=== PATIENT | female | born 1955 | race Caucasian/White ===

== ENCOUNTER → 2017-06-21 | Day surgery (SDC) | payer BC ==
[~2017-06-21] VITALS: Ht 170.2 cm; Wt 88.6 kg
[~2017-06-21] MED LIST: ATEN-173 PO; CALC500T83 PO; EPGI10M; LIDOCAINE HCL 2% 2 ML VIAL (20MG/ML) ONE; LOSA50TA6 PO; MYCO500T4 PO; PROPOFOL IV EMULSION 10 MG/ML 20 ML VIAL IV ONE; SODI650T8 PO; SODIUM CHLORIDE 0.9% 500ML 500 ML IV ONE; VTMD1000 PO
[2017-06-21 08:04] VITALS: Ht 170.2 cm; Wt 88.6 kg
--- NOTE | 2017-06-21 08:42 | Endo History and Physical ---
History & Physical Date of Service: Jun 21, 2017. Chief Complaint: SCREENING Referring Physician: DR ALL ZUNIGA History of Present Illness patient for screening colonoscopy Past Surgical History Hx Cardiac Surgery: No Hx Internal Defibrillator: No Hx Pacemaker: No Hx Abdominal Surgery: No Hx of Implantable Prosthesis: No Hx Post-Op Nausea and Vomiting: No Hx Orthopedic: Yes (RT ACL RECONSTRUCTION) Hx Urinary Tract Surgery: Yes (KIDNEY BIOPSY) Family History None Social History Smoking Status: Never Smoker Hx Substance Use: No Allergies Coded Allergies: NO KNOWN DRUG ALLERGIES (Verified Allergy, Unknown, ., 06/21/17) Current Medications Reported Home Medications Medications Dose Route/Sig Max Daily Dose Days Date Category Procrit (Epoetin Rogerio) 10,000 Units Inj 06/21/17 Reported Sodium Bicarbonate 650 Mg Tab 2 Tab PO BID 06/12/17 Reported Calcium 500 Mg Tab 2 Tab PO QAM 06/12/17 Reported Vitamin D3 (Cholecalciferol) 1,000 Inter.unit Tab 2 Tab PO QAM 06/12/17 Reported Cellcept (Mycophenolate Mofetil) 500 Mg Tab 2 Tab PO BID 06/12/17 Reported Tenormin (Atenolol) 25 Mg Tab 25 Mg PO HS 06/12/17 Reported Cozaar (Losartan Potassium) 50 Mg Tab 50 Mg PO BID 06/12/17 Reported Vital Signs Weight (Kilograms): 88.64 Height (Feet): 5 Height (Inches): 7 Date Time Temp Pulse Resp B/P (MAP) Pulse Ox O2 Delivery O2 Flow Rate FiO2 06/21/17 08:10 36.6 60 16 163/54 (90) 98 Room Air Physical Exam General Appearance: no apparent distress Respiratory/Chest: Auscultation: breath sounds normal Cardiovascular: Heart Auscultation: RRR Abdomen: Inspection & Palpation: soft Liver: non-tender Assessment and Plan stable for colonoscopy
--- NOTE | 2017-06-21 09:11 | Discharge Instructions ---
Endoscopy Patient Instructions Date / Procedure(s) Performed Jun 21, 2017. Colonoscopy Allergy Information Coded Allergies: NO KNOWN DRUG ALLERGIES (Verified Allergy, Unknown, ., 06/21/17) Discharge Date / Findings Jun 21, 2017. Hemorrhoids otherwise normal colonoscopy Provider Instructions Activity Restrictions - No exercising or heavy lifting for 24 hours. - Do not drink alcohol the day of the procedure. - Do not drive a car or operate machinery until the day after the procedure. - Do not make any important decisions or sign important papers in 24 hours after the procedure. Following Day: - Return to full activity which may include returning to work/school. Diet Start your diet with liquids and light foods (jello, soup, juice, toast). Then eat your usual diet if not nauseated. Treatment For Common After Affects For mild abdominal pain, bloating, or excessive gas: - Rest - Eat lightly - Lie on right side Follow-Up Information Follow-up with DR ALL ZUNIGA as scheduled Anesthesia Information What You Should Know You have had a procedure that required some medicine to reduce anxiety and discomfort. This treatment is called moderate sedation. After receiving the treatment, you may be sleepy, but you will be able to breathe on your own. The effects of the treatment may last for several hours. Follow these instructions along with Activity/Diet recommendations noted above: * Do NOT do anything where dizziness or clumsiness would be dangerous. * Rest quietly at home today, then you can be up and about tomorrow. * Have a responsible person stay with you the rest of today. * You may have had an I.V. today. If so, you may take the dressing off later today. Recommendations Call your doctor if: * Trouble breathing * Continuous vomiting for more than 24 hours * Temperature above 101 degrees * Severe abdominal pain or bloating * Pain not relieved by pain medicine ordered * There is increased drainage or redness from any incision * A large amount of rectal bleeding greater than 2-3 tablespoons. (If you had a polyp/s removed or have hemorrhoids, a small amount of blood - from the rectum is to be expected.) * You have any unanswered questions or concerns. IN THE EVENT OF A SERIOUS EMERGENCY, GO TO THE NEAREST EMERGENCY ROOM Your discharge instructions were prepared by provider Marino Mendoza. Patient Instructions Signature Page Nicolasa Hays Patient (or Guardian) Signature/Date: I have read and understand the instructions given to me by my caregivers. Caregiver/RN/Doctor Signature/Date: The above-named patient and/or guardian has received patient instructions on this date. + Original Patient Signature Page (only) stays with chart. Please make copy for patient.
--- NOTE | 2017-06-21 09:28 | Anesthesiology Progress Note ---
Anesthesia Post Op Note Date & Time Jun 21, 2017 at 09:28 Vital Signs Pain Intensity: 0 Vital Signs Past 12 Hours Date Time Temp Pulse Resp B/P (MAP) Pulse Ox O2 Delivery O2 Flow Rate FiO2 06/21/17 09:12 64 20 112/59 (76) 99 Room Air 06/21/17 08:10 36.6 60 16 163/54 (90) 98 Room Air Notes Mental Status: alert / awake / arousable, participated in evaluation Pt Amnestic to Procedure: Yes Nausea / Vomiting: adequately controlled Pain: adequately controlled Airway Patency, RR, SpO2: stable & adequate BP & HR: stable & adequate Hydration State: stable & adequate Anesthetic Complications: no major complications apparent
--- NOTE | 2017-06-21 09:29 | GI REPORT ---
Procedure Date: 06/21/2017 8:26 AM Procedure: Colonoscopy Indications: Screening for colorectal malignant neoplasm Medicines: See the Anesthesia note for documentation of the administered medications Complications: No immediate complications. Estimated Blood Loss: Estimated blood loss: none. Procedure: Pre-Anesthesia Assessment: - Prior to the procedure, a History and Physical was performed, and patient medications, allergies and sensitivities were reviewed. The patient's tolerance of previous anesthesia was reviewed. - The risks and benefits of the procedure and the sedation options and risks were discussed with the patient. All questions were answered and informed consent was obtained. - Patient identification and proposed procedure were verified prior to the procedure by the physician and the nurse. The procedure was verified in the pre-procedure area. - Pre-procedure physical examination revealed no contraindications to sedation. - After reviewing the risks and benefits, the patient was deemed in satisfactory condition to undergo the procedure. After I obtained informed consent, the scope was passed under direct vision. Throughout the procedure, the patient's blood pressure, pulse, and oxygen saturations were monitored continuously. The On-site loaner was introduced through the anus and advanced to the terminal ileum, with identification of the appendiceal orifice and IC valve. The colonoscopy was performed without difficulty. The patient tolerated the procedure well. The quality of the bowel preparation was good. Findings: The perianal and digital rectal examinations were normal. The terminal ileum appeared normal. Internal hemorrhoids were found during retroflexion. The hemorrhoids were small. The exam was otherwise without abnormality on direct and retroflexion views. Impression: - The examined portion of the ileum was normal. - Internal hemorrhoids. - The examination was otherwise normal on direct and retroflexion views. - No specimens collected. Recommendation: - Repeat colonoscopy in 10 years for screening purposes. - Discharge patient to home. Marino Mendoza M.D. Marino Mendoza MD 06/21/2017 9:29:34 AM This report has been signed electronically. Note Initiated On: 06/21/2017 8:26 AM I attest to the content of the Intraoperative Record and orders documented therein, exceptions below
[2017-06-21 09:42] VITALS: BP 109/58; PULSE 61; O2SAT 99
== END | disposition home or self-care (01) ==
LOC: C.GI 07:49
PROVIDERS: ATTEND Internal Medicine Gastroenterology
DX: Z12.11 Encounter for screening for malignant neoplasm of colon (principal); K64.8 Other hemorrhoids; I12.9 Hypertensive chronic kidney disease with stage 1 through stage 4 chronic kidney disease, or unspecified chronic kidney disease; N18.5 Chronic kidney disease, stage 5; K21.9 Gastro-esophageal reflux disease without esophagitis

== ENCOUNTER 2017-08-20 18:49 | Inpatient (IN) | payer BC ==
[~2017-08-20] VITALS: Ht 170.2 cm; Wt 86.2 kg
[~2017-08-20 18:49] MED LIST changes: -EPGI10M; +EPGI10M SQ; -LIDOCAINE HCL 2% 2 ML VIAL (20MG/ML) ONE; -PROPOFOL IV EMULSION 10 MG/ML 20 ML VIAL IV ONE; -SODIUM CHLORIDE 0.9% 500ML 500 ML IV ONE
[2017-08-20 18:56] VITALS: Ht 170.2 cm; Wt 86.2 kg
[2017-08-20] MEDS ORDERED: SODIUM CHLORIDE 0.9% 500ML 500 ML IV STA (19:12)
--- NOTE | 2017-08-20 19:30 | EMERGENCY ROOM VISIT NOTE ---
History Report prepared by Terri: Robin Nunez Under the Supervision of: Dr. Jose Sofia M.D. First contact with patient: 19:00 Chief Complaint: VOMITING Stated Complaint: VOMITING, NOT FEELING WELL,STAGE 5 KIDNEY DISEASE History of Present Illness The patient is a 62 year old female who presents to the Emergency Room with complaints of intermittent vomiting beginning a month ago. The patient states she has been vomiting and feeling fatigued for the past month. She reports she sometimes vomits in the morning and sometimes vomits in the evening. The patient notes she is also experiencing diarrhea and abdominal pain. She states her diarrhea is daily, and she has more abdominal pain at night than in the morning. The patient reports she had a colonoscopy after her symptoms began. She notes she has a history of C-3, stage 5 kidney disease. The patient states she has a follow up appointment on September [address] Fletcher. She reports she called Dr. Fletcher and was told to come to the ED. The patient notes a history of sinusitis. She states it feels different than before and does not feel like there is drainage. The patient reports she has not tried nasal spray. She denies pain with pressing on her abdomen. Source of History: patient Onset: a month ago Quality: other (vomiting) Timing: intermittent Associated Symptoms: + abdominal pain, + fatigue Review of Systems See HPI for pertinent positives & negatives. A total of 10 systems reviewed and were otherwise negative. Past Medical & Surgical Medical Problems: (1) C3 glomerulonephritis (2) CKD (chronic kidney disease) (3) CKD (chronic kidney disease), stage IV (4) HTN (hypertension) (5) MGUS (monoclonal gammopathy of unknown significance) (6) Sinusitis Surgical Problems: (1) S/P ACL repair (2) S/P hemorrhoidectomy Family History Patient reports no known family medical history. Social History Smoking Status: Never Smoker Marital Status: Housing Status: lives with significant other Occupation Status: employed Current/Historical Medications Scheduled Amlodipine (Norvasc), 10 MG PO DAILY Atenolol (Tenormin), 25 MG PO DAILY Calcium (Calcium), 2 TAB PO QAM Cholecalciferol (Vitamin D3), 2 TAB PO QAM Epoetin Rogerio (Procrit), 1 DOSE SQ QOWEEK Losartan Potassium (Cozaar), 50 MG PO BID Mycophenolate Mofetil (Cellcept), 2 TAB PO BID Omeprazole (Omeprazole), 1 TAB PO DAILY Scheduled PRN Sodium Bicarbonate (Sodium Bicarbonate), 2 TAB PO BID PRN for Allergies Coded Allergies: NO KNOWN DRUG ALLERGIES (Verified Allergy, Unknown, ., 06/21/17) Physical Exam Vital Signs Date Time Temp Pulse Resp B/P (MAP) Pulse Ox O2 Delivery O2 Flow Rate FiO2 08/20/17 21:06 70 19 119/57 Room Air 08/20/17 19:56 Room Air 08/20/17 19:56 Room Air 08/20/17 18:56 36.5 74 18 107/71 99 Room Air Physical Exam GENERAL: Awake, alert, well-appearing, in no acute distress HENT: Normocephalic, atraumatic. Oropharynx unremarkable. EYES: Normal conjunctiva. Sclera non-icteric. NECK: Supple. No nuchal rigidity. FROM. No JVD. RESPIRATORY: Clear to auscultation. CARDIAC: Regular rate, normal rhythm. Extremities warm and well perfused. Pulses equal. ABDOMEN: Soft, non-distended. No tenderness to palpation. No rebound or guarding. No masses. RECTAL: Deferred. MUSCULOSKELETAL: Chest examination reveals no tenderness. The back is symmetrical on inspection without obvious abnormality. There is no CVA tenderness to palpation. No joint edema. LOWER EXTREMITIES: Calves are equal size bilaterally and non-tender. No edema. No discoloration. NEURO: Normal sensorium. No sensory or motor deficits noted. SKIN: No rash or jaundice noted. Medical Decision & Procedures Laboratory Results 08/20/17 17:38 Red Blood Count 3.70, Mean Corpuscular Volume 83.0, Mean Corpuscular Hemoglobin 27.6, Mean Corpuscular Hemoglobin Concent 33.2, Mean Platelet Volume 10.3, Neutrophils (%) (Auto) 87.3, Lymphocytes (%) (Auto) 8.2, Monocytes (%) (Auto) 3.7, Eosinophils (%) (Auto) 0.5, Basophils (%) (Auto) 0.1, Neutrophils # (Auto) 9.34, Lymphocytes # (Auto) 0.88, Monocytes # (Auto) 0.40, Eosinophils # (Auto) 0.05, Basophils # (Auto) 0.01 08/20/17 17:38 Test 08/20/17 17:38 White Blood Count 10.70 K/uL (4.8-10.8) Red Blood Count 3.70 M/uL (4.2-5.4) Hemoglobin 10.2 g/dL (12.0-16.0) Hematocrit 30.7 % (37-47) Mean Corpuscular Volume 83.0 fL (80-100) Mean Corpuscular Hemoglobin 27.6 pg (25-34) Mean Corpuscular Hemoglobin Concent 33.2 g/dl (32-36) Platelet Count 285 K/uL (130-400) Mean Platelet Volume 10.3 fL (7.4-10.4) Neutrophils (%) (Auto) 87.3 % Lymphocytes (%) (Auto) 8.2 % Monocytes (%) (Auto) 3.7 % Eosinophils (%) (Auto) 0.5 % Basophils (%) (Auto) 0.1 % Neutrophils # (Auto) 9.34 K/uL (1.4-6.5) Lymphocytes # (Auto) 0.88 K/uL (1.2-3.4) Monocytes # (Auto) 0.40 K/uL (0.11-0.59) Eosinophils # (Auto) 0.05 K/uL (0-0.5) Basophils # (Auto) 0.01 K/uL (0-0.2) RDW Standard Deviation 43.3 fL (36.4-46.3) RDW Coefficient of Variation 14.4 % (11.5-14.5) Immature Granulocyte % (Auto) 0.2 % Immature Granulocyte # (Auto) 0.02 K/uL (0.00-0.02) Ovalocytes 1+ Anion Gap 9.0 mmol/L (3-11) Est Creatinine Clear Calc Drug Dose 17.2 ml/min Estimated GFR () 14.0 Estimated GFR (Non- 12.0 BUN/Creatinine Ratio 13.7 (10-20) Calcium Level 8.5 mg/dl (8.5-10.1) Total Bilirubin 0.4 mg/dl (0.2-1) Direct Bilirubin < 0.1 mg/dl (0-0.2) Aspartate Amino Transf (AST/SGOT) 5 U/L (15-37) Alanine Aminotransferase (ALT/SGPT) 10 U/L (12-78) Alkaline Phosphatase 52 U/L (45-117) Total Creatine Kinase 47 U/L (26-192) Creatine Kinase MB 0.6 ng/ml (0.5-3.6) Creatine Kinase MB Ratio 1.3 (0-3.0) Troponin I < 0.015 ng/ml (0-0.045) Total Protein 7.5 gm/dl (6.4-8.2) Albumin 3.0 gm/dl (3.4-5.0) Lipase 185 U/L (73-393) Labs reviewed by ED physician. Medications Administered Medications (Trade) Dose Ordered Sig/Darrell Route Start Time Stop Time Status Last Admin Dose Admin Sodium Chloride 500 ml @ 999 mls/hr Q31M STAT IV 08/20/17 19:12 08/20/17 19:42 DC 08/20/17 20:02 999 MLS/HR Sodium Chloride 1,000 ml @ 999 mls/hr Q1H1M STAT IV 08/20/17 20:19 08/20/17 21:19 DC 08/20/17 20:22 999 MLS/HR ECG Per My Interpretation Indication: vomiting Rate (beats per minute): 66 Rhythm: normal sinus Findings: other (No ST elevation or depression) ED Course 1904: Past medical records reviewed. The patient was evaluated in room C02B. A complete history and physical examination was performed. 1911: Ordered Sodium Chloride 500 ml @ 999 mls/hr IV 2019: Ordered Sodium Chloride 1000 ml @ 999 mls/hr IV 2020: I discussed the patient's case with Dr. Fletcher, Nephrology. He suggested the patient be evaluated by the hospitalist and be NPO after midnight. He also suggested the hospitalist put a consult in for Dr. Graham, General Surgery. 2028: I discussed the patient's case with Dr. Murphy, [facility] Hospitalist. The patient will be evaluated for further management and care. Medical Decision Differential diagnosis: Etiologies such as gastroenteritis, food borne illness, infections, appendicitis , diverticulitis, inflammatory bowel disease, obstruction, GI bleed, biliary pathology, as well as others were entertained. This is a 62-year-old female who presents the emergency department complaining of weakness along with dizziness. The patient has a history of renal failure. Her creatinine clearance was found to be 12. I did discuss her case with her on -call barrel cap setter who asked that the patient be admitted to the hospital. Did discuss my findings with the patient and family who are in agreement with the treatment plan. While in the emergency department the patient did receive 2 normal saline boluses. Medication Reconcilliation Current Medication List: was personally reviewed by me Blood Pressure Screening Patient's blood pressure: Normal blood pressure Blood pressure disposition: Did not require urgent referral Consults Time Called: 2017 Consulting Physician: Dr. Fletcher, Nephrology Returned Call: 2019 I discussed the patient's case with Dr. Fletcher, Nephrology. He suggested the patient be evaluated by the hospitalist and be NPO after midnight. He also suggested the hospitalist put a consult in for Dr. Graham, General Surgery. Additional Consults: Time Called: 2020 [facility]: 2028 Additional Comments: I discussed the patient's case with [facility]. The patient will be evaluated for further management and care. Impression Primary Impression: Acute renal failure Scribe Attestation The scribe's documentation has been prepared under my direction and personally reviewed by me in its entirety. I confirm that the note above accurately reflects all work, treatment, procedures, and medical decision making performed by me. Departure Information Dispostion Being Evaluated By Hospitalist Referrals Peace Overton D.ORadha (PCP) Patient Instructions My [facility] Problem Qualifiers Primary Impression: Acute renal failure Acute renal failure type: unspecified Qualified Codes: N17.9 - Acute kidney failure, unspecified
[2017-08-20 19:56] LABS: HEMATOCRIT 30.7 % (37-47); HEMOGLOBIN 10.2 g/dL (12.0-16.0); MEAN CORPUSCULAR HEMOGLOBIN 27.6 pg (25-34); MEAN CORPUSCULAR HGB CONC 33.2 g/dl (32-36); MEAN PLATELET VOLUME 10.3 fL (7.4-10.4); PLATELET COUNT 285 K/uL (130-400); RED CELL DISTRIBUTION WIDTH CV 14.4 % (11.5-14.5); RED CELL DISTRIBUTION WIDTH SD 43.3 fL (36.4-46.3)
[2017-08-20 20:17] LABS: ALT/SGPT 10 U/L (12-78); AST/SGOT 5 U/L (15-37); BLOOD UREA NITROGEN 52 mg/dl (7-18); CALCIUM 8.5 mg/dl (8.5-10.1); CARBON DIOXIDE 17 mmol/L (21-32); CREATININE 3.77 mg/dl (0.60-1.20); GLUCOSE 104 mg/dl (70-99); LIPASE 185 U/L (73-393); POTASSIUM 4.9 mmol/L (3.5-5.1); SODIUM 137 mmol/L (136-145)
[2017-08-20] MEDS ORDERED: SODIUM CHLORIDE 0.9% 1000ML 1,000 ML IV STA (20:19)
[2017-08-20 20:22] LABS: ALKALINE PHOSPHATASE 52 U/L (45-117); CKMB 0.6 ng/ml (0.5-3.6); TOTAL PROTEIN 7.5 gm/dl (6.4-8.2)
[2017-08-20] MEDS ORDERED: AMLO-110 PO (20:50)
[2017-08-20] MEDS ORDERED: SODIUM CHLORIDE 0.9% 1000ML 1,000 ML IV SCH (21:08)
[2017-08-20] MEDS ORDERED: ONDANSETRON INJ 2 MG/ML 2 ML VIAL IV PRN (21:15)
[2017-08-20] MEDS ORDERED: OMEP20TA PO (21:26)
[2017-08-20 21:52] LABS: BASO % 0.1 %; BASO ABS # 0.01 K/uL (0-0.2); EOS % 0.5 %; EOS ABS # 0.05 K/uL (0-0.5); IG# 0.02 K/uL (0.00-0.02); LYMPH % 8.2 %; LYMPH ABS # 0.88 K/uL (1.2-3.4); MONO % 3.7 %; NEUT % 87.3 %; NEUT ABS # 9.34 K/uL (1.4-6.5)
--- NOTE | 2017-08-20 22:08 | History and Physical ---
History & Physical Date & Time of Service: Aug 20, 2017 at 21:39 Chief Complaint: Vomiting, Not Feeling Well,Stage 5 Kidney Disease Primary Care Physician: Peace Overton D.O. 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 In the last month she reports dry heaving some occasional abdominal pain, and some low appetite which is persistent. She is tolerating p.o. In the last 2-3 days she reports no energy with significant fatigue frequent sleeping. Review of systems also reveals a dry cough that is chronic with postnasal drip. Patient denies using nasal steroids. For the last several weeks she reports 2 episodes of diarrhea daily that has not changed. She denies any fevers chills, chest pain or shortness of breath. She does report some cold intolerance. Her recommended she start Prilosec [id number] which she started at 20 mg daily. She is currently being evaluated by the transplant service for renal transplant. She was encouraged to present to the ER by her childcare center director Dr. Chance jiang in preparation for starting dialysis. Past Medical/Surgical History Medical Problems: (1) C3 glomerulonephritis Status: Chronic (2) CKD (chronic kidney disease), stage IV Status: Chronic (3) HTN (hypertension) Status: Chronic (4) MGUS (monoclonal gammopathy of unknown significance) Status: Chronic (5) Sinusitis Status: Resolved Surgical Problems: (1) S/P ACL repair Status: Chronic (2) S/P hemorrhoidectomy Status: Chronic Family History Autoimmune hepatitis MOTHER Cancer of unknown primary origin FATHER FH: CAD (coronary artery disease) BROTHER FH: brain cancer BROTHER FH: prostate cancer BROTHER Social History Smoking Status: Never Smoker Smokeless Tobacco Use: No Alcohol Use: none Drug Use: none Marital Status: Housing status: lives with significant other Occupational Status: employed (realtor) Immunizations History of Influenza Vaccine: Yes Influenza Vaccine Date: Jan 11, 2017 History of Tetanus Vaccine?: Yes Tetanus Immunization Date: Oct 19, 2006 History of Pneumococcal: Yes Pneumococcal Date: Dec 03, 2015 History of Hepatitis B Vaccine: Unknown Allergies Coded Allergies: NO KNOWN DRUG ALLERGIES (Verified Allergy, Unknown, ., 06/21/17) Home Medications Scheduled Amlodipine (Norvasc), 10 MG PO DAILY Atenolol (Tenormin), 25 MG PO DAILY Calcium (Calcium), 2 TAB PO QAM Cholecalciferol (Vitamin D3), 2 TAB PO QAM Epoetin Rogerio (Procrit), 1 DOSE SQ QOWEEK Losartan Potassium (Cozaar), 50 MG PO BID Mycophenolate Mofetil (Cellcept), 2 TAB PO BID Omeprazole (Omeprazole), 1 TAB PO DAILY Scheduled PRN Sodium Bicarbonate (Sodium Bicarbonate), 2 TAB PO BID PRN for Review of Systems At least 10 systems were reviewed and negative except as indicated in HPI. Physical Exam Vital Signs Date Time Temp Pulse Resp B/P (MAP) Pulse Ox O2 Delivery O2 Flow Rate FiO2 08/20/17 21:06 70 19 119/57 Room Air 08/20/17 19:56 Room Air 08/20/17 19:56 Room Air 08/20/17 18:56 36.5 74 18 107/71 99 Room Air General Appearance: WD/WN, no apparent distress Head: normocephalic, atraumatic Eyes: normal inspection, PERRL, sclerae normal, + pertinent finding (Mucous members moist) ENT: hearing grossly normal Neck: trachea midline Respiratory/Chest: lungs clear, normal breath sounds, no respiratory distress, no accessory muscle use Cardiovascular: regular rate, rhythm, no edema, no gallop, no JVD, no murmur, normal peripheral pulses Abdomen/GI: normal bowel sounds, non tender, soft Back: normal inspection Extremities/Musculoskelatal: normal inspection, no calf tenderness, normal capillary refill, no pedal edema, normal range of motion Neurologic/Psych: outside sales engineer II-XII nml as tested, no motor/sensory deficits, alert, normal mood/affect, oriented x 3 Skin: normal color, warm/dry, no rash Diagnostics Laboratory Results 08/20/17 17:38 Red Blood Count 3.70, Mean Corpuscular Volume 83.0, Mean Corpuscular Hemoglobin 27.6, Mean Corpuscular Hemoglobin Concent 33.2, Mean Platelet Volume 10.3 08/20/17 17:38 Test 08/20/17 17:38 White Blood Count 10.70 K/uL (4.8-10.8) Red Blood Count 3.70 M/uL (4.2-5.4) Hemoglobin 10.2 g/dL (12.0-16.0) Hematocrit 30.7 % (37-47) Mean Corpuscular Volume 83.0 fL (80-100) Mean Corpuscular Hemoglobin 27.6 pg (25-34) Mean Corpuscular Hemoglobin Concent 33.2 g/dl (32-36) Platelet Count 285 K/uL (130-400) Mean Platelet Volume 10.3 fL (7.4-10.4) RDW Standard Deviation 43.3 fL (36.4-46.3) RDW Coefficient of Variation 14.4 % (11.5-14.5) Anion Gap 9.0 mmol/L (3-11) Est Creatinine Clear Calc Drug Dose 17.2 ml/min Estimated GFR () 14.0 Estimated GFR (Non- 12.0 BUN/Creatinine Ratio 13.7 (10-20) Calcium Level 8.5 mg/dl (8.5-10.1) Total Bilirubin 0.4 mg/dl (0.2-1) Direct Bilirubin < 0.1 mg/dl (0-0.2) Aspartate Amino Transf (AST/SGOT) 5 U/L (15-37) Alanine Aminotransferase (ALT/SGPT) 10 U/L (12-78) Alkaline Phosphatase 52 U/L (45-117) Total Creatine Kinase 47 U/L (26-192) Creatine Kinase MB 0.6 ng/ml (0.5-3.6) Creatine Kinase MB Ratio 1.3 (0-3.0) Troponin I < 0.015 ng/ml (0-0.045) Total Protein 7.5 gm/dl (6.4-8.2) Albumin 3.0 gm/dl (3.4-5.0) Lipase 185 U/L (73-393) Results Past 24 Hours Test 08/20/17 17:38 Range/Units White Blood Count 10.70 4.8-10.8 K/uL Red Blood Count 3.70 4.2-5.4 M/uL Hemoglobin 10.2 12.0-16.0 g/dL Hematocrit 30.7 37-47 % Mean Corpuscular Volume 83.0 80-100 fL Mean Corpuscular Hemoglobin 27.6 25-34 pg Mean Corpuscular Hemoglobin Concent 33.2 32-36 g/dl Platelet Count 285 130-400 K/uL Mean Platelet Volume 10.3 7.4-10.4 fL RDW Standard Deviation 43.3 36.4-46.3 fL RDW Coefficient of Variation 14.4 11.5-14.5 % Sodium Level 137 136-145 mmol/L Potassium Level 4.9 3.5-5.1 mmol/L Chloride Level 111 98-107 mmol/L Carbon Dioxide Level 17 21-32 mmol/L Anion Gap 9.0 3-11 mmol/L Blood Urea Nitrogen 52 7-18 mg/dl Creatinine 3.77 0.60-1.20 mg/dl Est Creatinine Clear Calc Drug Dose 17.2 ml/min Estimated GFR () 14.0 Estimated GFR (Non- 12.0 BUN/Creatinine Ratio 13.7 10-20 Random Glucose 104 70-99 mg/dl Calcium Level 8.5 8.5-10.1 mg/dl Total Bilirubin 0.4 0.2-1 mg/dl Direct Bilirubin < 0.1 0-0.2 mg/dl Aspartate Amino Transf (AST/SGOT) 5 15-37 U/L Alanine Aminotransferase (ALT/SGPT) 10 12-78 U/L Alkaline Phosphatase 52 45-117 U/L Total Creatine Kinase 47 26-192 U/L Creatine Kinase MB 0.6 0.5-3.6 ng/ml Creatine Kinase MB Ratio 1.3 0-3.0 Troponin I < 0.015 0-0.045 ng/ml Total Protein 7.5 6.4-8.2 gm/dl Albumin 3.0 3.4-5.0 gm/dl Lipase 185 73-393 U/L Impression Assessment and Plan 62-year-old female with known CKD stage IV secondary to C3 glomerulonephritis in the setting of MGUS presents with worsening malaise, fatigue and decreased appetite consistent with worsening renal function. 1. CKD stage IV secondary to [id number] GFR is 12. Case discussed with Dr. Fletcher who recommends starting dialysis. This was reviewed with the patient he will be n.p.o. after midnight. Consult vascular surgery was placed for hemodialysis catheter placement in the morning. At this time will continue CellCept and losartan. Appreciate nephrology recs. 2. Anemia secondary to CKD-continue Procrit per outpatient nephrology plan 3. Metabolic acidosis-likely secondary to renal failure 4. Diarrhea-stool studies were ordered. She does not appear dehydrated at this time. Continue supportive care. 5. Hypertension-controlled. Continue atenolol, amlodipine, losartan. DVT prophylaxis-heparin Full code Disposition-telemetry [facility] Status VTE Prophylaxis Will order VTE Prophylaxis: Yes
[2017-08-20 22:11] VITALS: BP 127/70; PULSE 79; TEMP 36.8; O2SAT 96; BMI 29.0
[2017-08-21] VITALS (17 sets, daily range): BP systolic 107–160; BP diastolic 56–84; PULSE 64–79; TEMP 36.5–37.3; O2SAT 95–99
[2017-08-21] MEDS: HEPARIN SOD 5000 UNIT/0.5 ML CARP SQ SCH ×3 (05:47→20:03)
--- NOTE | 2017-08-21 06:45 | Clinical Documentation Query ---
CLINICAL DOCUMENTATION QUERY 62 yo female with history of CKD IV, creatinine = 3.77, GFR = 12 is admitted with plans to start dialysis. Patient to receive a hemodialysis catheter placement. In your clinical opinion is this patient being managed for: ( x ) End stage renal disease ( ) Not Agree ( ) Other explanation of clinical findings (Please Explain) ( ) Unable to determine (Please Define) ( ) Need to Discuss The medical record reflects the following clinical findings, treatment, and risk factors. Clinical Indicators: As above Treatment: Nephrology and vascular surgery consults, dialysis Risk Factors: Age, C3GN, CKD, vomiting, diarrhea Please clarify and document your clinical opinion in the progress notes and discharge summary. Terms such as "probable", "suspected", "likely", "questionable", "possible", or "still to be ruled out" are acceptable. IF IN AGREEMENT, YOU MUST DOCUMENT ABOVE DIAGNOSTIC STATEMENT IN DAILY PROGRESS NOTES AND DISCHARGE SUMMARY. This document is not part of the patient's record. Thank You, Citlali Daniels RN [phone]
[2017-08-21 07:23] LABS: HEMOGLOBIN 8.9 g/dL (12.0-16.0); MEAN CELL VOLUME 83.6 fL (80-100); MEAN CORPUSCULAR HEMOGLOBIN 27.6 pg (25-34); PLATELET COUNT 239 K/uL (130-400); RED CELL DISTRIBUTION WIDTH CV 14.4 % (11.5-14.5); RED CELL DISTRIBUTION WIDTH SD 43.6 fL (36.4-46.3); WHITE BLOOD COUNT 7.78 K/uL (4.8-10.8)
[2017-08-21 08:00] LABS: CREATININE 3.46 mg/dl (0.60-1.20); PHOSPHORUS 4.4 mg/dl (2.5-4.9); POTASSIUM 4.7 mmol/L (3.5-5.1)
[2017-08-21] MEDS ORDERED: CEFAZOLIN SOD 2000MG/15 ML IV PUSH IV ONE (08:33)
--- NOTE | 2017-08-21 08:36 | Surgery Consultation ---
Consultation Date of Service Aug 21, 2017. Chief Complaint Acute on chronic renal failure History of Present Illness The patient is a 62 year old female who has worsening kidney function. She now is need of dialysis. Permcath was recommended. Vitals Vital Signs Past 12 Hours Date Time Temp Pulse Resp B/P (MAP) Pulse Ox O2 Delivery O2 Flow Rate FiO2 08/21/17 07:56 36.7 79 16 127/56 (79) 95 Room Air 08/21/17 04:00 Room Air 08/21/17 03:59 37.3 77 18 132/75 (94) 98 Room Air 08/21/17 00:00 Room Air 08/21/17 00:00 37.0 69 18 107/62 (77) 97 Room Air 08/20/17 22:11 36.8 79 20 127/70 96 Room Air 08/20/17 21:43 36.5 70 19 119/57 99 08/20/17 21:06 70 19 119/57 Room Air Allergies Coded Allergies: NO KNOWN DRUG ALLERGIES (Verified Allergy, Unknown, ., 06/21/17) Home Medications Scheduled Amlodipine (Norvasc), 10 MG PO DAILY Atenolol (Tenormin), 25 MG PO DAILY Calcium (Calcium), 2 TAB PO QAM Cholecalciferol (Vitamin D3), 2 TAB PO QAM Epoetin Rogerio (Procrit), 1 DOSE SQ QOWEEK Losartan Potassium (Cozaar), 50 MG PO BID Mycophenolate Mofetil (Cellcept), 2 TAB PO BID Omeprazole (Omeprazole), 1 TAB PO DAILY Scheduled PRN Sodium Bicarbonate (Sodium Bicarbonate), 2 TAB PO BID PRN for Problem List Medical Problems: (1) C3 glomerulonephritis (2) CKD (chronic kidney disease) (3) CKD (chronic kidney disease), stage IV (4) HTN (hypertension) (5) MGUS (monoclonal gammopathy of unknown significance) (6) Sinusitis Surgical Problems: (1) S/P ACL repair (2) S/P hemorrhoidectomy Surgical / Medical History Hx Cardiac Surgery: No Hx Abdominal Surgery: No Hx Cancer Surgery: No Hx Thoracic Surgery: No Hx Orthopedic: Yes (RT ACL RECONSTRUCTION) Hx Urinary Tract Surgery: Yes (KIDNEY BIOPSY) HX Other Surgery: No Family History Autoimmune hepatitis MOTHER Cancer of unknown primary origin FATHER FH: CAD (coronary artery disease) BROTHER FH: brain cancer BROTHER FH: prostate cancer BROTHER Social History Smoking Status: Never Smoker Hx Substance Use -Type & Amnt: No Review of Systems Constitutional: No chills, No diaphoresis, No fever, No malaise, No weakness, No weight gain, No weight loss, No sweats, No fatigue, No problem reported Respiratory: No cough, No cyanosis, No DANIEL, No hemoptysis, No orthopnea, No PND , No short of breath, No sputum production, No stridor, No wheezing, No dyspnea , No problem reported Cardiovascular: No chest pain, No chest tightness, No chest pressure, No palpitations, No syncope, No diaphoresis, No edema, No intermittent claudication , No orthopnea, No cyanosis, No mumur, No lightheadedness, No paroxysmal nocturnal dyspnea, No problem reported Gastrointestinal: No abdominal pain, No constipation, No diarrhea, No nausea, No vomiting, No anorexia, No appetite changes, No belching, No flatulence, No food intolerance, No hematemesis, No hemorrhoids, No hematochezia, No stool changes, No heartburn, No indigestion, No dysphagia, No rectal bleeding, No problem reported Musculoskeletal: No back pain, No gout, No joint pain, No joint swelling, No muscle pain, No muscle stiffness, No muscle weakness, No neck pain, No problem reported Neurologic: No dizziness, No weakness, No headache, No lethargy, No numbness, No paresthesia, No pre-existing deficit, No seizures, No tics, No tingling, No tremors, No vertigo, No memory loss, No LOC, No problem reported Psychiatric: + anxiety, No alcohol abuse, No auditory hallucinations, No depression, No drug abuse, No homicidal ideation, No mood changes, No suicidal ideation, No visual hallucinations, No problem reported Physical Exam Constitutional: General Apperance: heathly-appearing, well-nourished, well-developed Level of Distress: NAD Ambulation: ambulating normally Lungs: Auscultation: breath sounds normal Cardiovascular: Heart Auscultation: RRR Peripheral Pulses: Pulses: full and equal Abdomen: Inspection & Palpation: soft Extremities: Upper Right: no cyanosis, no edema, no varicosities, no palpable cord, no clubbing, no ulcers, no mottling Upper Left: no cyanosis, no edema, no palpable cord, no clubbing, no ulcers , no mottling Lower Right: no cyanosis, no edema, no varicosities, no palpable cord, no clubbing, no ulcers, no mottling Lower Left: no cyanosis, no edema, no varicosities, no palpable cord, no clubbing, no ulcers, no mottling Neurologic: Cranial Nerves: grossly intact Assessment and Plan Imp: End stage renal disease Plan: Patient for insertion of permcath. I have discussed the risks options and benefits of the procedure with the patient. The patient understands the risks options and benefits and agrees to the procedure.
--- NOTE | 2017-08-21 08:37 | Pre Sedation Assessment ---
Pre Sedation Assessment General Date of Sedation: Aug 21, 2017. Vital Signs Past 12 Hours Date Time Temp Pulse Resp B/P (MAP) Pulse Ox O2 Delivery O2 Flow Rate FiO2 08/21/17 07:56 36.7 79 16 127/56 (79) 95 Room Air 08/21/17 04:00 Room Air 08/21/17 03:59 37.3 77 18 132/75 (94) 98 Room Air 08/21/17 00:00 Room Air 08/21/17 00:00 37.0 69 18 107/62 (77) 97 Room Air 08/20/17 22:11 36.8 79 20 127/70 96 Room Air 08/20/17 21:43 36.5 70 19 119/57 99 08/20/17 21:06 70 19 119/57 Room Air Review Cardiovascular: regular rate, rhythm Lungs: lungs clear Pre-Sedation Airway Assessment Smoking Status: Never Smoker Hx of Sleep Apnea: No Short Thick Neck: No Thyro-mental Distance: > 3 Finger Breadths Oral Cavity: WNL Mallampati Classification: Class II ASA Classification: Class III NPO Status Date of Last Intake of Fluids: Aug 20, 2017 Time of Last Intake of Fluids: 2358 Date of Last Intake of Solids: Aug 20, 2017 Time of Last Intake of Solids: 2358 Procedure Planning Contraindications for Sedation: None Current Medications Reviewed: Yes Notes The planned sedation has been discussed with the patient. Informed Consent was obtained. I have identified the patient, determined the appropriateness of sedation and have assessed the patient immediately prior to the procedure. All medicine(s) and interventions are by my order.
[2017-08-21] MEDS ORDERED: MIDAZOLAM HCL 1 MG/ML 2ML VIAL ONE (08:41)
[2017-08-21] MEDS ORDERED: HEPARIN SOD (PORCINE) 5000 UNIT/ML 1 ML VIAL ONE (08:41)
[2017-08-21] MEDS ORDERED: FENTANYL CITRATE INJ 50 MCG/1 ML 2 ML VIAL ONE (08:41)
[2017-08-21] MEDS ORDERED: CEFAZOLIN IV 2,000 MG in DEXTROSE 5% 50ML 50 ML IV SCH (08:45)
[2017-08-21] MEDS: CALCIUM CARBONATE 1250MG TAB PO SCH (09:00)
[2017-08-21] MEDS ORDERED: EPOETIN ALFA 10,000 UNITS/ML VIAL IV. SCH (09:00)
[2017-08-21] MEDS: AMLODIPINE BESYLATE 5 MG TAB PO SCH (09:00)
[2017-08-21] MEDS ORDERED: MYCOPHENOLATE MOFETIL 250 MG CAP (CELLCEPT) PO SCH (09:00)
[2017-08-21] MEDS ORDERED: MIDAZOLAM HCL 1 MG/ML 2ML VIAL IV ONE (09:00)
[2017-08-21] MEDS: CHOLECALCIFEROL 1000 INTER.UNIT TAB PO SCH (09:00)
[2017-08-21] MEDS: PANTOprazole SOD 40 MG TAB PO SCH (09:00)
[2017-08-21] MEDS: LOSARTAN POTASSIUM 50 MG TAB PO SCH ×2 (09:00→20:03)
[2017-08-21] MEDS ORDERED: FENTANYL CITRATE INJ 50 MCG/1 ML 2 ML VIAL IV ONE (09:01)
[2017-08-21] MEDS ORDERED: OXYCODONE/ACETAMINOPHEN 5-325 TAB PO PRN (09:15)
[2017-08-21] MEDS ORDERED: LIDOCAINE HCL 1% 20 ML VIAL INJ ONE (09:20)
[2017-08-21] MEDS ORDERED: HEPARIN SOD (PORCINE) 5000 UNIT/ML 1 ML VIAL IV ONE (09:20)
--- NOTE | 2017-08-21 09:28 | Post Sedation Assessment ---
Post Sedation Assessment General Date of Sedation Aug 21, 2017. Vital Signs: Vital Signs Past 12 Hours Date Time Temp Pulse Resp B/P (MAP) Pulse Ox O2 Delivery O2 Flow Rate FiO2 08/21/17 09:15 66 20 100 Oxymask 4 08/21/17 09:10 65 20 100 Oxymask 4 08/21/17 09:05 66 20 100 Oxymask 4 08/21/17 09:00 69 20 133/63 100 Oxymask 4 08/21/17 07:56 36.7 79 16 127/56 (79) 95 Room Air 08/21/17 04:00 Room Air 08/21/17 03:59 37.3 77 18 132/75 (94) 98 Room Air 08/21/17 00:00 Room Air 08/21/17 00:00 37.0 69 18 107/62 (77) 97 Room Air 08/20/17 22:11 36.8 79 20 127/70 96 Room Air 08/20/17 21:43 36.5 70 19 119/57 99 Post Procedure Recovery Score Activity: (2) Moves 4 extremities * Respiration: (2) Deep breath/cough Circulation: (2) +/-20% PreAnes Value Consciousness: (2) Fully Awake Oxygen Saturation: (1) O2 needed for >90% Post Anesthesia Score: 9 Discharge Sedation Level of Care: Fast Track Phase II Post Sedation Plan On clinical assessment, the patient appears to have tolerated the sedation without complications. Patient is recovering as anticipated. Patient will continue to be monitored by nursing and may be discharged when sedation discharge criteria are met per below protocol. Upon Completions of procedure and additional 15 minutes continue every 5 minute vital signs and the P.A.R. score; then discharge to a Phase I or Fast Track to Phase II per the following guidelines: * Discharge Patient to appropriate Phase II area if PAR is 8 or greater or return to pre- procedure baseline. The post - procedure orders will be as directed. * If PAR score is less than 8 or not return to pre-procedure baseline then patient will follow Phase I monitoring till PAR is reached for Phase II. The Phase I may be done in procedure room or may call to secure a Phase I area. * If naloxone or flumazenil are used for reversal, hold in Phase I for an additional 60 -120 minutes before discharge to Phase II. Please call the Sedation Physician to re-evaluate and complete post-note for discharge to Phase II area. Do NOT discharge from procedure sedation or Phase 1 until post- sedation evaluation note is complete by procedure /sedation MD Sedation Discharge Instructions to be given to the patient at discharge to home.
--- NOTE | 2017-08-21 09:28 | [facility] Post Operative Brief Note ---
Immediate Operative Summary Operative Date Aug 21, 2017. Pre-Operative Diagnosis End stage renal disease Post-Operative Diagnosis End stage renal disease Procedure(s) Performed Insertion of Perm Catheter, Right Jugular Approach Ultrasound Localization of Right Jugular Vein Fluoroscopy for Poistioning Moderate Sedation [id number] Surgeon Santos Construction Carpenters Helper Surgeon(s) Umm Estimated Blood Loss 1 Findings Consistent with Post-Op Diagnosis Specimens None Drains None Anesthesia Type IV Sedat Cons RN Only Complication(s) none Disposition Accompanied Pt To Recover: no Disposition:
--- NOTE | 2017-08-21 11:05 | DIAGNOSTIC IMAGING REPORT ---
DATE OF PROCEDURE: 08/21/2017 PREOPERATIVE DIAGNOSIS: End-stage renal disease. POSTOPERATIVE DIAGNOSIS: End-stage renal disease. PROCEDURE: Ultrasound-guided right internal jugular access, placement of tunneled right internal jugular PermCath for hemodialysis, fluoroscopy for positioning, monitored sedation for 25 minutes. SURGEON: Dr. Kurtis Graham. PRODUCT MANAGEMENT INTERNSHIP: Dr. Alaina Salomon. ANESTHESIA: Monitored sedation plus local. ESTIMATED BLOOD LOSS: 1 mL. COMPLICATIONS: None. INDICATIONS: Mrs. Nicolasa Hays is a 62-year-old woman who developed worsening kidney function. She is recommended to begin hemodialysis. For this reason, she is recommended to undergo placement of a right tunneled IJ PermCath. Risks, benefits, and alternatives were discussed with the patient. She consented to the procedure. DESCRIPTION OF PROCEDURE: The patient was taken to the endovascular suite and placed in supine position. Right neck and chest were prepped and draped in the usual sterile fashion. Safety timeout was performed in the patient, procedure, and sidedness were correctly identified. Local anesthesia was used to anesthetize the skin overlying the right IJ. Ultrasound was again used to identify the IJ, and it was accessed with an 18-gauge access needle under ultrasound guidance. Guidewire easily passed through the needle and down into the IVC. Local anesthesia was used to anesthetize the skin in the right infraclavicular chest. An 11 blade was used to create a 1 cm skin incision at the IJ access site in several fingerbreadths below the right clavicle. Catheter was tunneled from the infraclavicular incision to the IJ access incision. Dilator was passed over the guidewire and removed. A peelaway sheath was passed over the wire and the wire and dilator removed. The catheter was introduced into the peelaway sheath, and the peelaway sheath was removed. Fluoroscopy was used to confirm positioning of the catheter within the SVC at the atriocaval junction. Catheter easily aspirated dark venous blood and was flushed. 1.6 mL of heparin was instilled into each port. The catheter was sutured to the chest wall with nylon suture. A 4-0 Vicryl was used to close the IJ access site. Dermabond skin glue was applied to the IJ access site. A sterile dressing was applied. The patient tolerated the procedure well, and there were no immediate complications. She was transferred to the recovery area in stable condition. Dr. Kurtis Graham was present for the entire procedure.
--- NOTE | 2017-08-21 12:45 | NEPHROLOGY CONSULTATION ---
DATE OF CONSULTATION: 08/21/2017 ATTENDING OF RECORD: Miriam Bedoya DO. REASON FOR CONSULTATION: CKD stage V. HISTORY OF PRESENT ILLNESS: This is a 62-year-old female with CKD stage V with nephrotic range proteinuria secondary to C3 glomerulonephropathy who was being treated with CellCept. Patient has continued to progressively worsen in terms of symptoms with extreme fatigue, nausea, vomiting, 15 pound weight loss, very cold. notified my office, and I recommended that the patient come to the Emergency Room for further evaluation. The patient was admitted last night. She is currently n.p.o. for a tunneled dialysis catheter this morning. The patient was interested in doing peritoneal dialysis, which we will consider eventually transitioning over to PD as an outpatient. PAST MEDICAL/SURGICAL HISTORY: C3 GN, CKD stage V, hypertension, MGUS, ACL repair. FAMILY HISTORY: Significant for heart disease and brain and prostate cancer. SOCIAL HISTORY: No smoking, no alcohol, no drugs. She is and lives with . CURRENT MEDICATIONS: Norvasc 10 mg a day, atenolol 25 mg a day, vitamin D 2000 units a day, Cozaar 50 mg p.o. b.i.d., CellCept 1 g p.o. b.i.d., calcium carbonate 1250 mg daily, Protonix 40 mg a day, and normal saline at 80 mL an hour. REVIEW OF SYSTEMS: Positive fatigue. Positive weight loss. Positive nausea and vomiting. No chest pain, no shortness of breath, no diarrhea or constipation, no dysuria or hematuria. No itching. All other review of systems otherwise negative. PHYSICAL EXAMINATION: VITAL SIGNS: Temperature is 36.7, pulse 79, respiratory rate 16, blood pressure 127/56, saturating 95% on room air. GENERAL: Awake, alert, oriented x3. EYES: No scleral icterus. ENT: Moist mucous membranes. NECK: Supple. PULMONARY: Clear to auscultation. CARDIAC: Regular rate and rhythm. ABDOMEN: Bowel sounds positive, soft, nontender. EXTREMITIES: No clubbing, cyanosis, or edema. NEUROLOGICAL: Nonfocal. DERMATOLOGIC: No rash or ulcers noted. LABORATORY DATA: INR is 1. Sodium level is 141, potassium 4.7, chloride is 117, bicarbonate 17, BUN is 49, creatinine is 3.46, down from 52 and 3.77, glucose 86, calcium is 8, phosphorus 4.4, magnesium is 1.8. Albumin is 3. White count 7.7, H&H 8.9 and 27, platelet count is 239. Hepatitis C negative. UA with 4+ protein, 3+ blood, moderate leukocyte esterase, greater than 30 WBCs. C. difficile negative. Stool cultures are pending. IMPRESSION AND PLAN: Chronic kidney disease stage V. The patient's GFR is around 12 and experiencing significant uremic symptoms, and I feel mitchell to initiate hemodialysis at this time. For a tunneled dialysis catheter, will go for a short 2 hour dialysis treatment today while we try to set up outpatient dialysis. Will eventually transition over to peritoneal dialysis; however, given her constellation of symptoms, I feel more prudent course is to start hemodialysis at this time. I do not feel that she would last off dialysis while awaiting the PD catheter to mature given that she is significantly uremic at this time. I do not feel worthwhile to continue the CellCept. We will stop CellCept given the fact that now she is on hemodialysis and feel that the risks outweigh the benefits. I appreciate the consultation.
[2017-08-21] MEDS: ACETAMINOPHEN 325 MG TAB PO PRN ×2 (15:21→20:05)
--- NOTE | 2017-08-21 18:06 | Progress Note ---
Medicine Progress Note Date & Time of Visit: Aug 21, 2017 at 18:06. Subjective Patient reports feeling well, only has a little soreness of her right chest from the tunnel-cath placement earlier today. No overnight events noted. Tolerating PO. Is anxious about starting dialysis. Family at the bedside were updated. No other complaints at this time. Objective Last 8 Hrs Date Time Temp Pulse Resp B/P (MAP) Pulse Ox O2 Delivery O2 Flow Rate FiO2 08/21/17 16:00 Room Air 08/21/17 15:33 36.7 77 18 119/62 (81) 99 Nasal Cannula 08/21/17 14:55 37.2 79 158/83 (108) 08/21/17 14:54 72 160/82 08/21/17 14:30 64 143/74 08/21/17 14:00 74 131/71 08/21/17 13:30 73 138/77 08/21/17 13:08 69 142/72 08/21/17 13:00 36.5 73 149/84 (105) 08/21/17 12:54 69 142/72 08/21/17 12:03 36.8 73 16 137/77 (97) 98 08/21/17 10:45 72 16 136/75 (95) 97 Room Air 08/21/17 10:15 77 16 130/77 (94) 99 Room Air Physical Exam: GENERAL: Patient is in no acute distress. HEENT: No acute trauma, normocephalic, mucous membranes moist, no nasal congestion, no scleral icterus. NECK: No stridor, trachea is midline. LUNGS: Clear to auscultation bilaterally, no wheeze, no rhonchi, breath sounds equal. HEART: Without murmurs gallops or rubs, regular rate and rhythm. Right chest wall dialysis catheter ABDOMEN: Soft, nontender, bowel sounds positive EXTREMITIES: No cyanosis or edema, moving all 4 extremities without pain or difficulty NEUROLOGIC: Oriented x 3, no acute motor or sensory deficits, no focal weakness. SKIN: No rash, no jaundice, no diaphoresis. Laboratory Results: Last 24 Hours Test 08/20/17 19:38 08/20/17 23:25 08/21/17 01:40 08/21/17 06:50 Prothrombin Time 10.3 SECONDS Prothromb Time International Ratio 1.0 Urine Color YELLOW Urine Appearance CLOUDY Urine pH 5.0 Urine Specific [place] 1.019 Urine Protein 4+ Urine Glucose (UA) NEG Urine Ketones NEG Urine Occult Blood 3+ Urine Nitrite NEG Urine Bilirubin NEG Urine Urobilinogen NEG Urine Leukocyte Esterase MODERATE Urine WBC (Auto) >30 /hpf Urine RBC (Auto) >30 /hpf Urine Hyaline Casts (Auto) 5-10 /lpf Urine Epithelial Cells (Auto) >30 /lpf Urine Bacteria (Auto) NEG Urine Renal Epithelial Cells /lpf Urine Pathogenic Casts 5-10 WBC CASTS /lpf White Blood Count 7.78 K/uL Red Blood Count 3.23 M/uL Hemoglobin 8.9 g/dL Hematocrit 27.0 % Mean Corpuscular Volume 83.6 fL Mean Corpuscular Hemoglobin 27.6 pg Mean Corpuscular Hemoglobin Concent 33.0 g/dl RDW Standard Deviation 43.6 fL RDW Coefficient of Variation 14.4 % Platelet Count 239 K/uL Mean Platelet Volume 10.0 fL Sodium Level 141 mmol/L Potassium Level 4.7 mmol/L Chloride Level 117 mmol/L Carbon Dioxide Level 17 mmol/L Anion Gap 8.0 mmol/L Blood Urea Nitrogen 49 mg/dl Creatinine 3.46 mg/dl Est Creatinine Clear Calc Drug Dose 18.6 ml/min Estimated GFR () 15.5 Estimated GFR (Non- 13.4 BUN/Creatinine Ratio 14.2 Random Glucose 86 mg/dl Calcium Level 8.0 mg/dl Phosphorus Level 4.4 mg/dl Magnesium Level 1.8 mg/dl Date/Time Source Procedure Growth Status 08/20/17 23:25 Stool C.difficile Toxin B Gene (PCR) - Final No C. difficile toxin B gene detected Complete 08/20/17 23:25 Stool Shiga Toxin Test Pending Received 08/20/17 23:25 Stool Stool Culture Pending Received Assessment & Plan CKD STAGE IV: -secondary to C3GN, current GFR is 12 -progressed to ESRD requiring initiation of HD -Nephrology consulted, appreciate recommendations, started dialysis today after Vascular surgery placed a tunnelled catheter -Mycophenolate mofetil stopped per Nephro CHRONIC ANEMIA: secondary to CKD -continue Procrit per outpatient nephrology plan METABOLIC ACIDOSIS: -likely secondary to renal failure but could also be worse from diarrhea DIARRHEA: -stool studies were ordered, c diff negative -not appearing clinically dehydrated at this time HTN: -controlled -continue atenolol, amlodipine, losartan. Current Inpatient Medications: Current Inpatient Medications Medications (Trade) Dose Ordered Sig/Darrell Route Start Time Stop Time Status Last Admin Dose Admin Heparin Sodium (Porcine) (Heparin Sq 5000 Unit/0.5ml) 5,000 unit Q8H SQ 08/21/17 06:00 09/20/17 05:59 Acetaminophen (Tylenol Tab) 650 mg Q4H PRN PO 08/20/17 21:15 09/19/17 21:14 08/21/17 15:21 650 MG Ondansetron HCl (Zofran Inj) 4 mg Q6H PRN IV 08/20/17 21:15 09/19/17 21:14 Amlodipine Besylate (Norvasc Tab) 10 mg DAILY PO 08/21/17 09:00 09/20/17 08:59 Atenolol (Tenormin Tab) 25 mg DAILY PO 08/21/17 09:00 09/20/17 08:59 Cholecalciferol (Vitamin D Tab) 2,000 inter.unit QAM PO 08/21/17 09:00 09/20/17 08:59 Losartan Potassium (coZAAR TAB) 50 mg BID PO 08/21/17 09:00 09/20/17 08:59 Calcium Carbonate (oS-Corwin 500 TAB) 1,250 mg QAM PO 08/21/17 09:00 09/20/17 08:59 Pantoprazole Sodium (Protonix Tab) 40 mg QAM PO 08/21/17 09:00 09/20/17 08:59 Epoetin Rogerio (Procrit Inj) 10,000 units 0900 IV. 08/21/17 09:00 08/21/17 21:00 Oxycodone/ Acetaminophen (Percocet 5-325mg Tab) FOR MODERATE PAIN ... Q4H PRN PO 08/21/17 09:15 09/04/17 09:14
[2017-08-22] VITALS (7 sets, daily range): BP systolic 106–122; BP diastolic 64–75; PULSE 63–86; TEMP 36.3–37.6; O2SAT 93–98
[2017-08-22] MEDS: HEPARIN SOD 5000 UNIT/0.5 ML CARP SQ SCH ×3 (06:00→20:37)
[2017-08-22] MEDS ORDERED: EPOETIN ALFA 10,000 UNITS/ML VIAL IV. SCH (08:00)
--- NOTE | 2017-08-22 08:05 | Nephrology Progress Note ---
Nephrology Progress Note Date of Service: Aug 22, 2017. Subjective 62 yo female seen for esrd. had tunneled line placed yesterday and first dialysis treatment. went well. pt actually already starting to feel better. Objective Date Time Temp Pulse Resp B/P (MAP) Pulse Ox O2 Delivery O2 Flow Rate FiO2 08/22/17 07:18 37.6 75 16 118/64 (82) 94 Room Air 08/22/17 04:00 Room Air 08/22/17 03:44 37.1 74 16 122/68 (86) 96 08/22/17 00:04 37.3 86 16 122/71 (88) 97 Room Air 08/22/17 00:01 Room Air 08/21/17 20:00 Room Air 08/21/17 19:08 37.2 75 20 120/67 (84) 96 Room Air 08/21/17 16:00 Room Air 08/21/17 15:33 36.7 77 18 119/62 (81) 99 Nasal Cannula 08/21/17 14:55 37.2 79 158/83 (108) 08/21/17 14:54 72 160/82 08/21/17 14:30 64 143/74 08/21/17 14:00 74 131/71 08/21/17 13:30 73 138/77 08/21/17 13:08 69 142/72 08/21/17 13:00 36.5 73 149/84 (105) 08/21/17 12:54 69 142/72 08/21/17 12:03 36.8 73 16 137/77 (97) 98 08/21/17 10:45 72 16 136/75 (95) 97 Room Air 08/21/17 10:15 77 16 130/77 (94) 99 Room Air 08/21/17 09:45 97 Room Air 08/21/17 09:45 36.7 73 18 124/69 (87) 97 Room Air 08/21/17 09:45 97 Room Air 08/21/17 09:35 66 16 119/96 98 Room Air 08/21/17 09:30 76 16 125/61 99 Room Air 08/21/17 09:25 67 16 129/54 100 Oxymask 4 08/21/17 09:20 66 20 120/63 100 Oxymask 4 08/21/17 09:15 66 20 100 Oxymask 4 08/21/17 09:10 65 20 100 Oxymask 4 08/21/17 09:05 66 20 100 Oxymask 4 08/21/17 09:00 69 20 133/63 100 Oxymask 4 Physical Exam: General-aaox3 Eyes-no scleral icterus ENT-mmm Neck-supple Lungs-cta Heart-rrr Abdomen-bs+ s/nt/nd Extremities-no c/c/e Neuro-nonfocal Current Inpatient Medications Medications (Trade) Dose Ordered Sig/Darrell Route Start Time Stop Time Status Last Admin Dose Admin Heparin Sodium (Porcine) (Heparin Sq 5000 Unit/0.5ml) 5,000 unit Q8H SQ 08/21/17 06:00 09/20/17 05:59 Acetaminophen (Tylenol Tab) 650 mg Q4H PRN PO 08/20/17 21:15 09/19/17 21:14 08/21/17 20:05 650 MG Ondansetron HCl (Zofran Inj) 4 mg Q6H PRN IV 08/20/17 21:15 09/19/17 21:14 Amlodipine Besylate (Norvasc Tab) 10 mg DAILY PO 08/21/17 09:00 09/20/17 08:59 Atenolol (Tenormin Tab) 25 mg DAILY PO 08/21/17 09:00 09/20/17 08:59 Cholecalciferol (Vitamin D Tab) 2,000 inter.unit QAM PO 08/21/17 09:00 09/20/17 08:59 Losartan Potassium (coZAAR TAB) 50 mg BID PO 08/21/17 09:00 09/20/17 08:59 08/21/17 20:03 50 MG Calcium Carbonate (oS-Corwin 500 TAB) 1,250 mg QAM PO 08/21/17 09:00 09/20/17 08:59 Pantoprazole Sodium (Protonix Tab) 40 mg QAM PO 08/21/17 09:00 09/20/17 08:59 Oxycodone/ Acetaminophen (Percocet 5-325mg Tab) FOR MODERATE PAIN ... Q4H PRN PO 08/21/17 09:15 09/04/17 09:14 Last 24 Hours Test 08/22/17 07:42 Assessment & Plan ESRD-had dialysis yesterday and plan for dialysis again today. no fluid removal. just for clearance. catheter working well. Anemia of renal failure-hg levels dropped yesterday. on procrit.
[2017-08-22] MEDS: CALCIUM CARBONATE 1250MG TAB PO SCH (08:08)
[2017-08-22] MEDS: LOSARTAN POTASSIUM 50 MG TAB PO SCH ×2 (08:08→20:36)
[2017-08-22] MEDS: CHOLECALCIFEROL 1000 INTER.UNIT TAB PO SCH (08:08)
[2017-08-22] MEDS: PANTOprazole SOD 40 MG TAB PO SCH ×2 (08:09→08:26)
[2017-08-22] MEDS: AMLODIPINE BESYLATE 5 MG TAB PO SCH (08:09)
--- NOTE | 2017-08-22 12:04 | DIAGNOSTIC IMAGING REPORT ---
CHEST ONE VIEW PORTABLE CLINICAL HISTORY: Follow up of catheter tube position COMPARISON STUDY: No previous studies for comparison. FINDINGS: Right-sided PermCath placed in the superior vena cava. No evidence for pneumothorax. Lungs are grossly clear. Diaphragms smooth. IMPRESSION: PermCath placed in the superior vena cava. No evidence for pneumothorax. The above report was generated using voice recognition software. It may contain grammatical, syntax or spelling errors. Electronically signed by: Pacheco Hicks M.D. 08/22/2017 12:03 PM Dictated Date/Time: 08/22/2017 12:03 PM
--- NOTE | 2017-08-22 17:28 | Progress Note ---
Medicine Progress Note Date & Time of Visit: Aug 22, 2017 at 17:27. Subjective Patient feels well, she was asking about peritoneal dialysis and whether it causes a great deal of increase in abdominal girth and if it would work better with her lifestyle as they occasionally travel and camp. No overnight events noted. No other complaints at this time. Tolerated dialysis yesterday without difficulty. at the bedside and updated. Objective Last 8 Hrs Date Time Temp Pulse Resp B/P (MAP) Pulse Ox O2 Delivery O2 Flow Rate FiO2 08/22/17 16:00 Room Air 08/22/17 15:04 36.3 63 18 113/73 (86) 98 Room Air 08/22/17 12:00 Room Air 08/22/17 11:42 36.8 68 16 109/68 (82) 97 Room Air Physical Exam: GENERAL: Patient is in no acute distress. HEENT: No acute trauma, normocephalic, mucous membranes moist, no nasal congestion, no scleral icterus. NECK: No stridor, trachea is midline. LUNGS: Clear to auscultation bilaterally, no wheeze, no rhonchi, breath sounds equal. HEART: Without murmurs gallops or rubs, regular rate and rhythm. Right chest wall dialysis catheter with bruising along the path ABDOMEN: Soft, nontender, bowel sounds positive EXTREMITIES: No cyanosis or edema, moving all 4 extremities without pain or difficulty NEUROLOGIC: Oriented x 3, no acute motor or sensory deficits, no focal weakness. SKIN: No rash, no jaundice, no diaphoresis. 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, current GFR is 12 -progressed to ESRD requiring initiation of HD -Nephrology consulted, appreciate recommendations, started dialysis yesterday after Vascular surgery placed a tunnelled catheter -Mycophenolate mofetil stopped per Nephro -patient to have a run of dialysis today with no fluid removal - consulted for arranging HD CHRONIC ANEMIA: secondary to CKD -continue Procrit per outpatient Nephrology plan -received procrit with dialysis METABOLIC ACIDOSIS: -likely secondary to renal failure but could also be worse from diarrhea DIARRHEA: -stool studies were negative, c diff negative -not appearing clinically dehydrated at this time -electrolytes normal range HTN: -controlled -continue atenolol, amlodipine, losartan. Current Inpatient Medications: Current Inpatient Medications Medications (Trade) Dose Ordered Sig/Darrell Route Start Time Stop Time Status Last Admin Dose Admin Heparin Sodium (Porcine) (Heparin Sq 5000 Unit/0.5ml) 5,000 unit Q8H SQ 08/21/17 06:00 09/20/17 05:59 Acetaminophen (Tylenol Tab) 650 mg Q4H PRN PO 08/20/17 21:15 09/19/17 21:14 08/21/17 20:05 650 MG Ondansetron HCl (Zofran Inj) 4 mg Q6H PRN IV 08/20/17 21:15 09/19/17 21:14 Atenolol (Tenormin Tab) 25 mg DAILY PO 08/21/17 09:00 09/20/17 08:59 08/22/17 08:08 25 MG Cholecalciferol (Vitamin D Tab) 2,000 inter.unit QAM PO 08/21/17 09:00 09/20/17 08:59 08/22/17 08:08 2,000 INTER.UNIT Losartan Potassium (coZAAR TAB) 50 mg BID PO 08/21/17 09:00 09/20/17 08:59 08/22/17 08:08 50 MG Calcium Carbonate (oS-Corwin 500 TAB) 1,250 mg QAM PO 08/21/17 09:00 09/20/17 08:59 08/22/17 08:08 1,250 MG Pantoprazole Sodium (Protonix Tab) 40 mg QAM PO 08/21/17 09:00 09/20/17 08:59 Oxycodone/ Acetaminophen (Percocet 5-325mg Tab) FOR MODERATE PAIN ... Q4H PRN PO 08/21/17 09:15 09/04/17 09:14 Epoetin Rogerio (Procrit Inj) 10,000 units TODAY@0800 IV. 08/22/17 08:00 08/22/17 23:59 Amlodipine Besylate (Norvasc Tab) 10 mg HS PO 08/22/17 21:00 09/20/17 08:59 UNV
[2017-08-22] MEDS ORDERED: AMLODIPINE BESYLATE 5 MG TAB PO SCH (21:00)
[2017-08-23] VITALS (14 sets, daily range): BP systolic 106–130; BP diastolic 54–84; PULSE 59–77; TEMP 36.7–37.4; O2SAT 95–97
[2017-08-23] MEDS: HEPARIN SOD 5000 UNIT/0.5 ML CARP SQ SCH ×2 (06:00→14:00)
[2017-08-23 07:41] LABS: HEMATOCRIT 28.6 % (37-47); HEMOGLOBIN 9.5 g/dL (12.0-16.0); MEAN CELL VOLUME 82.9 fL (80-100); MEAN CORPUSCULAR HEMOGLOBIN 27.5 pg (25-34); MEAN CORPUSCULAR HGB CONC 33.2 g/dl (32-36); MEAN PLATELET VOLUME 9.7 fL (7.4-10.4); PLATELET COUNT 221 K/uL (130-400); RED CELL DISTRIBUTION WIDTH CV 14.1 % (11.5-14.5); RED CELL DISTRIBUTION WIDTH SD 42.7 fL (36.4-46.3); WHITE BLOOD COUNT 7.27 K/uL (4.8-10.8)
[2017-08-23 08:13] LABS: CALCIUM 8.2 mg/dl (8.5-10.1); CREATININE 3.3 mg/dl (0.60-1.20)
[2017-08-23] MEDS: CALCIUM CARBONATE 1250MG TAB PO SCH (08:20)
[2017-08-23] MEDS: CHOLECALCIFEROL 1000 INTER.UNIT TAB PO SCH (08:20)
--- NOTE | 2017-08-23 15:24 | Dialysis Progress Note ---
Nephrology Dialysis Note Date of Service: Aug 23, 2017. Subjective 62 yo female seen for esrd. doing well. seen on dialysis. second treatment. catheter working well. has lots of questions and nurse helping answer them. Objective Date Time Temp Pulse Resp B/P (MAP) Pulse Ox O2 Delivery O2 Flow Rate FiO2 08/23/17 12:00 Room Air 08/23/17 11:30 37.4 68 18 113/70 (84) 97 Room Air 08/23/17 08:00 Room Air 08/23/17 07:24 36.8 73 18 119/73 (88) 97 Room Air 08/23/17 04:00 Room Air 08/23/17 03:43 36.7 77 20 106/69 (81) 95 Room Air 08/22/17 23:59 Room Air 08/22/17 23:51 37.1 69 20 106/65 (79) 97 Room Air 08/22/17 20:00 Room Air 08/22/17 19:33 37.1 68 18 114/75 (88) 97 Room Air 08/22/17 16:00 Room Air Physical Exam: General-aaox3 Eyes-no scleral icterus ENT-mmm Neck-supple Lungs-clear Heart-regular Abdomen-bs+ s/nt/nd Extremities-no c/c/e Neuro-nonfocal Current Inpatient Medications Medications (Trade) Dose Ordered Sig/Darrell Route Start Time Stop Time Status Last Admin Dose Admin Heparin Sodium (Porcine) (Heparin Sq 5000 Unit/0.5ml) 5,000 unit Q8H SQ 08/21/17 06:00 09/20/17 05:59 Acetaminophen (Tylenol Tab) 650 mg Q4H PRN PO 08/20/17 21:15 09/19/17 21:14 08/21/17 20:05 650 MG Ondansetron HCl (Zofran Inj) 4 mg Q6H PRN IV 08/20/17 21:15 09/19/17 21:14 Atenolol (Tenormin Tab) 25 mg DAILY PO 08/21/17 09:00 09/20/17 08:59 08/22/17 08:08 25 MG Cholecalciferol (Vitamin D Tab) 2,000 inter.unit QAM PO 08/21/17 09:00 09/20/17 08:59 08/23/17 08:20 2,000 INTER.UNIT Losartan Potassium (coZAAR TAB) 50 mg BID PO 08/21/17 09:00 09/20/17 08:59 08/22/17 20:36 50 MG Calcium Carbonate (oS-Corwin 500 TAB) 1,250 mg QAM PO 08/21/17 09:00 09/20/17 08:59 08/23/17 08:20 1,250 MG Pantoprazole Sodium (Protonix Tab) 40 mg QAM PO 08/21/17 09:00 09/20/17 08:59 Oxycodone/ Acetaminophen (Percocet 5-325mg Tab) FOR MODERATE PAIN ... Q4H PRN PO 08/21/17 09:15 09/04/17 09:14 Amlodipine Besylate (Norvasc Tab) 10 mg HS PO 08/22/17 21:00 09/20/17 08:59 08/22/17 20:37 10 MG Last 24 Hours Test 08/23/17 07:20 White Blood Count 7.27 K/uL Red Blood Count 3.45 M/uL Hemoglobin 9.5 g/dL Hematocrit 28.6 % Mean Corpuscular Volume 82.9 fL Mean Corpuscular Hemoglobin 27.5 pg Mean Corpuscular Hemoglobin Concent 33.2 g/dl RDW Standard Deviation 42.7 fL RDW Coefficient of Variation 14.1 % Platelet Count 221 K/uL Mean Platelet Volume 9.7 fL Sodium Level 137 mmol/L Potassium Level 4.0 mmol/L Chloride Level 107 mmol/L Carbon Dioxide Level 25 mmol/L Anion Gap 5.0 mmol/L Blood Urea Nitrogen 40 mg/dl Creatinine 3.30 mg/dl Est Creatinine Clear Calc Drug Dose 19.5 ml/min Estimated GFR () 16.4 Estimated GFR (Non- 14.1 BUN/Creatinine Ratio 12.2 Random Glucose 96 mg/dl Calcium Level 8.2 mg/dl Assessment & Plan ESRD-for second dialysis treatment today and seen on dialysis. tolerating it well. no fluid removal. 3k bath. dialyzing mostly for clearance of toxins. ok from renal perspective to go home tonight after dialysis and outpt dialysis unit should be calling her tomorrow for a chair time.
--- NOTE | 2017-08-23 17:58 | Discharge Instructions ---
Discharge Instructions Date of Service Aug 23, 2017. Admission Reason for Admission: Ckd (Chronic Kidney Disease) Discharge Discharge Diagnosis / Problem: Renal failure, initiation of dialysis Discharge Goals Goal(s): Therapeutic intervention Activity Recommendations Activity Limitations: as noted below Lifting Limitations: gradually increase as tolerated Exercise/Sports Limitations: gradually increase as tolerated . Instructions / Follow-Up Instructions / Follow-Up Please see Dr. Overton on August 28 at 1:15PM for hospital follow up Please continue with dialysis as per upcoming schedule (please expect to hear from [facility] tomorrow; their number is also included in the discharge paperwork) Current Hospital Diet Patient's current hospital diet: AHA Diet (Heart Healthy), Renal Diet Discharge Diet Recommended Diet: AHA Diet (Heart Healthy), Renal Diet Procedures Procedures Performed: Insertion of Perm Catheter, Right Jugular Approach Ultrasound Localization of Right Jugular Vein Fluoroscopy for Poistioning Moderate Sedation [id number] Pending Studies Studies pending at discharge: no Medical Emergencies . Who to Call and When: Medical Emergencies: If at any time you feel your situation is an emergency, please call 911 immediately. . Non-Emergent Contact Non-Emergency issues call your: Primary Care Provider, Grain Operator Call Non-Emergent contact if: you have a fever, your pain is worsening, wound has increased drainage, wound has increased redness, wound has increased pain, you have any medication questions . . "Provider Documentation" section prepared by Millicent Fuller. .
--- NOTE | 2017-08-23 18:06 | Discharge Summary ---
Discharge Summary Date of Service Aug 23, 2017. Discharge Summary Admission Date: Aug 20, 2017 at 21:37 Discharge Date: Aug 23, 2017 Discharge Disposition: Home Principal Diagnosis: CKD progression to ESRD with initiation of dialysis Procedures: Tunnel catheter diaylsis insertion Consultations: Nephrology, Vascular surgery Medication Reconciliation Continued Medications: Amlodipine (Norvasc) 5 Mg Tab 10 MG PO DAILY, TAB Atenolol (Tenormin) 25 Mg Tab 25 MG PO DAILY, TAB Calcium (Calcium) 500 Mg Tab 2 TAB PO QAM Cholecalciferol (Vitamin D3) 1,000 Inter.unit Tab 2 TAB PO QAM Epoetin Rogerio (Procrit) 10,000 Units Inj 1 DOSE SQ QOWEEK Losartan Potassium (Cozaar) 50 Mg Tab 50 MG PO BID, TAB Omeprazole (Omeprazole) 20 Mg Tab 1 TAB PO DAILY for 90 Days, #90 TAB 1 Refill Sodium Bicarbonate (Sodium Bicarbonate) 650 Mg Tab 2 TAB PO BID PRN for Discontinued Medications: Mycophenolate Mofetil (Cellcept) 500 Mg Tab 2 TAB PO BID, TAB 3 Refills Admission Information HPI (per Admitting provider): The patient is a 62-year-old female with CKD stage IV, 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 In the last month she reports dry heaving some occasional abdominal pain, and some low appetite which is persistent. She is tolerating p.o. In the last 2-3 days she reports no energy with significant fatigue frequent sleeping. Review of systems also reveals a dry cough that is chronic with postnasal drip. Patient denies using nasal steroids. For the last several weeks she reports 2 episodes of diarrhea daily that has not changed. She denies any fevers chills, chest pain or shortness of breath. She does report some cold intolerance. Her recommended she start Prilosec [id number] which she started at 20 mg daily. She is currently being evaluated by the transplant service for renal transplant. She was encouraged to present to the ER by her agronomy manager Dr. Chance jiang in preparation for starting dialysis. Physical Exam (per Admitting): General Appearance: WD/WN, no apparent distress Head: normocephalic, atraumatic Eyes: normal inspection, PERRL, sclerae normal, + pertinent finding (Mucous members moist) ENT: hearing grossly normal Neck: trachea midline Respiratory/Chest: lungs clear, normal breath sounds, no respiratory distress, no accessory muscle use Cardiovascular: regular rate, rhythm, no edema, no gallop, no JVD, no murmur , normal peripheral pulses Abdomen/GI: normal bowel sounds, non tender, soft Back: normal inspection Extremities/Musculoskelatal: normal inspection, no calf tenderness, normal capillary refill, no pedal edema, normal range of motion Neurologic/Psych: wood tank builder II-XII nml as tested, no motor/sensory deficits, alert , normal mood/affect, oriented x 3 Skin: normal color, warm/dry, no rash Hospital Course CKD STAGE IV: -secondary to C3GN, current GFR is 12 -progressed to ESRD requiring initiation of HD -Nephrology consulted, appreciate recommendations, started dialysis Sunday after Vascular surgery placed a tunnelled catheter -Mycophenolate mofetil stopped per Nephro -patient to have a run of dialysis today with no fluid removal - consulted for arranging HD, patient to receive a call from [facility] tomorrow ( Sunday) regarding chair time CHRONIC ANEMIA: secondary to CKD -continue Procrit per outpatient Nephrology plan -received procrit with dialysis -no bleeding noted METABOLIC ACIDOSIS: -likely secondary to renal failure but could also be worse from diarrhea DIARRHEA: -stool studies were negative, c diff negative -not appearing clinically dehydrated at this time -electrolytes normal range HTN: -controlled -continue atenolol, amlodipine, losartan. PHYSICAL EXAM: GENERAL: Patient is in no acute distress. HEENT: No acute trauma, normocephalic, mucous membranes moist, no nasal congestion, no scleral icterus. NECK: No stridor, trachea is midline. LUNGS: Clear to auscultation bilaterally, no wheeze, no rhonchi, breath sounds equal. HEART: Without murmurs gallops or rubs, regular rate and rhythm. Right chest wall tunnel cath present with ecchymosis, no erythema or drainage ABDOMEN: Soft, nontender, bowel sounds positive EXTREMITIES: No cyanosis or edema, moving all 4 extremities without pain or difficulty, no signs for acute trauma. NEUROLOGIC: Oriented x 3, no acute motor or sensory deficits, no focal weakness. SKIN: No rash, no jaundice, no diaphoresis. Total time spent on discharge = 35 This includes examination of the patient, discharge planning, medication reconciliation, and communication with other providers. Discharge Instructions 08/23/17 07:20 08/23/17 07:20 Test 08/23/17 07:20 Red Blood Count 3.45 M/uL (4.2-5.4) Mean Corpuscular Volume 82.9 fL (80-100) Mean Corpuscular Hemoglobin 27.5 pg (25-34) Mean Corpuscular Hemoglobin Concent 33.2 g/dl (32-36) RDW Standard Deviation 42.7 fL (36.4-46.3) RDW Coefficient of Variation 14.1 % (11.5-14.5) Mean Platelet Volume 9.7 fL (7.4-10.4) Anion Gap 5.0 mmol/L (3-11) Est Creatinine Clear Calc Drug Dose 19.5 ml/min Estimated GFR () 16.4 Estimated GFR (Non- 14.1 BUN/Creatinine Ratio 12.2 (10-20) Calcium Level 8.2 mg/dl (8.5-10.1)
== END 2017-08-23 18:39 | disposition home or self-care (01) | DRG 674 ==
LOC: C.EDB 18:52 → ENRESERV 21:34 → C.2T 21:37
PROVIDERS: ADMIT Hospitalist; ATTEND Internal Medicine
PROC: 0JH63XZ Insertion of Tunneled Vascular Access Device into Chest Subcutaneous Tissue and Fascia, Percutaneous Approach (ICD-10-PCS; principal; 2017-08-21 09:45)
PROC: 06H033Z Insertion of Infusion Device into Inferior Vena Cava, Percutaneous Approach (ICD-10-PCS; principal; 2017-08-21 09:45)
PROC: 5A1D70Z Performance of Urinary Filtration, Intermittent, Less than 6 Hours Per Day (ICD-10-PCS; 2017-08-23)
DX: N18.6 End stage renal disease (principal); E87.2 Acidosis; I12.0 Hypertensive chronic kidney disease with stage 5 chronic kidney disease or end stage renal disease; D47.2 Monoclonal gammopathy; D63.1 Anemia in chronic kidney disease; Z82.49 Family history of ischemic heart disease and other diseases of the circulatory system; Z80.8 Family history of malignant neoplasm of other organs or systems

== ENCOUNTER → 2017-09-06 | Day surgery (SDC) | payer BC ==
[2017-09-05 17:35] VITALS: BMI 29.0
[~2017-09-06] VITALS: Ht 170.2 cm; Wt 87.5 kg
[~2017-09-06] MED LIST changes: +AMLO-110 PO; -ATEN-173 PO; +CEFAZOLIN 1000MG IV PUSH 7.5 ML IV SCH; +CEFAZOLIN 2000MG IV PUSH 15 ML IV SCH; +CEFAZOLIN SOD 2000MG/15 ML IV PUSH ONE; +D5W AND 1/4NSS 1000 ML IV SCH; +FENTANYL CITRATE INJ 50 MCG/1 ML 2 ML VIAL IV ONE; +FENTANYL CITRATE INJ 50 MCG/1 ML 2 ML VIAL ONE; +HEPARIN SOD (PORCINE) 5000 UNIT/ML 1 ML VIAL ONE; +HEPARIN SOD (PORCINE) 5000 UNIT/ML 1 ML VIAL SQ ONE; +LIDOCAINE HCL 1% 20 ML VIAL SQ ONE; -LOSA50TA6 PO; +MIDAZOLAM HCL 1 MG/ML 2ML VIAL IV ONE; +MIDAZOLAM HCL 1 MG/ML 2ML VIAL ONE; -MYCO500T4 PO; -SODI650T8 PO; +SULF1TAB92 PO
--- NOTE | 2017-09-06 09:37 | History and Physical ---
History & Physical Date of Service September 06, 2017. History & Physical Chief Complaint Malfunctioning permcath History of Present Illness The patient is a 62 year old female who required dialysis for worsening kidney function. She had a permcath placed which is not functioning well at this time. She is here for an exchange of her permcath. Allergies Coded Allergies: NO KNOWN DRUG ALLERGIES (Verified Allergy, Unknown, ., 06/21/17) Home Medications Scheduled Amlodipine (Norvasc), 10 MG PO DAILY Atenolol (Tenormin), 25 MG PO DAILY Calcium (Calcium), 2 TAB PO QAM Cholecalciferol (Vitamin D3), 2 TAB PO QAM Epoetin Rogerio (Procrit), 1 DOSE SQ QOWEEK Losartan Potassium (Cozaar), 50 MG PO BID Mycophenolate Mofetil (Cellcept), 2 TAB PO BID Omeprazole (Omeprazole), 1 TAB PO DAILY Scheduled PRN Sodium Bicarbonate (Sodium Bicarbonate), 2 TAB PO BID PRN for Problem List Medical Problems: (1) C3 glomerulonephritis (2) CKD (chronic kidney disease) (3) CKD (chronic kidney disease), stage IV (4) HTN (hypertension) (5) MGUS (monoclonal gammopathy of unknown significance) (6) Sinusitis Surgical Problems: (1) S/P ACL repair (2) S/P hemorrhoidectomy Surgical / Medical History Hx Cardiac Surgery: No Hx Abdominal Surgery: No Hx Cancer Surgery: No Hx Thoracic Surgery: No Hx Orthopedic: Yes (RT ACL RECONSTRUCTION) Hx Urinary Tract Surgery: Yes (KIDNEY BIOPSY) HX Other Surgery: No Family History Autoimmune hepatitis MOTHER Cancer of unknown primary origin FATHER FH: CAD (coronary artery disease) BROTHER FH: brain cancer BROTHER FH: prostate cancer BROTHER Social History Smoking Status: Never Smoker Hx Substance Use -Type & Amnt: No Review of Systems Constitutional: No chills, No diaphoresis, No fever, No malaise, No weakness, No weight gain, No weight loss, No sweats, No fatigue, No problem reported Respiratory: No cough, No cyanosis, No DANIEL, No hemoptysis, No orthopnea, No PND , No short of breath, No sputum production, No stridor, No wheezing, No dyspnea , No problem reported Cardiovascular: No chest pain, No chest tightness, No chest pressure, No palpitations, No syncope, No diaphoresis, No edema, No intermittent claudication , No orthopnea, No cyanosis, No mumur, No lightheadedness, No paroxysmal nocturnal dyspnea, No problem reported Gastrointestinal: No abdominal pain, No constipation, No diarrhea, No nausea, No vomiting, No anorexia, No appetite changes, No belching, No flatulence, No food intolerance, No hematemesis, No hemorrhoids, No hematochezia, No stool changes, No heartburn, No indigestion, No dysphagia, No rectal bleeding, No problem reported Musculoskeletal: No back pain, No gout, No joint pain, No joint swelling, No muscle pain, No muscle stiffness, No muscle weakness, No neck pain, No problem reported Neurologic: No dizziness, No weakness, No headache, No lethargy, No numbness, No paresthesia, No pre-existing deficit, No seizures, No tics, No tingling, No tremors, No vertigo, No memory loss, No LOC, No problem reported Psychiatric: + anxiety, No alcohol abuse, No auditory hallucinations, No depression, No drug abuse, No homicidal ideation, No mood changes, No suicidal ideation, No visual hallucinations, No problem reported Physical Exam Constitutional: General Apperance: heathly-appearing, well-nourished, well-developed Level of Distress: NAD Ambulation: ambulating normally Lungs: Auscultation: breath sounds normal Cardiovascular: Heart Auscultation: RRR Peripheral Pulses: Pulses: full and equal Abdomen: Inspection & Palpation: soft Extremities: Upper Right: no cyanosis, no edema, no varicosities, no palpable cord, no clubbing, no ulcers, no mottling Upper Left: no cyanosis, no edema, no palpable cord, no clubbing, no ulcers , no mottling Lower Right: no cyanosis, no edema, no varicosities, no palpable cord, no clubbing, no ulcers, no mottling Lower Left: no cyanosis, no edema, no varicosities, no palpable cord, no clubbing, no ulcers, no mottling Neurologic: Cranial Nerves: grossly intact Assessment and Plan Imp: Malfunctioning permcath Plan: Patient for an exchange of her permcath. I have discussed the risks options and benefits of the procedure with the patient. The patient understands the risks options and benefits and agrees to the procedure.
[2017-09-06 10:59] VITALS: BP 151/76; PULSE 90; TEMP 36.9; O2SAT 100; Ht 170.2 cm; Wt 87.5 kg
--- NOTE | 2017-09-06 12:11 | History & Physical Bridge Note ---
H&P Re-Evaluation Bridge Note: I have examined the patient, reviewed the History & Physical and in the interval since the performance of the History & Physical I have noted the following changes of clinical significance: No changes noted
--- NOTE | 2017-09-06 12:12 | Pre Sedation Assessment ---
Pre Sedation Assessment General Date of Sedation: September 06, 2017. Vital Signs Past 12 Hours Date Time Temp Pulse Resp B/P (MAP) Pulse Ox O2 Delivery O2 Flow Rate FiO2 09/06/17 10:59 36.9 90 18 151/76 (101) 100 Room Air Pre-Sedation Airway Assessment Smoking Status: Never Smoker Hx of Sleep Apnea: No Short Thick Neck: No Thyro-mental Distance: > 3 Finger Breadths Oral Cavity: Capped Teeth Mallampati Classification: Class II ASA Classification: Class III NPO Status Date of Last Intake of Fluids: September 05, 2017 Time of Last Intake of Fluids: 2199 Date of Last Intake of Solids: September 05, 2017 Time of Last Intake of Solids: 1999 Procedure Planning Contraindications for Sedation: None Current Medications Reviewed: Yes Notes The planned sedation has been discussed with the patient. Informed Consent was obtained. I have identified the patient, determined the appropriateness of sedation and have assessed the patient immediately prior to the procedure. All medicine(s) and interventions are by my order.
--- NOTE | 2017-09-06 12:50 | [facility] Operative Report ---
Operative Report Operative Date September 06, 2017. Pre-Operative Diagnosis Malfunctioning Perm Catheter Post-Operative Diagnosis Malfunctioning Perm Catheter Procedure(s) Performed Exchange of Perm Catheter, Moderate sedation from 1238 - [address] Graham Agronomy Supervisor Surgeon(s) None Estimated Blood Loss 0 Findings Tip of PermCath in distal superior vena cava, good blood return was found. Specimens Explant: Perm catheter Drains None Anesthesia Type IV Sedat Cons RN Only Complication(s) none Disposition no Indications The patient is a 62-year-old female with a right internal jugular vein PermCath in place. It is not running well at all. Exchange was recommended. I have discussed the risks options and benefits of the procedure with the patient. The patient understands the risks options and benefits and agrees to the procedure. Description of Procedure Patient was takent to the angio suite and placed in the supine position. The right side of the neck, catheter and chest wall were prepped and draped in a sterile manner. Local anesthesia was then administered to the appropriate areas. A guidewire was then passed centrally under fluoroscopic imaging through the old permcath. The old permcath was removed after freeing up the dacron cuff of the permcath using blunt and sharp dissection. A new []cm permcath was inserted without difficulty. The catheter was sutured in placed. Both ports aspirated and flushed easily and were then packed with heparin. A sterile dressing was applied to the catheter. The patient left the angio suite in good condition and tolerated the procedure well. I attest to the content of the Intraoperative Record and any orders documented therein. Any exceptions are noted below.
--- NOTE | 2017-09-06 12:53 | Post Sedation Assessment ---
Post Sedation Assessment General Date of Sedation September 06, 2017. Vital Signs: Vital Signs Past 12 Hours Date Time Temp Pulse Resp B/P (MAP) Pulse Ox O2 Delivery O2 Flow Rate FiO2 09/06/17 10:59 36.9 90 18 151/76 (101) 100 Room Air Post Procedure Recovery Score Activity: (2) Moves 4 extremities * Respiration: (2) Deep breath/cough Circulation: (2) +/-20% PreAnes Value Consciousness: (1) Arouseable (by name) Oxygen Saturation: (1) O2 needed for >90% Post Anesthesia Score: 8 Discharge Sedation Level of Care: Fast Track Phase II Post Sedation Plan On clinical assessment, the patient appears to have tolerated the sedation without complications. Patient is recovering as anticipated. Patient will continue to be monitored by nursing and may be discharged when sedation discharge criteria are met per below protocol. Upon Completions of procedure and additional 15 minutes continue every 5 minute vital signs and the P.A.R. score; then discharge to a Phase I or Fast Track to Phase II per the following guidelines: * Discharge Patient to appropriate Phase II area if PAR is 8 or greater or return to pre- procedure baseline. The post - procedure orders will be as directed. * If PAR score is less than 8 or not return to pre-procedure baseline then patient will follow Phase I monitoring till PAR is reached for Phase II. The Phase I may be done in procedure room or may call to secure a Phase I area. * If naloxone or flumazenil are used for reversal, hold in Phase I for an additional 60 -120 minutes before discharge to Phase II. Please call the Sedation Physician to re-evaluate and complete post-note for discharge to Phase II area. Do NOT discharge from procedure sedation or Phase 1 until post- sedation evaluation note is complete by procedure /sedation MD Sedation Discharge Instructions to be given to the patient at discharge to home.
--- NOTE | 2017-09-06 12:54 | Discharge Instructions ---
Discharge Instructions Date of Service September 06, 2017. Visit Reason for Visit: Malfunctioning Perm Cath Discharge Discharge Diagnosis / Problem: Malfunctioning permcath Discharge Goals Goal(s): Therapeutic intervention Activity Recommendations Activity Limitations: resume your previous activity Anesthesia . Post Anesthesia Instructions: If you have had General Anesthesia or IV Sedation: * Do not drive today. * Resume driving when surgeon permits. * Do not make important decisions or sign legal documents today. * Call surgeon for: 1. Temperature elevations greater than 101 degrees F. 2. Uncontrollable pain. 3. Excessive bleeding. 4. Persistent nausea and vomiting. 5. Medication intolerance (nausea, vomiting or rash). * For nausea and vomiting use only clear liquids such as: tea, soda, bouillon until nausea subsides, then gradually increase diet as tolerated. * If you have any concerns or questions, call your surgeon's office. If physician is unavailable and it is an emergency, call 911 or go to the nearest emergency room. . Instructions / Follow-Up Instructions / Follow-Up Call [phone] with any questions or concerns. May use permcath for dialysis. Take this with you to dialysis. SPECIAL CARE INSTRUCTIONS: Medications: * Continue to take your medications as directed. If you have been given a prescription for Plavix, please fill it immediately and take as directed. Incision Care: * Your puncture site may have some bruising and minor swelling for about one week. * You will have a small dressing covering your puncture site. You may remove the dressing after 24 hours and shower. You may let the warm soapy water run over it, but be sure to dry the puncture site well and keep it dry. * DO NOT IMMERSE THE INCISION IN A TUB/POOL/etc. UNTIL HEALED. * Puncture sites should be kept covered with a band-aid until it begins to heal. Restrictions: * Depending on whether you leg or arm was punctured to access the arteries, you will be required to lay flat, hold your arm still, or both, for about 4 hours after the procedure to prevent bleeding. * Limit your activity for the first 48 hours. You may walk and go up and down steps. Avoid excessive bending or movement at the puncture site. Possible Complications: * Excessive Swelling - after blood flow is improved you may notice increased swelling in the lower legs. This is a normal response. This usually depends on the amount of blockages in the leg, how long they have been there prior to your procedure and how much blood flow was restored. Elevating your legs will help to improve this. Please notify our office ([phone] ) if the swelling does not go away after lying in bed overnight. * Infection/Drainage/Bleeding - Drainage or bleeding from the puncture site should be minimal. If you have excessive bleeding or drainage, call our office ([phone]) right away. * Pain - You may experience some mild pain or soreness at your puncture site. If your pain does not improve, please contact our office ([phone]). Call your doctor and seek emergent treatment if you develop: * Temperature above 101 degrees * Any fever or chills * Any redness or purulent drainage from the puncture site * Any new dusky/blue colored toes or feet with coolness or sharp or aching pain. SKIN IRRITATION: * You may experience some redness and/or swelling in the area where radiation was administered. If any skin irritation occurs, please contact your family physician. FOLLOW UP VISIT: Keep any scheduled doctor appointments. Diet Recommendations Recommended Home Diet: resume previous diet Procedures Procedures Performed: Exchange of Perm Catheter, Moderate sedation from 1238 - 1246 Pending Studies Studies pending at discharge: no Medical Emergencies . Who to Call and When: Medical Emergencies: If at any time you feel your situation is an emergency, please call 911 immediately. . Non-Emergent Contact Non-Emergency issues call your: Surgeon . . "Provider Documentation" section prepared by Kurtis Graham. .
[2017-09-06 13:13] VITALS: BP 116/72; PULSE 78; TEMP 36.8; O2SAT 94
[2017-09-06 13:43] VITALS: BP 117/73; PULSE 70; TEMP 36.8; O2SAT 95
== END | disposition home or self-care (01) ==
LOC: C.ACU 10:19
PROVIDERS: ATTEND Surgery Vascular Surgery
DX: T85.618A Breakdown (mechanical) of other specified internal prosthetic devices, implants and grafts, initial encounter (principal); Y82.8 Other medical devices associated with adverse incidents; N18.4 Chronic kidney disease, stage 4 (severe); I12.9 Hypertensive chronic kidney disease with stage 1 through stage 4 chronic kidney disease, or unspecified chronic kidney disease; D47.2 Monoclonal gammopathy; Z82.49 Family history of ischemic heart disease and other diseases of the circulatory system

== ENCOUNTER 2022-02-14 14:52 | Inpatient (IN) ==
--- NOTE | 2022-02-14 15:43 | Emergency Department Note ---
Impression & Plan CKD (chronic kidney disease), stage IV, HTN (hypertension), Anemia, Renal transplant recipient, Lumbar compression fracture, Closed T12 fracture ED Provider Note NAME: ANTONIA SARAH AGE: 66 SEX: F : 1955 ARRIVES VIA: Walk-In INFORMANT: Patient, ED PROVIDER(S): Slim Bajwa MD Chief Complaint: Back pain, abnormal labs, outpatient referral HPI: Patient presents with some left-sided lower back pain as well as abnormal outpatient blood work that have been completed earlier today and was referred here for further evaluation and treatment. Patient was notified that her hemoglobin was low. Patient does have a history of a renal transplant with associated MGUS which is now multiple myeloma. The patient had presented for chemo today and had blood work completed which showed the abnormal lab findings. Patient does relate that she has had some lower back discomfort as well as left-sided which is been ongoing for the last several weeks. The patient denies any recent falls or trauma. Patient had started taking tramadol yesterday which did improve her symptoms. The patient denies any bright red blood per rectum or dark tarry stools. Patient denies any blood in the urine and believes that her urine output has been normal. ROS: See HPI for pertinent positives and negatives. A total of 10 systems were reviewed and otherwise negative. Past medical history: See below Surgical history: See below Social history: See below Physical Exam: GENERAL: NAD, wearing a mask, non-toxic. Wearing glasses. EYE EXAM: Normal conjunctiva. PERRL, no anisocoria and EOM's grossly intact w/o pain. NECK: Supple, no nuchal rigidity, no adenopathy, non-tender. No signs of meningismus. FROM of the neck with good chin to chest and neck extension. No stridor. LUNGS: Clear to auscultation. Normal chest wall mechanics. HEART: NSR, no MRG. ABDOMEN: Abdomen soft, non-tender, normo-active bowel sounds, no masses, no rebound or guarding. BACK: Lower midline lumbar and left-sided paraspinal discomfort. No obvious overlying skin changes. SKIN: No rashes and no bruising. UPPER EXTREMITIES: Upper extremities are grossly normal. LOWER EXTREMITIES: Grossly normal, no edema. Negative straight leg raise eusebia aterally no saddle anesthesia. NEURO EXAM: A&O x3, cranial nerves II-XII grossly intact, normal speech, moves all 4 extremities. Differential diagnoses: Infection, dehydration, metabolic abnormality, hypo/hyperglycemia, electrolyte disturbance, anemia, hypoxia, cardiac sources, intracerebral event, toxicologic, neurologic, as well as other pathologies. Course: Patient was seen and evaluated the bedside. Full history physical exam was performed. Imaging Studies: See Below Cardiac monitoring: An order was placed for continuous cardiac monitoring. The monitor shows a rate of 82 with sinus rhythm. MDM: Patient presented due to concern for abnormal blood work. Patient did have blood work completed and repeated. Patient did have a type and screen completed. I did speak with on-call oncology Dr. Eller stated the patient would be a candidate for irradiated products given her renal transplant. 2 units were ordered. The patient was consented. Patient did have a CT of the abdomen pelvis which did show acute pathologic fractures of T12-L1 L3 and L4. Trace right pleural effusion. There are lytic lesions likely consistent with the patient's multiple myeloma. Patient does have cyst within the left ovary as well as hypodense lesion in the body the pancreas. There is recommended follow-up for both these findings. I did convey this to the inpatient team. I did speak the on-call hospitalist Sera Farr PA-C the patient was to be admitted to Dr. Webb but after further discussion they were able to get in touch with the patient's transplant beer brewer that the patient may be better served at [facility]. I did speak with transplant surgery Dr. De Souza and randall bsequently with the triage physician Dr. Palmer who did accept the patient given the patient's electrolyte abnormalities kidney dysfunction and anemia; however, no current beds available at this time. I did convey this to the inpatient team and the patient was admitted to the medicine service by Dr. Murcia. Patient's creat was greater than 4 the patient states her baseline has been around that. The patient does have neutropenia. Critical Care: I have personally spent 42 minutes of critical care time in direct management of this patient. This includes bedside care, interpretation of diagnostic studies, and testing, discussion with consultants, patient, and family members, and other require inpatient management activities. This 42 minutes is in excess of all separately billable procedures. Past Med/Surg History Medical History C3 glomerulonephritis CKD (chronic kidney disease), stage IV HTN (hypertension) MGUS (monoclonal gammopathy of unknown significance) Multiple myeloma Surgical History S/P ACL repair S/P hemorrhoidectomy Social History Smoking Status: Never smoker Hx Alcohol Use: No Hx Substance Use: No Preferred Language: Luxembourgish Communication Ability: Effective Cloth Shader Required: No Beliefs That Will Affect Care: None Current Living Situation: Spouse Feels Safe at Home: Yes Safety Concerns: Feels Safe At This Time Assistive Devices: None Allergies Allergies Allergy/AdvReac Type Severity Reaction Status Date / Time No Known Allergies Allergy Verified 02/14/22 18:17 Home Meds Home Medications Medication Instructions Recorded Confirmed acyclovir 400 mg tablet 400 mg PO TID 02/14/22 02/14/22 allopurinol 300 mg tablet 150 mg PO QAM 02/14/22 02/14/22 amlodipine 5 mg tablet 5 mg PO QPM 02/14/22 02/14/22 aspirin 81 mg tablet,delayed 81 mg PO DAILY 02/14/22 02/14/22 release atorvastatin 40 mg tablet 40 mg PO QAM 02/14/22 02/14/22 carvedilol 12.5 mg tablet 12.5 mg PO BIDM 02/14/22 02/14/22 cyclophosphamide 50 mg capsule 650 mg PO WK 02/14/22 02/14/22 dexamethasone 4 mg tablet 40 mg PO WK 02/14/22 02/14/22 dulaglutide 3 mg/0.5 mL 3 mg subcut WK 02/14/22 02/14/22 subcutaneous pen injector (Trulicity) glipizide 10 mg tablet, extended 10 mg PO QAM 02/14/22 02/14/22 release 24 hr omeprazole 20 mg tablet,delayed 20 mg PO QAM 02/14/22 02/14/22 release ondansetron HCl 8 mg tablet 8 mg PO QAM 02/14/22 02/14/22 prednisone 5 mg tablet 5 mg PO DAILY 02/14/22 02/14/22 prochlorperazine maleate 10 mg 10 mg PO Q6H PRN NAUSEA/VOMITING 02/14/22 02/14/22 tablet tacrolimus 1 mg tablet,extended 2 mg PO QAM 02/14/22 02/14/22 release 24 hr (Envarsus XR) tramadol 50 mg tablet 50 mg PO Q6H PRN Pain 02/14/22 02/14/22 Results & Data (ED) Vital Signs Vital Signs - 24 hr 02/14/22 16:59 02/14/22 18:38 02/14/22 19:00 Pulse Rate 83 Pulse Rate from SpO2 Sensor 86 Respiratory Rate 15 Blood Pressure 172/98 H Blood Pressure Mean 122 Pulse Oximetry 97 98 Oxygen Delivery Method Room Air 02/14/22 19:00 02/14/22 19:30 02/14/22 19:30 Pulse Rate 85 86 Pulse Rate from SpO2 Sensor 83 87 Respiratory Rate 14 14 Blood Pressure 142/81 H Blood Pressure Mean 101 Pulse Oximetry 97 99 Oxygen Delivery Method 02/14/22 20:00 02/14/22 20:00 02/14/22 20:30 Pulse Rate 88 Pulse Rate from SpO2 Sensor 86 Respiratory Rate 14 Blood Pressure 144/81 H 138/79 Blood Pressure Mean 102 98 Pulse Oximetry 96 Oxygen Delivery Method 02/14/22 20:30 02/14/22 21:00 02/14/22 21:00 Pulse Rate 89 85 Pulse Rate from SpO2 Sensor 87 84 Respiratory Rate 14 22 Blood Pressure 153/74 H Blood Pressure Mean 100 Pulse Oximetry 95 99 Oxygen Delivery Method Home Medications Current Medication List: was personally reviewed by me Laboratory Data Attestation: I reviewed the patient's lab results. Result diagrams: 02/15/22 06:05 02/15/22 06:05 Lab Results 02/14/22 02/14/22 02/14/22 Range/Units 16:56 16:56 16:56 WBC 0.43 L* (4.8-10.8) K/ul RBC 2.11 L (3.93-5.22) M/uL Hgb 6.7 L* (12.0-16.0) g/dl Hct 18.4 L* (34.1-44.9) % MCV 87.2 (80.0-100.0) fL MCH 31.8 (25.0-34.0) pg MCHC 36.4 H (32.0-36.0) g/dL RDW Std Deviation 40.5 (36.4-46.3) fL RDW Coeff of [place] 12.9 (11.5-14.5) % Plt Count 134 (130-400) K/uL MPV 11.1 (9.4-12.3) fL Neutrophils % (Manual) 51 % Lymphocytes % (Manual) 31 % Monocytes % (Manual) 18 % Neutrophils # (Manual) 0.22 L (1.4-6.5) K/uL Total Absolute Neuts 0.22 L* (1.4-6.5) K/uL Lymphocytes # (Manual) 0.13 L (1.2-3.4) K/uL Total Abs Lymphocytes 0.13 L (1.2-3.4) K/uL Monocytes # (Manual) 0.08 L (0.24-0.82) K/uL Dohle Bodies 1+ PT 11.6 (9.0-12.0) Seconds INR 1.1 (0.9-1.1) Sodium 126 L (136-145) mmol/L Potassium 4.5 (3.5-5.1) mmol/L Chloride 97 L (98-107) mmol/L Carbon Dioxide 20 L (21-32) mmol/L Anion Gap 9 (3-11) BUN 53 H (6-23) mg/dl Creatinine 4.64 H* (0.6-1.2) mg/dl Est Cr Clr Drug Dosing 13.7 ml/min Est GFR ( Amer) 10.6 ml/min Est GFR (Non-Af Amer) 9.1 ml/min BUN/Creatinine Ratio 11.4 (10-20) Glucose 233 H (70-99(Fasting)) mg/dl Osmolality (280-300) mOsm/kg Calcium 9.5 (8.5-10.1) mg/dl Magnesium 1.2 L (1.7-2.4) mg/dl Total Bilirubin 0.6 (0.2-1.0) mg/dl AST 14 (13-39) U/L ALT 16 (7-52) U/L Alkaline Phosphatase 62 (34-104) U/L Total Protein 8.4 H (6.0-8.3) gm/dl Albumin 3.2 L (3.4-5.0) gm/dl Globulin 5.2 H (2.5-4.0) gm/dl Albumin/Globulin Ratio 0.6 L (0.9-2) TSH (0.300-4.500) uIu/ml Urine Color Urine Appearance (Clear) Urine pH (4.5-7.5) Ur Specific [place] (1.000-1.030) Urine Protein (Negative) Urine Glucose (UA) (Negative) Urine Ketones (Negative) Urine Blood (Negative) Urine Nitrite (Negative) Urine Bilirubin (Negative) Urine Urobilinogen (Negative) Ur Leukocyte Esterase (Negative) Urine WBC (Auto) (0-5) /hpf Urine RBC (Auto) (0-4) /hpf U Hyaline Cast (Auto) (0-5) /lpf U Epithel Cells (Auto) (0-5) /lpf Urine Bacteria (Auto) (Negative) Urine Osmolality (500-800) mOsm/kg Urine Sodium mmol/L Urine Potassium mmol/L Urine Chloride mmol/L SARS-CoV-2, RNA, NAAT (NEGATIVE) Blood Type Antibody Screen Crossmatch 02/14/22 02/14/22 02/14/22 Range/Units 16:56 17:01 18:15 WBC (4.8-10.8) K/ul RBC (3.93-5.22) M/uL Hgb (12.0-16.0) g/dl Hct (34.1-44.9) % MCV (80.0-100.0) fL MCH (25.0-34.0) pg MCHC (32.0-36.0) g/dL RDW Std Deviation (36.4-46.3) fL RDW Coeff of [place] (11.5-14.5) % Plt Count (130-400) K/uL MPV (9.4-12.3) fL Neutrophils % (Manual) % Lymphocytes % (Manual) % Monocytes % (Manual) % Neutrophils # (Manual) (1.4-6.5) K/uL Total Absolute Neuts (1.4-6.5) K/uL Lymphocytes # (Manual) (1.2-3.4) K/uL Total Abs Lymphocytes (1.2-3.4) K/uL Monocytes # (Manual) (0.24-0.82) K/uL Dohle Bodies PT (9.0-12.0) Seconds INR (0.9-1.1) Sodium (136-145) mmol/L Potassium (3.5-5.1) mmol/L Chloride (98-107) mmol/L Carbon Dioxide (21-32) mmol/L Anion Gap (3-11) BUN (6-23) mg/dl Creatinine (0.6-1.2) mg/dl Est Cr Clr Drug Dosing ml/min Est GFR ( Amer) ml/min Est GFR (Non-Af Amer) ml/min BUN/Creatinine Ratio (10-20) Glucose (70-99(Fasting)) mg/dl Osmolality (280-300) mOsm/kg Calcium (8.5-10.1) mg/dl Magnesium (1.7-2.4) mg/dl Total Bilirubin (0.2-1.0) mg/dl AST (13-39) U/L ALT (7-52) U/L Alkaline Phosphatase (34-104) U/L Total Protein (6.0-8.3) gm/dl Albumin (3.4-5.0) gm/dl Globulin (2.5-4.0) gm/dl Albumin/Globulin Ratio (0.9-2) TSH 3.541 (0.300-4.500) uIu/ml Urine Color Urine Appearance (Clear) Urine pH (4.5-7.5) Ur Specific [place] (1.000-1.030) Urine Protein (Negative) Urine Glucose (UA) (Negative) Urine Ketones (Negative) Urine Blood (Negative) Urine Nitrite (Negative) Urine Bilirubin (Negative) Urine Urobilinogen (Negative) Ur Leukocyte Esterase (Negative) Urine WBC (Auto) (0-5) /hpf Urine RBC (Auto) (0-4) /hpf U Hyaline Cast (Auto) (0-5) /lpf U Epithel Cells (Auto) (0-5) /lpf Urine Bacteria (Auto) (Negative) Urine Osmolality (500-800) mOsm/kg Urine Sodium mmol/L Urine Potassium mmol/L Urine Chloride mmol/L SARS-CoV-2, RNA, NAAT NEGATIVE (NEGATIVE) Blood Type A Positive Antibody Screen POSITIVE A Crossmatch See Detail 02/14/22 02/14/22 02/14/22 Range/Units 19:19 20:40 20:40 WBC (4.8-10.8) K/ul RBC (3.93-5.22) M/uL Hgb (12.0-16.0) g/dl Hct (34.1-44.9) % MCV (80.0-100.0) fL MCH (25.0-34.0) pg MCHC (32.0-36.0) g/dL RDW Std Deviation (36.4-46.3) fL RDW Coeff of [place] (11.5-14.5) % Plt Count (130-400) K/uL MPV (9.4-12.3) fL Neutrophils % (Manual) % Lymphocytes % (Manual) % Monocytes % (Manual) % Neutrophils # (Manual) (1.4-6.5) K/uL Total Absolute Neuts (1.4-6.5) K/uL Lymphocytes # (Manual) (1.2-3.4) K/uL Total Abs Lymphocytes (1.2-3.4) K/uL Monocytes # (Manual) (0.24-0.82) K/uL Dohle Bodies PT (9.0-12.0) Seconds INR (0.9-1.1) Sodium (136-145) mmol/L Potassium (3.5-5.1) mmol/L Chloride (98-107) mmol/L Carbon Dioxide (21-32) mmol/L Anion Gap (3-11) BUN (6-23) mg/dl Creatinine (0.6-1.2) mg/dl Est Cr Clr Drug Dosing ml/min Est GFR ( Amer) ml/min Est GFR (Non-Af Amer) ml/min BUN/Creatinine Ratio (10-20) Glucose (70-99(Fasting)) mg/dl Osmolality 290 (280-300) mOsm/kg Calcium (8.5-10.1) mg/dl Magnesium (1.7-2.4) mg/dl Total Bilirubin (0.2-1.0) mg/dl AST (13-39) U/L ALT (7-52) U/L Alkaline Phosphatase (34-104) U/L Total Protein (6.0-8.3) gm/dl Albumin (3.4-5.0) gm/dl Globulin (2.5-4.0) gm/dl Albumin/Globulin Ratio (0.9-2) TSH (0.300-4.500) uIu/ml Urine Color [place] Urine Appearance Cloudy A (Clear) Urine pH 5.0 (4.5-7.5) Ur Specific [place] 1.013 (1.000-1.030) Urine Protein 2+ H (Negative) Urine Glucose (UA) 1+ H (Negative) Urine Ketones Negative (Negative) Urine Blood 3+ H (Negative) Urine Nitrite Negative (Negative) Urine Bilirubin Negative (Negative) Urine Urobilinogen Negative (Negative) Ur Leukocyte Esterase Negative (Negative) Urine WBC (Auto) 1-5 (0-5) /hpf Urine RBC (Auto) >30 H (0-4) /hpf U Hyaline Cast (Auto) 1-5 (0-5) /lpf U Epithel Cells (Auto) 0-5 (0-5) /lpf Urine Bacteria (Auto) 2+ H (Negative) Urine Osmolality 338 L (500-800) mOsm/kg Urine Sodium mmol/L Urine Potassium mmol/L Urine Chloride mmol/L SARS-CoV-2, RNA, NAAT (NEGATIVE) Blood Type Antibody Screen Crossmatch 02/14/22 Range/Units 20:40 WBC (4.8-10.8) K/ul RBC (3.93-5.22) M/uL Hgb (12.0-16.0) g/dl Hct (34.1-44.9) % MCV (80.0-100.0) fL MCH (25.0-34.0) pg MCHC (32.0-36.0) g/dL RDW Std Deviation (36.4-46.3) fL RDW Coeff of [place] (11.5-14.5) % Plt Count (130-400) K/uL MPV (9.4-12.3) fL Neutrophils % (Manual) % Lymphocytes % (Manual) % Monocytes % (Manual) % Neutrophils # (Manual) (1.4-6.5) K/uL Total Absolute Neuts (1.4-6.5) K/uL Lymphocytes # (Manual) (1.2-3.4) K/uL Total Abs Lymphocytes (1.2-3.4) K/uL Monocytes # (Manual) (0.24-0.82) K/uL Dohle Bodies PT (9.0-12.0) Seconds INR (0.9-1.1) Sodium (136-145) mmol/L Potassium (3.5-5.1) mmol/L Chloride (98-107) mmol/L Carbon Dioxide (21-32) mmol/L Anion Gap (3-11) BUN (6-23) mg/dl Creatinine (0.6-1.2) mg/dl Est Cr Clr Drug Dosing ml/min Est GFR ( Amer) ml/min Est GFR (Non-Af Amer) ml/min BUN/Creatinine Ratio (10-20) Glucose (70-99(Fasting)) mg/dl Osmolality (280-300) mOsm/kg Calcium (8.5-10.1) mg/dl Magnesium (1.7-2.4) mg/dl Total Bilirubin (0.2-1.0) mg/dl AST (13-39) U/L ALT (7-52) U/L Alkaline Phosphatase (34-104) U/L Total Protein (6.0-8.3) gm/dl Albumin (3.4-5.0) gm/dl Globulin (2.5-4.0) gm/dl Albumin/Globulin Ratio (0.9-2) TSH (0.300-4.500) uIu/ml Urine Color Urine Appearance (Clear) Urine pH (4.5-7.5) Ur Specific [place] (1.000-1.030) Urine Protein (Negative) Urine Glucose (UA) (Negative) Urine Ketones (Negative) Urine Blood (Negative) Urine Nitrite (Negative) Urine Bilirubin (Negative) Urine Urobilinogen (Negative) Ur Leukocyte Esterase (Negative) Urine WBC (Auto) (0-5) /hpf Urine RBC (Auto) (0-4) /hpf U Hyaline Cast (Auto) (0-5) /lpf U Epithel Cells (Auto) (0-5) /lpf Urine Bacteria (Auto) (Negative) Urine Osmolality (500-800) mOsm/kg Urine Sodium 43 mmol/L Urine Potassium 28.8 mmol/L Urine Chloride 46 mmol/L SARS-CoV-2, RNA, NAAT (NEGATIVE) Blood Type Antibody Screen Crossmatch Administered Medications Acyclovir (Acyclovir 400 Mg Tab) 400 mg PO TID [facility] Stop: 03/17/22 08:59 Last Admin: 02/15/22 13:23 Dose: 400 mg Documented By: Admin: 02/15/22 08:19 Dose: 400 mg Documented By: AM Allopurinol (Allopurinol 300 Mg Tab) 150 mg PO QAM [facility] Stop: 03/17/22 08:59 Last Admin: 02/15/22 08:20 Dose: 150 mg Documented By: AM Aspirin (Aspirin 81 Mg Ectab) 81 mg PO DAILY [facility] Stop: 03/17/22 08:59 Last Admin: 02/15/22 08:23 Dose: 81 mg Documented By: AM Atorvastatin Calcium (Atorvastatin 40 Mg Tab) 40 mg PO QAM [facility] Stop: 03/17/22 08:59 Last Admin: 02/15/22 08:19 Dose: 40 mg Documented By: AM Carvedilol (Carvedilol 12.5 Mg Tab) 12.5 mg PO BIDM [facility] Stop: 03/17/22 07:59 Last Admin: 02/15/22 08:18 Dose: 12.5 mg Documented By: AM Cyclophosphamide (Cyclophosphamide 25 Mg Tab) 650 mg PO Mo@0900 [facility] Stop: 03/16/22 23:29 Last Admin: 02/15/22 01:05 Dose: 650 mg Documented By: Co-signed By: [facility] Dexamethasone (Dexamethasone 4 Mg Tab) 40 mg PO Mo@0900 [facility] Stop: 03/16/22 23:29 Last Admin: 02/15/22 01:03 Dose: 40 mg Documented By: Ceftriaxone Sodium 2,000 mg/ (Dextrose) 70 mls @ 100 mls/hr IV Q24H [facility]; Protocol Stop: 02/24/22 22:59 Last Infusion: 02/15/22 00:11 Dose: 0 mls/hr Documented By: Admin: 02/14/22 23:22 Dose: 100 mls/hr Documented By: Insulin Aspart (Insulin Aspart Per Unit) 0 units SC ACHS [facility] Stop: 03/17/22 11:29 Last Admin: 02/15/22 12:47 Dose: 12 units Documented By: AM Co-signed By: [facility] Pantoprazole Sodium (Pantoprazole 40 Mg Tab) 40 mg PO DAILY [facility] Stop: 03/17/22 08:59 Last Admin: 02/15/22 08:18 Dose: 40 mg Documented By: AM Prednisone (Prednisone 5 Mg Tab) 5 mg PO DAILY [facility] Stop: 03/17/22 08:59 Last Admin: 02/15/22 08:19 Dose: 5 mg Documented By: AM Tacrolimus (Tacrolimus 1 Mg Ertab (Patients Own Medication)) 2 mg PO QAM [place] Stop: 03/17/22 14:29 Last Admin: 02/15/22 14:46 Dose: 2 mg Documented By: AM Discontinued Medications Sodium Chloride (Nss) 500 mls @ 999 mls/hr IV .Q31M [place] Stop: 02/14/22 16:30 Last Infusion: 02/14/22 17:59 Dose: 0 mls/hr Documented By: AM(2) Admin: 02/14/22 16:54 Dose: 999 mls/hr Documented By: AM(2) Sodium Chloride (Nss 1000ml) 500 mls @ 999 mls/hr IV .Q31M ONE Stop: 02/14/22 18:37 Last Infusion: 02/14/22 18:52 Dose: 0 mls/hr Documented By: AM(2) Admin: 02/14/22 18:21 Dose: 999 mls/hr Documented By: AM(2) Magnesium Sulfate/Dextrose (Magnesium Sulfate / D5w) 1 gm in 100 mls @ 50 mls/hr IV ONE ONE Stop: 02/15/22 00:49 Last Infusion: 02/15/22 12:13 Dose: 0 mls/hr Documented By: Infusion: 02/15/22 01:10 Dose: 0 mls/hr Documented By: Admin: 02/14/22 23:22 Dose: 50 mls/hr Documented By: CAMRYN Insulin Human Regular 8 units/ (Syringe) 8 mls @ 30 mls/min IV NOW ONE Stop: 02/15/22 12:46 Last Admin: 02/15/22 12:48 Dose: 30 mls/min Documented By: AM Co-signed By: [facility] Insulin Aspart (Insulin Aspart Per Unit) 0 units SC Q6 [place] Stop: 03/16/22 22:59 Last Admin: 02/15/22 05:50 Dose: 5 units Documented By: Co-signed By: [facility] Admin: 02/14/22 23:23 Dose: Not Given Documented By: Insulin Glargine (Lantus Per Unit Charge) 6 units SQ BID [place] Stop: 11/18/22 08:59 Last Admin: 02/15/22 09:53 Dose: 6 units Documented By: AM Co-signed By: ADALBERTO Magnesium Oxide (Magnesium Oxide 400 Mg Tab) 800 mg PO NOW STA Stop: 02/14/22 18:08 Last Admin: 02/14/22 18:20 Dose: 800 mg Documented By: AM(2) Miscellaneous (Envarsus~Order Awaiting Action) 1 each N/A QS [place] Stop: 03/16/22 07:59 Last Admin: 02/15/22 08:20 Dose: Not Given Documented By: Admin: 02/15/22 00:10 Dose: Not Given Documented By: Admin: 02/14/22 23:51 Dose: Not Given Documented By: Admin: 02/14/22 23:51 Dose: Not Given Documented By: Imaging Data Radiologist's Impression: Abdomen/Pelvis CT 02/14/22 15:[address] WITHOUT CONTRAST CT DOSE: 580.13 mGy.cm HISTORY: single kidney/transplx, L LOW BACK PAIN, recent bone bx TECHNIQUE: Multiaxial CT images of the abdomen and pelvis were performed without contrast. A dose lowering technique was utilized adhering to the principles of ALARA. COMPARISON STUDY: None. FINDINGS: There is a trace right pleural effusion. No pneumoperitoneum. No pneumatosis. Multiple scattered lytic lesions seen throughout the visualized osseous structures consistent with the patient's history of multiple myeloma. There are acute mild superior endplate compression fractures at L1 and L3. There are acute burst-type fractures involving the T12 and L4 vertebral bodies demonstrating up to 30% loss of height centrally. These favor pathologic fractures. No significant retropulsion. Mild paravertebral edema noted at the fracture sites. The unenhanced liver, gallbladder, spleen, and adrenal glands are unremarkable. No retroperitoneal lymphadenopathy. Normal caliber abdominal aorta. There are atrophic bilateral [place] kidneys. There is a 10 mm hypodense lesion within the body of the pancreas on image 88. No pelvic free fluid. The bladder is unremarkable. There is a 2 cm calcified uterine fibroid. There is a 3 .5 cm cyst within the left ovary containing punctate calcification. Suboptimal evaluation for bowel pathology due to the lack of intravenous and oral contrast. However, there is no definite bowel wall thickening or obstruction. Normal appendix. There is a right lower quadrant renal transplant. No hydronephrosis. IMPRESSION: 1. Acute pathologic fractures involving the T12, L1, L3, and L4 vertebral bodies as described above demonstrating mild to moderate loss of height. No associated retropulsion. 2. Trace right pleural effusion. 3. Multiple scattered lytic lesions seen throughout the visualized osseous structures consistent the patient's known history of multiple myeloma. 4. No bowel wall thickening or obstruction. 5. A 3.5 cm cyst within the left ovary containing a punctate calcification. This could be pathologic in a postmenopausal female. Consider follow-up pelvic ultrasound in 3-6 months to ensure resolution. 6. A 10 mm hypodense lesion within the body of the pancreas. This favors a cystic neoplasm such as a serous cystadenoma or side branch intraductal papillary mucinous neoplasm. One year follow-up can be performed to ensure stability. 7. A right lower quadrant renal transplant is noted. ACT 112: Negative or not required by law. Electronically signed by: Farhad Ferro M.D. 02/14/2022 4:56 PM Discharge Plan Visit Data Chief Complaint: Abnormal Labs/Diagnostic Testing Stated Complaint: REF BY , LOW BP, LOW BLOOD COUNTS ED Provider: Slim Bajwa Discharge Problem: CKD (chronic kidney disease), stage IV, HTN (hypertension), Anemia, Renal transplant recipient, Lumbar compression fracture, Closed T12 fracture Patient Disposition: Admitted As Inpatient Discharge Instructions Interventions: ED Discharge Assessment Last Done: 02/14/22 22:24
[2022-02-14] MEDS ORDERED: SODIUM CHLORIDE 0.9% 500 ML IV SCH (16:00)
--- NOTE | 2022-02-14 16:58 | CT Scan Report ---
ABDOMEN AND PELVIS CT WITHOUT CONTRAST CT DOSE: 580.13 mGy.cm HISTORY: single kidney/transplx, L LOW BACK PAIN, recent bone bx TECHNIQUE: Multiaxial CT images of the abdomen and pelvis were performed without contrast. A dose lo wering technique was utilized adhering to the principles of ALARA. COMPARISON STUDY: None. FINDINGS: There is a trace right pleural effusion. No pneumoperitoneum. No pneumatosis. Multiple scat tered lytic lesions seen throughout the visualized osseous structures consistent with the patient's h istory of multiple myeloma. There are acute mild superior endplate compression fractures at L1 and L3 . There are acute burst-type fractures involving the T12 and L4 vertebral bodies demonstrating up to 30% loss of height centrally. These favor pathologic fractures. No significant retropulsion. Mild par avertebral edema noted at the fracture sites. The unenhanced liver, gallbladder, spleen, and adrenal glands are unremarkable. No retroperitoneal lymphadenopathy. Normal caliber abdominal aorta. There ar e atrophic bilateral [place] kidneys. There is a 10 mm hypodense lesion within the body of the pancrea s on image 88. No pelvic free fluid. The bladder is unremarkable. There is a 2 cm calcified uterine f ibroid. There is a 3.5 cm cyst within the left ovary containing punctate calcification. Suboptimal ev aluation for bowel pathology due to the lack of intravenous and oral contrast. However, there is no d efinite bowel wall thickening or obstruction. Normal appendix. There is a right lower quadrant renal transplant. No hydronephrosis. IMPRESSION: 1. Acute pathologic fractures involving the T12, L1, L3, and L4 vertebral bodies as described above d emonstrating mild to moderate loss of height. No associated retropulsion. 2. Trace right pleural effusion. 3. Multiple scattered lytic lesions seen throughout the visualized osseous structures consistent the patient's known history of multiple myeloma. 4. No bowel wall thickening or obstruction. 5. A 3.5 cm cyst within the left ovary containing a punctate calcification. This could be pathologic in a postmenopausal female. Consider follow-up pelvic ultrasound in 3-6 months to ensure resolution. 6. A 10 mm hypodense lesion within the body of the pancreas. This favors a cystic neoplasm such as a serous cystadenoma or side branch intraductal papillary mucinous neoplasm. One year follow-up can be performed to ensure stability. 7. A right lower quadrant renal transplant is noted. ACT 112: Negative or not required by law. Electronically signed by: Farhad Ferro M.D. 02/14/2022 4:56 PM
[2022-02-14 17:28] LABS: INR 1.1 (0.9-1.1); Prothrombin Time 11.6 Seconds (9.0-12.0)
[2022-02-14 17:36] LABS: Mean Corpuscular Hemoglobin 31.8 pg (25.0-34.0); Mean Corpuscular Hgb Conc 36.4 g/dL (32.0-36.0); Mean Corpuscular Volume 87.2 fL (80.0-100.0); Mean Platelet Volume 11.1 fL (9.4-12.3); Platelet Count 134 K/uL (130-400); RDW Coefficient of Variation 12.9 % (11.5-14.5); RDW Standard Deviation 40.5 fL (36.4-46.3); Red Blood Count 2.11 M/uL (3.93-5.22)
[2022-02-14 17:41] LABS: Hematocrit (blood only) 18.4 % (34.1-44.9); Hemoglobin 6.7 g/dl (12.0-16.0); White Blood Count 0.43 K/ul (4.8-10.8)
[2022-02-14 17:42] LABS: ALC (manual) 0.13 K/uL (1.2-3.4); ANC (manual) 0.22 K/uL (1.4-6.5); Dohle Bodies 1+; Lymphocytes # (manual) 0.13 K/uL (1.2-3.4); Lymphocytes % (manual) 31 %; Monocytes # (manual) 0.08 K/uL (0.24-0.82); Monocytes % (manual) 18 %; Neutrophils # (manual) 0.22 K/uL (1.4-6.5); Neutrophils % (manual) 51 %
[2022-02-14 17:55] LABS: Albumin Globulin Ratio 0.6 (0.9-2); Albumin Level 3.2 gm/dl (3.4-5.0); BUN Creatinine Ratio 11.4 (10-20); Bilirubin,Total 0.6 mg/dl (0.2-1.0); Calcium 9.5 mg/dl (8.5-10.1); Creatinine Clr Calc Pharmacy 13.7 ml/min; Est GFR (African American) 10.6 ml/min; Est GFR (Non-African American) 9.1 ml/min; Globulin 5.2 gm/dl (2.5-4.0); Magnesium 1.2 mg/dl (1.7-2.4); Potassium 4.5 mmol/L (3.5-5.1); Total Protein 8.4 gm/dl (6.0-8.3)
[2022-02-14] MEDS ORDERED: SODIUM CHLORIDE 0.9% 250 ML IV PRN (17:55)
[2022-02-14] MEDS ORDERED: MAGNESIUM OXIDE 400 MG TAB PO STA (18:07)
[2022-02-14] MEDS ORDERED: SODIUM CHLORIDE 0.9% 1000ML 500 ML IV ONE (18:07)
[2022-02-14 21:17] LABS: Appearance Urine Cloudy (Clear); Bacteria Urine Automated 2+ (Negative); Bilirubin Urine Negative (Negative); Blood Urine 3+ (Negative); Color Urine Orange; Epithelial Cell Urine Auto 0-5 /lpf (0-5); Glucose Urine UA 1+ (Negative); Ketones Urine Negative (Negative); Leukocyte Esterase Urine Negative (Negative); Nitrite Urine Negative (Negative); Protein Urine 2+ (Negative); RBC Urine Automated >30 /hpf (0-4); Specific Gravity Urine 1.013 (1.000-1.030); Urobilinogen Urine Negative (Negative)
[2022-02-14 21:56] LABS: Urine Potassium 28.8 mmol/L
[2022-02-14] MEDS ORDERED: MAGNESIUM SULFATE / D5W 1 GM/100 ML BAG IV ONE (22:50)
[2022-02-14] MEDS ORDERED: POLYETHYLENE (MIRALAX) 17 GM PACK PO PRN (22:50)
[2022-02-14] MEDS ORDERED: PROCHLORPERAZINE MALEATE 10 MG TAB PO PRN (22:50)
[2022-02-14] MEDS ORDERED: ACETAMINOPHEN 325 MG TAB PO PRN (22:50)
[2022-02-14] MEDS ORDERED: traMADol HCL 50 MG TABLET PO PRN (22:50)
[2022-02-14] MEDS ORDERED: NITROGLYCERIN SL 0.4 MG/TAB TAB SL PRN (22:50)
[2022-02-14] MEDS ORDERED: ONDANSETRON INJ 2 MG/ML 2 ML VIAL IV PRN (22:50)
--- NOTE | 2022-02-14 22:50 | History and Physical Report ---
DATE OF ADMISSION: 02/14/2022 CHIEF COMPLAINT: Abnormal labs. HISTORY OF PRESENT ILLNESS: This is a 66-year-old female with past medical history significant for diabetes, hyperlipidemia, hypertension, history of nephrotic syndrome and diffuse mesangial proliferative glomerulonephritis, status post kidney transplant in 2019 at [place]. The patient was diagnosed with MGUS in 2014. Recently diagnosed with MGUS converted to multiple myeloma and is on chemotherapy since last 5 weeks, weekly chemotherapy. The patient was having back pain for last 3 weeks. The patient says she went to her heme-onc office for chemo today and her labs showed abnormal labs and she was advised to come to the ER. In the ER, her WBC was 0.43, hemoglobin 6.7. Her sodium was 126, BUN 53, creatinine 4.6, magnesium 1.2. ER talked to the transplant center at [place] where she was accepted for transfer, but there is no bed available, so we were called for admission. ER also ordered for PRBC transfusion. Nephrology team called from [place] and said no other treatment for tonight and they are okay to keep her here overnight. The patient is resting comfortably and hemodynamically stable. She was started on tramadol yesterday for back pain and the pain is better. She is ambulating okay. She is making urine, but it is dark color. Normal bowel movements, no blood in stool or black stools. No abdominal pain. No vomiting, she has some nausea sometimes. No chest pain, no shortness of breath, no difficulty swallowing. Appetite is okay. No headache, no blurred visions. Once in a while runny nose. No sore throat. No cough. Afebrile, hemodynamically stable in the ER. ALLERGIES: No known drug allergies. PAST MEDICAL HISTORY: As mentioned above. PAST SURGICAL HISTORY: Colonoscopy, cystoscopy, hemorrhoidectomy, renal transplant on the left side in 2019. MEDICATIONS: The patient is on acyclovir 400 mg p.o. t.i.d., allopurinol 750 mg p.o. a.m., amlodipine 5 mg p.o. p.m., aspirin 81 mg p.o. daily, atorvastatin 40 mg p.o. daily, Coreg 12.5 mg p.o. b.i.d., cyclophosphamide 650 mg p.o. weekly, dexamethasone 40 mg p.o. weekly, Trulicity 3 mg subcutaneous weekly, glipizide 10 mg p.o. a.m., omeprazole 20 mg p.o. a.m., Zofran 8 mg p.o. a.m. prior to chemo, prednisone 5 mg p.o. daily, prochlorperazine 10 mg p.o. q.6 hours p.r.n., tacrolimus 2 mg p.o. a.m., tramadol 50 mg p.o. q.6 hours p.r.n. FAMILY HISTORY: Significant for brother has chronic kidney disease; father has adenocarcinoma of unknown primary; brother has glioblastoma, diabetes, heart disorder, hypertension, MDS, prostate cancer; mother has autoimmune hepatitis. SOCIAL HISTORY: , no smoking, no alcohol, no drug use while used marijuana in the distant past. REVIEW OF SYSTEMS: As per HPI. Rest of the review of systems is negative. PHYSICAL EXAMINATION: GENERAL: The patient is of moderate build, not in acute distress. VITAL SIGNS: Temperature 36.6, pulse 88, respiratory rate 14, blood pressure 144/81, oxygen 96% on room air. HEENT: Pupils equal, round and reactive to light. Oral mucosa moist. NECK: No JVD, no neck masses. CARDIOVASCULAR: S1 and S2 heard. Regular rate and rhythm. No murmur, no gallop. RESPIRATORY SYSTEM: Normal AP diameter. No accessory muscle use. No wheezing, no crackles. ABDOMEN: Soft, bowel sounds present, nontender, no distention. CENTRAL NERVOUS SYSTEM: Alert and oriented. Speech is clear. No facial droop. Insight is good. Obeys simple commands. Moves extremities. EXTREMITIES: No edema, no erythema. LABORATORY DATA: WBC 0.4, hemoglobin 6.7, hematocrit 18.4, platelets 134. PT 11.6, INR 1.1. Sodium 126, potassium 4.5, [id number], CO2 of 20, BUN 53, creatinine 4.64, serum glucose 233, serum osmolality 290, calcium 9.5, magnesium 1.2, total bilirubin 0.6, AST 14, ALT 16, alkaline phosphatase 62. TSH 3.5. Urinalysis, +2 bacteria. SARS-CoV-2 rapid test negative. IMAGING: CT of abdomen and pelvis: Acute pathological fracture involving T2, L1, L3 and L4 vertebral bodies. No associated retropulsion. Trace right pleural effusion, multiple scattered lytic lesions seen throughout the visualized osseous structures consistent with the patient's known history of multiple myeloma. No bowel wall thickening or obstruction. A 3.5 cm cyst within the left ovary containing punctate calcification. This could be pathological in a postmenopausal female. Consider followup ultrasound in 3-6 months to ensure resolution. A 10 mm hypodense lesion within the body of the pancreas, this favors a cystic neoplasm such as serous cystadenoma or IPMN, 1- year followup is recommended. ASSESSMENT AND PLAN: This is a 66-year-old female who presents with abnormal laboratories with kidney transplant and multiple myeloma, presents with abnormal laboratories. 1. Abnormal laboratories, neutropenia, anemia, acute kidney injury and hyponatremia. The patient is on chemotherapy for multiple myeloma. She has kidney transplant for diffuse mesangial proliferative glomerulonephritis in 2019. She is on chemotherapy for the last 5 weeks for multiple myeloma. She was diagnosed with monoclonal gammopathy of undetermined significance in 2014 and recently diagnosed with multiple myeloma, not achieved remission. Plan was to transfer to [place]. There is no bed available tonight. Nephrology called us and said no further treatment required, they are okay to observe her overnight here in [facility]. Packed red blood cells were ordered by the Emergency Room, which will be given overnight and the nephrology is okay with that. Magnesium is 1.2; p.o. magnesium was given Emergency Room, we will give 1 mg of IV magnesium. Urine bacteria is 2+, we can give a dose of Rocephin while the patient is here until the cultures are available and closely monitor in telemetry floor. Follow the repeat laboratories in the a.m. 2. Diabetes. Hold glipizide and Trulicity, place on insulin sliding scale. 3. Hyperlipidemia, on a statin. 4. Hypertension, continue Coreg and amlodipine. We will monitor the blood pressure. 5. Pathological spine fractures, continue tramadol for now. The patient is going to be transferred to [place]. 6. Gastroesophageal reflux disease, continue omeprazole. 7. Hx of Renal transplant. ill continue transplant meds. Creatine is worsening. Management as per transplant team 8. Possible UTI Rocephin. Follow cultures. 9. Deep venous thrombosis prophylaxis. We will place her on sequential compression devices. DISPOSITION: Closely monitor in the tele floor. Await transfer to [place]. Level 1, full code. Job ID: [id number] [facility]
[2022-02-14] MEDS ORDERED: INSULIN ASPART PER UNIT SC SCH (23:00)
[2022-02-14] MEDS: cefTRIAXone SODIUM 2,000 MG in DEXTROSE 5% 50 ML IV SCH (23:22)
[2022-02-14] MEDS: INSULIN ASPART PER UNIT SC SCH (23:23)
[2022-02-14] MEDS ORDERED: CYCLOPHOSPHAMIDE 25 MG TAB PO SCH (23:30)
[2022-02-14] MEDS ORDERED: dexAMETHasone 4 MG TAB PO SCH (23:30)
[2022-02-15] MEDS: INSULIN ASPART PER UNIT SC SCH ×4 (05:50→19:59)
[2022-02-15 06:55] LABS: Calcium 9.4 mg/dl (8.5-10.1); Creatinine Clr Calc Pharmacy 15.2 ml/min; Est GFR (Non-African American) 10.3 ml/min; Magnesium 1.7 mg/dl (1.7-2.4); Potassium 4.6 mmol/L (3.5-5.1)
[2022-02-15 06:59] LABS: Hematocrit (blood only) 19.8 % (34.1-44.9); Hemoglobin 7.1 g/dl (12.0-16.0); Mean Corpuscular Hemoglobin 31.3 pg (25.0-34.0); Mean Corpuscular Hgb Conc 35.9 g/dL (32.0-36.0); Mean Corpuscular Volume 87.2 fL (80.0-100.0); Mean Platelet Volume 10.3 fL (9.4-12.3); Platelet Count 139 K/uL (130-400); RDW Coefficient of Variation 12.9 % (11.5-14.5); RDW Standard Deviation 39.4 fL (36.4-46.3); Red Blood Count 2.27 M/uL (3.93-5.22); White Blood Count 0.39 K/ul (4.8-10.8)
[2022-02-15 07:30] LABS: Estimated Average Glucose 272 mg/dl; Hemoglobin A1C 11.1 % (4.5-5.6)
[2022-02-15] MEDS: carvediloL 12.5 MG TAB PO SCH ×2 (08:18→17:32)
[2022-02-15] MEDS: PANTOprazole 40 MG TAB PO SCH (08:18)
[2022-02-15] MEDS: predniSONE 5 MG TAB PO SCH (08:19)
[2022-02-15] MEDS: ACYCLOVIR 400 MG TAB PO SCH ×3 (08:19→19:38)
[2022-02-15] MEDS: ATORVASTATIN 40 MG TAB PO SCH (08:19)
[2022-02-15] MEDS: allopurinoL 300 MG TAB PO SCH (08:20)
[2022-02-15] MEDS: ASPIRIN 81 MG ECTAB PO SCH (08:23)
[2022-02-15] MEDS ORDERED: CARBOHYDRATES FOR HYPOGLYCEMIA PO PRN (08:45)
[2022-02-15] MEDS ORDERED: GLUCOSE 40% GEL 15 GM TUBE PO PRN (08:45)
[2022-02-15] MEDS ORDERED: GLUCOSE 10 TAB/TUBE PO PRN (08:45)
[2022-02-15] MEDS ORDERED: GLUCAGON FOR INJ 1 MG VIAL IM PRN (08:45)
[2022-02-15] MEDS ORDERED: DEXTROSE 50% 50 ML SYRINGE IV PRN (08:45)
[2022-02-15] MEDS ORDERED: LANTUS PER UNIT CHARGE SQ SCH (09:00)
[2022-02-15] MEDS ORDERED: PHARMACY GLYCEMIC MGMT CONSULT PRN (12:16)
[2022-02-15] MEDS ORDERED: INSULIN HUMAN REGULAR PER UNIT 8 UNITS in SYRINGE 7.92 ML IV ONE ×2 (12:45→17:30)
[2022-02-15] MEDS: TACROLIMUS 1 MG PO SCH (14:46)
--- NOTE | 2022-02-15 15:16 | Pharmacy Report ---
Pharmacy Glycemic Short Note 2 - Date of Service February 15, 2022 - Glycemic Short BSG Results (Last 24 hours): 02/14/22 02/14/22 02/15/22 16:56 23:22 06:05 Glucose 233 H 245 H POC Glucose 73 02/15/22 02/15/22 02/15/22 08:15 12:01 12:02 Glucose POC Glucose 257 H 447 H* 459 H* OUTPATIENT ANTIDIABETIC REGIMEN: * Glipizide 10mg PO qAM * Trulicity 3mg SQ qWednesday * HbA1c: 11.1% (02/15/22) ASSESSMENT: * Ms Hays is a 66yo diabetic F admitted with SHANNON, anemia. * Pt received 40mg PO dexamethasone overnight, which she takes weekly with Cytoxan treatment. * BSGs have been markedly elevated today, likely steroid-induced hyperglycemia. * Pt was given an IV insulin bolus and Novolog parameters were tightened. Lantus increased for fasting BSG above goal. * Will continue to monitor and adjust as indicated. * Expect that glycemic control will improve as effects of DXM wear off over the next day or so. PLAN FOR INPATIENT GLYCEMIC CONTROL: * Hold outpatient oral diabetes medications * Basal insulin * Lantus 15 units SQ BID * Bolus insulin * NovoLog per scale ACHS or Q6hrs while NPO * Goal Range: Low 110 mg/dL - High 140 mg/dL * Correction Factor: 30 mg/dL/unit * Nutritional / Prandial insulin per carb ratio of 1 unit per 8 grams CHO consumed
[2022-02-15] MEDS: LANTUS PER UNIT CHARGE SQ SCH (17:05)
[2022-02-15] MEDS: amLODIPine BESYLATE 5 MG TAB PO SCH (19:38)
--- NOTE | 2022-02-15 19:53 | Hospitalist Progress Note ---
Date of Service February 15, 2022 Assessment & Plan (1) CKD (chronic kidney disease), stage IV: Plan: Patient is a 66 yr female who presents with abnormal laboratories with kidney transplant and multiple myeloma, presents with abnormal laboratories. Abnormal laboratories Neutropenia Anemia Likely due to multiple myeloma On chemotherapy for multiple myeloma Denies any bleeding issues Transfuse as needed Monitor CBC Neutropenic precautions Acute kidney injury Hyponatremia H/O Kidney transplant for diffuse mesangial proliferative glomerulonephritis in 2019 Monitor renal function Creatinine 4.18 today Avoid nephrotoxic agents as able Plan to be transition to [facility] for further care Hypomagnesemia Replete electrolytes as needed Suspected UTI Preliminary culture growing gram-negative bacilli Empirically started on Rocephin DM II Hold glipizide and Trulicity Continue Insulin Monitor BGs Hyperlipidemia on statin. Hypertension continue Coreg and amlodipine Pathological spine fractures CT :Acute pathologic fractures involving the T12, L1, L3, and L4 vertebral bodies as described above demonstrating mild to moderate loss of height. No associated retropulsion. Denies any pain Follow up as outpatient Left ovary Cyst Chronic as per patient CT:A 3.5 cm cyst within the left ovary containing a punctate calcification. This could be pathologic in a postmenopausal female. Consider follow-up pelvic ultrasound in 3-6 months to ensure resolution. Follow-up as outpatient Pancreatic lesion CT:A 10 mm hypodense lesion within the body of the pancreas. This favors a cystic neoplasm such as a serous cystadenoma or side branch intraductal papillary mucinous neoplasm. One year follow-up can be performed to ensure stability. Follow-up as outpatient GERD PPI H/O Renal transplant continue transplant meds Monitor renal function Plan to transfer to [facility] when bed available DVT Px: SCDs for now CODE STATUS Full code Disposition Tertiary care facility as able Admission and Anticipated Discharge Date Admission Date: February 14, 2022 Subjective Patient is seen and examined at bedside Offers no complaints today Discussed with patient's family at bedside Denies any chest pain, shortness breath, dizziness, nausea, abdominal pain, dysuria, hematuria Review of Systems Review of Systems: All systems reviewed & are unremarkable except as noted in Subjective Physical Exam Physical Exam: Physical Exam: Vitals signs as noted above General Appearance:Moderately built and nourished, no apparent distress Head: normocephalic, Atraumatic Eyes: normal inspection, EOMI Neck: supple, Trachea midline Respiratory/Chest: Normal breath sounds, CTA, No accessory muscle use Cardiovascular: S1, S2, No murmur Abdomen/GI:Soft, Non tender, Bowel sounds present Extremities/Musculoskeletal:normal inspection, no edema Neurologic/Psych:AAOX3, grossly no focal neurological deficits Skin: normal color, warm Results & Data Results & Data ([facility]) Vital Signs (Past 12 Hours) Vital Signs Temp Pulse Pulse Resp BP Pulse Ox O2 Del Method 02/15/22 19:30 36.8 C 101 H 18 134/80 96 Room Air 02/15/22 16:14 36.4 C L 95 H 18 144/77 H 97 Room Air 02/15/22 16:07 99 H 02/15/22 11:45 88 02/15/22 11:38 36.7 C 92 H 18 130/77 95 Room Air Laboratory Results Short CBC 02/15/22 Range/Units 06:05 WBC 0.39 L* (4.8-10.8) K/ul Hgb 7.1 L (12.0-16.0) g/dl Hct 19.8 L* (34.1-44.9) % Plt Count 139 (130-400) K/uL BMP 02/15/22 06:05 Sodium 127 L Potassium 4.6 Chloride 98 Carbon Dioxide 21 BUN 50 H Creatinine 4.18 H D Glucose 245 H Calcium 9.4 Urine 02/14/22 Range/Units 20:40 Urine Color [place] Urine Appearance Cloudy A (Clear) Urine pH 5.0 (4.5-7.5) Ur Specific [place] 1.013 (1.000-1.030) Urine Protein 2+ H (Negative) Urine Glucose (UA) 1+ H (Negative)
[2022-02-16] MEDS: INSULIN ASPART PER UNIT SC SCH ×6 (01:43→20:46)
[2022-02-16] MEDS: cefTRIAXone SODIUM 2,000 MG in DEXTROSE 5% 50 ML IV SCH (01:43)
[2022-02-16 07:27] LABS: Hematocrit (blood only) 24.4 % (34.1-44.9); Hemoglobin 8.9 g/dl (12.0-16.0); Mean Corpuscular Hemoglobin 30.6 pg (25.0-34.0); Mean Corpuscular Hgb Conc 36.5 g/dL (32.0-36.0); Mean Corpuscular Volume 83.8 fL (80.0-100.0); Mean Platelet Volume 10.6 fL (9.4-12.3); Platelet Count 123 K/uL (130-400); RDW Coefficient of Variation 12.7 % (11.5-14.5); RDW Standard Deviation 38.3 fL (36.4-46.3); Red Blood Count 2.91 M/uL (3.93-5.22); White Blood Count 0.99 K/ul (4.8-10.8)
[2022-02-16 08:01] LABS: ALC (manual) 0.08 K/uL (1.2-3.4); ANC (manual) 0.79 K/uL (1.4-6.5); Acanthocytes 1+; BUN Creatinine Ratio 14.6 (10-20); Calcium 9.9 mg/dl (8.5-10.1); Echinocytes 1+; Est GFR (African American) 11.8 ml/min; Est GFR (Non-African American) 10.2 ml/min; Lymphocytes # (manual) 0.08 K/uL (1.2-3.4); Lymphocytes % (manual) 8 %; Magnesium 1.6 mg/dl (1.7-2.4); Monocytes # (manual) 0.13 K/uL (0.24-0.82); Monocytes % (manual) 13 %; Neutrophils # (manual) 0.79 K/uL (1.4-6.5); Neutrophils % (manual) 80 %; Potassium 4.3 mmol/L (3.5-5.1)
[2022-02-16] MEDS: allopurinoL 300 MG TAB PO SCH (08:05)
[2022-02-16] MEDS: carvediloL 12.5 MG TAB PO SCH ×2 (08:05→17:24)
[2022-02-16] MEDS: ASPIRIN 81 MG ECTAB PO SCH (08:06)
[2022-02-16] MEDS: ATORVASTATIN 40 MG TAB PO SCH (08:06)
[2022-02-16] MEDS: PANTOprazole 40 MG TAB PO SCH (08:06)
[2022-02-16] MEDS: predniSONE 5 MG TAB PO SCH (08:06)
[2022-02-16] MEDS: ACYCLOVIR 400 MG TAB PO SCH ×3 (08:07→20:49)
[2022-02-16] MEDS: TACROLIMUS 1 MG PO SCH (08:07)
[2022-02-16] MEDS: LANTUS PER UNIT CHARGE SQ SCH ×2 (08:41→20:44)
[2022-02-16] MEDS ORDERED: MAGNESIUM SULFATE / D5W 1 GM/100 ML BAG IV ONE (09:47)
--- NOTE | 2022-02-16 16:18 | Hospitalist Progress Note ---
Date of Service February 16, 2022 Assessment & Plan (1) CKD (chronic kidney disease), stage IV: Plan: Patient is a 66 yr female who presents with abnormal laboratories with kidney transplant and multiple myeloma, presents with abnormal laboratories. Abnormal laboratories Neutropenia Anemia Likely due to multiple myeloma S/P 2 units PRBCs On chemotherapy for multiple myeloma Denies any bleeding issues Transfuse as needed Monitor CBC Neutropenic precautions Neutropenia slowly improving Hb 8.9 today Acute kidney injury Hyponatremia H/O Kidney transplant for diffuse mesangial proliferative glomerulonephritis in 2019 Monitor renal function Creatinine 4.2 today Avoid nephrotoxic agents as able Plan to be transition to [facility] for further care Hypomagnesemia Replete electrolytes as needed UTI--POA Urine Cx: E. coli Continue Rocephin DM II Hold glipizide and Trulicity Continue Insulin Monitor BGs Hyperlipidemia on statin. Hypertension continue Coreg and amlodipine Pathological spine fractures CT :Acute pathologic fractures involving the T12, L1, L3, and L4 vertebral bodies as described above demonstrating mild to moderate loss of height. No associated retropulsion. Denies any pain Follow up as outpatient Left ovary Cyst Chronic as per patient CT:A 3.5 cm cyst within the left ovary containing a punctate calcification. This could be pathologic in a postmenopausal female. Consider follow-up pelvic ultrasound in 3-6 months to ensure resolution. Follow-up as outpatient Pancreatic lesion CT:A 10 mm hypodense lesion within the body of the pancreas. This favors a cystic neoplasm such as a serous cystadenoma or side branch intraductal papillary mucinous neoplasm. One year follow-up can be performed to ensure stability. Follow-up as outpatient GERD PPI H/O Renal transplant continue transplant meds Monitor renal function Plan to transfer to [facility] when bed available DVT Px: SCDs for now CODE STATUS Full code Disposition Tertiary [facility] facility as able Admission and Anticipated Discharge Date Admission Date: February 14, 2022 Subjective Patient is seen and examined at bedside States having headache earlier today which improved with Tylenol Also reports nausea today No other complaints Denies any chest pain, shortness breath, dizziness, abdominal pain, dysuria, hematuria Waiting for transfer to [facility] Review of Systems Review of Systems: All systems reviewed & are unremarkable except as noted in Subjective Physical Exam Physical Exam: Physical Exam: Vitals signs as noted above General Appearance:Moderately built and nourished, no apparent distress Head: normocephalic, Atraumatic Eyes: normal inspection, EOMI Neck: supple, Trachea midline Respiratory/Chest: Normal breath sounds, CTA, No accessory muscle use Cardiovascular: S1, S2, No murmur Abdomen/GI:Soft, Non tender, Bowel sounds present Extremities/Musculoskeletal:normal inspection, no edema Neurologic/Psych:AAOX3, grossly no focal neurological deficits Skin: normal color, warm Results & Data Results & Data ([facility]) Vital Signs (Past 12 Hours) Vital Signs Temp Pulse Pulse Resp BP BP BP 02/16/22 15:23 36.7 C 88 18 146/82 H 02/16/22 11:46 96 H 02/16/22 11:45 36.7 C 90 18 164/91 H 02/16/22 10:18 150/92 H 02/16/22 07:19 36.9 C 98 H 18 148/82 H 02/16/22 04:43 92 H 02/16/22 05:47 36.8 C 105 H 20 169/90 H 02/16/22 05:08 36.8 C 94 H 2 L 174/97 H Pulse Ox O2 Del Method 02/16/22 15:23 97 Room Air 02/16/22 11:46 02/16/22 11:45 97 Room Air 02/16/22 10:18 02/16/22 07:19 96 Room Air 02/16/22 04:43 02/16/22 05:47 96 02/16/22 05:08 96 Laboratory Results Short CBC 02/16/22 Range/Units 06:54 WBC 0.99 L* (4.8-10.8) K/ul Hgb 8.9 L (12.0-16.0) g/dl Hct 24.4 L (34.1-44.9) % Plt Count 123 L (130-400) K/uL BMP 02/16/22 06:54 Sodium 130 L Potassium 4.3 Chloride 101 Carbon Dioxide 18 L BUN 62 H Creatinine 4.24 H Glucose 196 H Calcium 9.9
--- NOTE | 2022-02-16 18:05 | Discharge Summary ---
Date of Service February 16, 2022 Admission HPI Per Admitting Provider CHIEF COMPLAINT: Abnormal labs. HISTORY OF PRESENT ILLNESS: This is a 66-year-old female with past medical history significant for diabetes, hyperlipidemia, hypertension, history of nephrotic syndrome and diffuse mesangial proliferative glomerulonephritis, status post kidney transplant in 2019 at [facility]. The patient was diagnosed with MGUS in 2014. Recently diagnosed with MGUS converted to multiple myeloma a nd is on chemotherapy since last 5 weeks, weekly chemotherapy. The patient was having back pain for last 3 weeks. The patient says she went to her heme-onc office for chemo today and her labs showed abnormal labs and she was advised to come to the ER. In the ER, her WBC was 0.43, hemoglobin 6.7. Her sodium was 126, BUN 53, creatinine 4.6, magnesium 1.2. ER talked to the transplant center at [facility] where she was accepted for transfer, but there is no bed available, so we were called for admission. ER also ordered for PRBC transfusion. Nephrology team called from [facility] and said no other treatment for tonight and they are okay to keep her here overnight. The patient is resting comfortably and hemodynamically stable. She was started on tramadol yesterday for back pain and the pain is better. She is ambulating okay. She is making urine, but it is dark color. Normal bowel movements, no blood in stool or black stools. No abdominal pain. No vomiting, she has some nausea sometimes. No chest pain, no shortness of breath, no difficulty swallowing. Appetite is okay. No headache, no blurred visions. Once in a while runny nose. No sore throat. No cough. Afebrile, hemodynamically stable in the ER. Admission Exam Per Admitting Provider PHYSICAL EXAMINATION: GENERAL: The patient is of moderate build, not in acute distress. VITAL SIGNS: Temperature 36.6, pulse 88, respiratory rate 14, blood pressure 144/81, oxygen 96% on room air. HEENT: Pupils equal, round and reactive to light. Oral mucosa moist. NECK: No JVD, no neck masses. CARDIOVASCULAR: S1 and S2 heard. Regular rate and rhythm. No murmur, no gallop. RESPIRATORY SYSTEM: Normal AP diameter. No accessory muscle use. No wheezing, no crackles. ABDOMEN: Soft, bowel sounds present, nontender, no distention. CENTRAL NERVOUS SYSTEM: Alert and oriented. Speech is clear. No facial droop. Insight is good. Obeys simple commands. Moves extremities. EXTREMITIES: No edema, no erythema. Principal Diagnosis Acute kidney injury Hyponatremia H/O Kidney transplant for diffuse mesangial proliferative glomerulonephritis in 2019 Urinary tract infection Hypomagnesemia Neutropenia Anemia Left ovary Cyst Pancreatic lesion Discharge Data Allergies Allergy/AdvReac Type Severity Reaction Status Date / Time No Known Allergies Allergy Verified 02/14/22 18:17 Consultations 02/14/22 19:20 ED Decision to Admit Stat Procedures Performed Laboratory Results WBC 0.99 K/ul (4.8-10.8) L* 02/16/22 06:54 RBC 2.91 M/uL (3.93-5.22) L 02/16/22 06:54 Hgb 8.9 g/dl (12.0-16.0) L 02/16/22 06:54 Hct 24.4 % (34.1-44.9) L 02/16/22 06:54 MCV 83.8 fL (80.0-100.0) 02/16/22 06:54 MCH 30.6 pg (25.0-34.0) 02/16/22 06:54 MCHC 36.5 g/dL (32.0-36.0) H 02/16/22 06:54 RDW Std Deviation 38.3 fL (36.4-46.3) 02/16/22 06:54 RDW Coeff of [place] 12.7 % (11.5-14.5) 02/16/22 06:54 Plt Count 123 K/uL (130-400) L 02/16/22 06:54 MPV 10.6 fL (9.4-12.3) 02/16/22 06:54 Immature Gran % (Auto) Cancelled 02/15/22 06:05 Neut % (Auto) Cancelled 02/15/22 06:05 Lymph % (Auto) Cancelled 02/15/22 06:05 Walker % (Auto) Cancelled 02/15/22 06:05 Eos % (Auto) Cancelled 02/15/22 06:05 Baso % (Auto) Cancelled 02/15/22 06:05 Neut # (Auto) Cancelled 02/15/22 06:05 Lymph # (Auto) Cancelled 02/15/22 06:05 Walker # (Auto) Cancelled 02/15/22 06:05 Eos # (Auto) Cancelled 02/15/22 06:05 Baso # (Auto) Cancelled 02/15/22 06:05 Immature Gran # (Auto) Cancelled 02/15/22 06:05 Neutrophils % (Manual) 80 % 02/16/22 06:54 Band Neutrophils % Cancelled 02/15/22 06:05 Lymphocytes % (Manual) 8 % 02/16/22 06:54 Prolymphocyte % Cancelled 02/15/22 06:05 Reactive Lymphs % (Man) Cancelled 02/15/22 06:05 Monocytes % (Manual) 13 % 02/16/22 06:54 Eosinophils % (Manual) Cancelled 02/15/22 06:05 Basophils % (Manual) Cancelled 02/15/22 06:05 Metamyelocytes % (Man) Cancelled 02/15/22 06:05 Myelocytes % (Man) Cancelled 02/15/22 06:05 Promyelocytes % (Man) Cancelled 02/15/22 06:05 Blast Cells % (Manual) Cancelled 02/15/22 06:05 Plasma Cell % (Manual) Cancelled 02/15/22 06:05 Other Cells % Cancelled 02/15/22 06:05 Nucleated RBC % Cancelled 02/15/22 06:05 Neutrophils # (Manual) 0.79 K/uL (1.4-6.5) L 02/16/22 06:54 Band Neutrophils # Cancelled 02/15/22 06:05 Total Absolute Neuts 0.79 K/uL (1.4-6.5) L* 02/16/22 06:54 Lymphocytes # (Manual) 0.08 K/uL (1.2-3.4) L 02/16/22 06:54 Prolymphocyte # Cancelled 02/15/22 06:05 Reactive Lymphs # Cancelled 02/15/22 06:05 Total Abs Lymphocytes 0.08 K/uL (1.2-3.4) L 02/16/22 06:54 Monocytes # (Manual) 0.13 K/uL (0.24-0.82) L 02/16/22 06:54 Eosinophils # (Manual) Cancelled 02/15/22 06:05 Basophils # (Manual) Cancelled 02/15/22 06:05 Metamyelocytes # (Man) Cancelled 02/15/22 06:05 Myelocytes # (Manual) Cancelled 02/15/22 06:05 Promyelocytes # (Man) Cancelled 02/15/22 06:05 Blast Cells # (Man) Cancelled 02/15/22 06:05 Plasma Cell # (Manual) Cancelled 02/15/22 06:05 Other Cells # Cancelled 02/15/22 06:05 Nucleated RBCs # (Man) Cancelled 02/15/22 06:05 Hypersegmented Neuts Cancelled 02/15/22 06:05 Hyposegmented Neuts Cancelled 02/15/22 06:05 Hypogranular Neuts Cancelled 02/15/22 06:05 Large Granular Lymphs Cancelled 02/15/22 06:05 # Lrg Granular Lymphs Cancelled 02/15/22 06:05 Hairy Cells Cancelled 02/15/22 06:05 Smudge Cells Cancelled 02/15/22 06:05 Toxic Granulation Cancelled 02/15/22 06:05 Toxic Vacuolation Cancelled 02/15/22 06:05 Dohle Bodies Cancelled 02/15/22 06:05 Ita Rods Cancelled 02/15/22 06:05 Hypogranular Platelets Cancelled 02/15/22 06:05 Clumped Platelets Cancelled 02/15/22 06:05 Giant Platelets Cancelled 02/15/22 06:05 Platelet Satelliting Cancelled 02/15/22 06:05 RBC Morphology Cancelled 02/15/22 06:05 Polychromasia Cancelled 02/15/22 06:05 Hypochromasia Cancelled 02/15/22 06:05 Poikilocytosis Cancelled 02/15/22 06:05 Basophilic Stippling Cancelled 02/15/22 06:05 Anisocytosis Cancelled 02/15/22 06:05 Microcytosis Cancelled 02/15/22 06:05 Macrocytosis Cancelled 02/15/22 06:05 Spherocytes Cancelled 02/15/22 06:05 Pappenheimer Bodies Cancelled 02/15/22 06:05 Sickle Cells Cancelled 02/15/22 06:05 Target Cells Cancelled 02/15/22 06:05 Tear Drop Cells Cancelled 02/15/22 06:05 Ovalocytes Cancelled 02/15/22 06:05 Stomatocytes Cancelled 02/15/22 06:05 [place] Bodies Cancelled 02/15/22 06:05 Echinocytes 1+ 02/16/22 06:54 Acanthocytes (Spur) 1+ 02/16/22 06:54 Rouleaux Cancelled 02/15/22 06:05 RBC Agglutinates Cancelled 02/15/22 06:05 Schistocytes Cancelled 02/15/22 06:05 Sezary Cell Cancelled 02/15/22 06:05 PT 11.6 Seconds (9.0-12.0) 02/14/22 16:56 INR 1.1 (0.9-1.1) 02/14/22 16:56 Sodium 130 mmol/L (136-145) L 02/16/22 06:54 Potassium 4.3 mmol/L (3.5-5.1) 02/16/22 06:54 Chloride 101 mmol/L (98-107) 02/16/22 06:54 Carbon Dioxide 18 mmol/L (21-32) L 02/16/22 06:54 Anion Gap 11 (3-11) 02/16/22 06:54 BUN 62 mg/dl (6-23) H 02/16/22 06:54 Creatinine 4.24 mg/dl (0.6-1.2) H 02/16/22 06:54 Est Cr Clr Drug Dosing 15.0 ml/min 02/16/22 06:54 Est GFR ( Amer) 11.8 ml/min 02/16/22 06:54 Est GFR (Non-Af Amer) 10.2 ml/min 02/16/22 06:54 BUN/Creatinine Ratio 14.6 (-20) 02/16/22 06:54 Glucose 196 mg/dl (70-99(Fasting)) H 02/16/22 06:54 POC Glucose 240 mg/dl (70-99) H 02/16/22 20:35 Estimat Average Glucose 272 mg/dl 02/15/22 06:05 Hemoglobin A1c 11.1 % (4.5-5.6) H 02/15/22 06:05 Osmolality 290 mOsm/kg (280-300) 02/14/22 19:19 Calcium 9.9 mg/dl (8.5-10.1) 02/16/22 06:54 Magnesium 1.6 mg/dl (1.7-2.4) L 02/16/22 06:54 Total Bilirubin 0.6 mg/dl (0.2-1.0) 02/14/22 16:56 AST 14 U/L (13-39) 02/14/22 16:56 ALT 16 U/L (7-52) 02/14/22 16:56 Alkaline Phosphatase 62 U/L (34-104) 02/14/22 16:56 Total Protein 8.4 gm/dl (6.0-8.3) H 02/14/22 16:56 Albumin 3.2 gm/dl (3.4-5.0) L 02/14/22 16:56 Globulin 5.2 gm/dl (2.5-4.0) H 02/14/22 16:56 Albumin/Globulin Ratio 0.6 (0.9-2) L 02/14/22 16:56 TSH 3.541 uIu/ml (0.300-4.500) 02/14/22 16:56 Urine Color [place] 02/14/22 20:40 Urine Appearance Cloudy (Clear) A 02/14/22 20:40 Urine pH 5.0 (4.5-7.5) 02/14/22 20:40 Ur Specific [place] 1.013 (1.000-1.030) 02/14/22 20:40 Urine Protein 2+ (Negative) H 02/14/22 20:40 Urine Glucose (UA) 1+ (Negative) H 02/14/22 20:40 Urine Ketones Negative (Negative) 02/14/22 20:40 Urine Blood 3+ (Negative) H 02/14/22 20:40 Urine Nitrite Negative (Negative) 02/14/22 20:40 Urine Bilirubin Negative (Negative) 02/14/22 20:40 Urine Urobilinogen Negative (Negative) 02/14/22 20:40 Ur Leukocyte Esterase Negative (Negative) 02/14/22 20:40 Urine WBC (Auto) 1-5 /hpf (0-5) 02/14/22 20:40 Urine RBC (Auto) >30 /hpf (0-4) H 02/14/22 20:40 U Hyaline Cast (Auto) 1-5 /lpf (0-5) 02/14/22 20:40 U Epithel Cells (Auto) 0-5 /lpf (0-5) 02/14/22 20:40 Urine Bacteria (Auto) 2+ (Negative) H 02/14/22 20:40 Urine Osmolality 338 mOsm/kg (500-800) L 02/14/22 20:40 Urine Sodium 43 mmol/L 02/14/22 20:40 Urine Potassium 28.8 mmol/L 02/14/22 20:40 Urine Chloride 46 mmol/L 02/14/22 20:40 SARS-CoV-2, RNA, NAAT NEGATIVE (NEGATIVE) 02/14/22 18:15 Blood Parasites ID Cancelled 02/15/22 06:05 Blood Type A Positive 02/14/22 17: Antibody Screen POSITIVE A 02/14/22 17: Antibody Identification Panagglutinin due to drug 02/14/22 17: Antibody ID Comment Cancelled 02/14/22 17: Crossmatch See Detail 02/14/22 17: Impressions Abdomen/Pelvis CT 02/14/22 15:[address] WITHOUT CONTRAST CT DOSE: 580.13 mGy.cm HISTORY: single kidney/transplx, L LOW BACK PAIN, recent bone bx TECHNIQUE: Multiaxial CT images of the abdomen and pelvis were performed without contrast. A dose lowering technique was utilized adhering to the principles of ALARA. COMPARISON STUDY: None. FINDINGS: There is a trace right pleural effusion. No pneumoperitoneum. No pneumatosis. Multiple scattered lytic lesions seen throughout the visualized osseous structures consistent with the patient's history of multiple myeloma. There are acute mild superior endplate compression fractures at L1 and L3. There are acute burst-type fractures involving the T12 and L4 vertebral bodies demonstrating up to 30% loss of height centrally. These favor pathologic fractures. No significant retropulsion. Mild paravertebral edema noted at the fracture sites. The unenhanced liver, gallbladder, spleen, and adrenal glands are unremarkable. No retroperitoneal lymphadenopathy. Normal caliber abdominal aorta. There are atrophic bilateral pe[place]anga kidneys. There is a 10 mm hypodense lesion within the body of the pancreas on image 88. No pelvic free fluid. The bladder is unremarkable. There is a 2 cm calcified uterine fibroid. There is a 3.5 cm cyst within the left ovary containing punctate calcification. Suboptimal evaluation for bowel pathology due to the lack of intravenous and oral contrast. However, there is no definite bowel wall thickening or obstruction. Normal appendix. There is a right lower quadrant renal transplant. No hydronephrosis. IMPRESSION: 1. Acute pathologic fractures involving the T12, L1, L3, and L4 vertebral bodies as described above demonstrating mild to moderate loss of height. No associated retropulsion. 2. Trace right pleural effusion. 3. Multiple scattered lytic lesions seen throughout the visualized osseous structures consistent the patient's known history of multiple myeloma. 4. No bowel wall thickening or obstruction. 5. A 3.5 cm cyst within the left ovary containing a punctate calcification. This could be pathologic in a postmenopausal female. Consider follow-up pelvic ultrasound in 3-6 months to ensure resolution. 6. A 10 mm hypodense lesion within the body of the pancreas. This favors a cystic neoplasm such as a serous cystadenoma or side branch intraductal papillary mucinous neoplasm. One year follow-up can be performed to ensure stability. 7. A right lower quadrant renal transplant is noted. ACT 112: Negative or not required by law. Electronically signed by: Farhad Ferro M.D. 02/14/2022 4:56 PM Ordered Studies 02/14/22 15:54 CT abd pelvis wo con Stat Diabetes Follow up Diabetes Follow-up Needed for HgbA1c >9% Hospital Course (1) CKD (chronic kidney disease), stage IV: Patient is a 66 yr female who presents with abnormal laboratories with kidney transplant and multiple myeloma, presents with abnormal laboratories. Abnormal laboratories Neutropenia Anemia Likely due to multiple myeloma S/P 2 units PRBCs On chemotherapy for multiple myeloma Denies any bleeding issues Transfuse as needed Monitor CBC Neutropenic precautions Neutropenia slowly improving Hb 8.9 today Acute kidney injury Hyponatremia H/O Kidney transplant for diffuse mesangial proliferative glomerulonephritis in 2019 Monitor renal function Creatinine 4.2 today Avoid nephrotoxic agents as able Plan to be transition to [facility] for further care Hypomagnesemia Replete electrolytes as needed UTI--POA Urine Cx: E. coli Continue Rocephin DM II Hold glipizide and Trulicity Continue Insulin Monitor BGs Hyperlipidemia on statin. Hypertension continue Coreg and amlodipine Pathological spine fractures CT :Acute pathologic fractures involving the T12, L1, L3, and L4 vertebral bodies as described above demonstrating mild to moderate loss of height. No associated retropulsion. Denies any pain Follow up as outpatient Left ovary Cyst Chronic as per patient CT:A 3.5 cm cyst within the left ovary containing a punctate calcification. This could be pathologic in a postmenopausal female. Consider follow-up pelvic ultrasound in 3-6 months to ensure resolution. Follow-up as outpatient Pancreatic lesion CT:A 10 mm hypodense lesion within the body of the pancreas. This favors a cystic neoplasm such as a serous cystadenoma or side branch intraductal papillary mucinous neoplasm. One year follow-up can be performed to ensure stability. Follow-up as outpatient GERD PPI H/O Renal transplant continue transplant meds Monitor renal function Plan to transfer to [facility] DVT Px: SCDs for now CODE STATUS Full code Disposition Tertiary care facility Total Time Total Time Spent Total Time Spent (In Minutes): 49 minutes Discharge Plan Discharge Items Patient Disposition: Transfer Acute Care Hospital Reason For Visit: SHANNON, ANEMIA Discharge Diagnosis: Acute kidney injury Hyponatremia H/O Kidney transplant for diffuse mesangial proliferative glomerulonephritis in 2019 Urinary tract infection Hypomagnesemia Neutropenia Anemia Left ovary Cyst Pancreatic lesion Activity: Per Instructions section Exercise/Sports: Wait until after follow-up appointment Non-emergency contact: Primary Care Provider and High Lift Driver Call non-emergency contact if: you have any medication questions, your symptoms worsen, your pain is concerning for you and you have a fever Follow-up/Referrals: Peace Overton, [Primary Care Provider] - Diet: Carb Consistent or DM2 and Heart Healthy Addtl Attending Provider Instructions: Follow up Dr. De Souza/ at [facility] for further evaluation and management. Addtl Jockey'S Agent Provider Instructions: Current Inpatient Medications Acetaminophen (Acetaminophen 325 Mg Tab) 650 mg PO Q4H PRN PRN Reason: Pain or Fever Stop: 03/16/22 22:49 Last Admin: 02/16/22 05:20 Dose: 650 mg Acyclovir (Acyclovir 400 Mg Tab) 400 mg PO TID [place] Stop: 03/17/22 08:59 Last Admin: 02/16/22 13:41 Dose: 400 mg Allopurinol (Allopurinol 300 Mg Tab) 150 mg PO QAM [place] Stop: 03/17/22 08:59 Last Admin: 02/16/22 08:05 Dose: 150 mg Amlodipine Besylate (Amlodipine Besylate 5 Mg Tab) 5 mg PO QPM [place] Stop: 03/17/22 20:59 Last Admin: 02/15/22 19:38 Dose: 5 mg Aspirin (Aspirin 81 Mg Ectab) 81 mg PO DAILY [facility] Stop: 03/17/22 08:59 Last Admin: 02/16/22 08:06 Dose: 81 mg Atorvastatin Calcium (Atorvastatin 40 Mg Tab) 40 mg PO QAM [facility] Stop: 03/17/22 08:59 Last Admin: 02/16/22 08:06 Dose: 40 mg Carvedilol (Carvedilol 12.5 Mg Tab) 12.5 mg PO BIDM [facility] Stop: 03/17/22 07:59 Last Admin: 02/16/22 17:24 Dose: 12.5 mg Cyclophosphamide (Cyclophosphamide 25 Mg Tab) 650 mg PO Mo@0900 [facility] Stop: 03/16/22 23:29 Last Admin: 02/15/22 01:05 Dose: 650 mg Dexamethasone (Dexamethasone 4 Mg Tab) 40 mg PO Mo@0900 [facility] Stop: 03/16/22 23:29 Last Admin: 02/15/22 01:03 Dose: 40 mg Dextrose (Dextrose 50% 50 Ml Syringe) 25 - 50 ml IV UD PRN; Protocol PRN Reason: Hypoglycemia Protocol Stop: 03/17/22 08:44 Glucagon (Glucagon For Inj 1 Mg Vial) 1 mg IM UD PRN; Protocol PRN Reason: Hypoglycemia Protocol Stop: 03/17/22 08:44 Glucose (Glucose 40% Gel 15 Gm Tube) 15 - 30 gm PO UD PRN; Protocol PRN Reason: Hypoglycemia Protocol Stop: 03/17/22 08:44 Glucose (Glucose 10 Tab/Tube) 4 - 8 tab PO UD PRN; Protocol PRN Reason: Hypoglycemia Protocol Stop: 03/17/22 08:44 Ceftriaxone Sodium 2,000 mg/ (Dextrose) 70 mls @ 100 mls/hr IV Q24H [facility]; Protocol Stop: 02/24/22 22:59 Last Infusion: 02/16/22 02:29 Dose: Infused Insulin Aspart (Insulin Aspart Per Unit) 0 units SC ACHS [facility] Stop: 03/17/22 11:29 Last Admin: 02/16/22 17:20 Dose: 11 units Insulin Glargine (Lantus Per Unit Charge) 15 units SQ BID [facility] Stop: 03/17/22 15:59 Last Admin: 02/16/22 08:41 Dose: 15 units Miscellaneous (Carbohydrates For Hypoglycemia ) 15 - 30 gm PO UD PRN PRN Reason: Hypoglycemia Treatment Stop: 03/17/22 08:44 Miscellaneous Information (Pharmacy Glycemic Mgmt Consult) 1 each N/A UD PRN; Protocol PRN Reason: Consult Stop: 03/17/22 12:15 Nitroglycerin (Nitroglycerin Sl 0.4 Mg/Tab Tab) 0.4 mg SL UD PRN PRN Reason: Chest Pain Stop: 03/16/22 22:49 Ondansetron HCl (Ondansetron Inj 2 Mg/Ml 2 Ml Vial) 4 mg IV Q6H PRN PRN Reason: Nausea Stop: 03/16/22 22:49 Last Admin: 02/16/22 05:41 Dose: 4 mg Pantoprazole Sodium (Pantoprazole 40 Mg Tab) 40 mg PO DAILY [place] Stop: 03/17/22 08:59 Last Admin: 02/16/22 08:06 Dose: 40 mg Polyethylene Glycol (Polyethylene (Miralax) 17 Gm Pack) 17 gm PO DAILY PRN PRN Reason: Constipation Stop: 03/16/22 22:49 Prednisone (Prednisone 5 Mg Tab) 5 mg PO DAILY [place] Stop: 03/17/22 08:59 Last Admin: 02/16/22 08:06 Dose: 5 mg Prochlorperazine (Prochlorperazine Maleate 10 Mg Tab) 10 mg PO Q6H PRN PRN Reason: NAUSEA/VOMITING Stop: 03/16/22 22:49 Tacrolimus (Tacrolimus 1 Mg Ertab (Patients Own Medication)) 2 mg PO QAM [place] Stop: 03/17/22 14:29 Last Admin: 02/16/22 08:07 Dose: 2 mg Tramadol HCl (Tramadol Hcl 50 Mg Tablet) 50 mg PO Q6H PRN PRN Reason: Pain Stop: 03/16/22 22:49 Pending Studies at Discharge: No Stand-Alone Forms: [facility] Skilled Items Patient informed of condition?: Yes DNR: No Discharge Level of Care: Other Communicable Disease: No Discharge Prognosis: Stable Lines: Peripheral IV Urinary Catheter: No Medications and DC Order Prescriptions: Continued atorvastatin 40 mg tablet 40 mg PO QAM carvedilol 12.5 mg tablet 12.5 mg PO BIDM ondansetron HCl 8 mg tablet 8 mg PO QAM Rx Instructions: TAKE 1 HOUR PRIOR TO ORAL CHEMOTHERAPY. glipizide 10 mg tablet extended release 24hr 10 mg PO QAM prednisone 5 mg tablet 5 mg PO DAILY amlodipine 5 mg tablet 5 mg PO QPM prochlorperazine maleate 10 mg tablet 10 mg PO Q6H PRN (Reason: NAUSEA/VOMITING) acyclovir 400 mg tablet 400 mg PO TID Rx Instructions: TAKES QAM, NOON, & HS. aspirin 81 mg Tablet,Delayed Release (Dr/Ec) 81 mg PO DAILY tramadol 50 mg tablet 50 mg PO Q6H PRN (Reason: Pain) dexamethasone 4 mg tablet 40 mg PO WK Rx Instructions: TAKES 10 TABS ONCE WEEKLY. allopurinol 300 mg tablet 150 mg PO QAM omeprazole 20 mg Tablet,Delayed Release (Dr/Ec) 20 mg PO QAM cyclophosphamide 50 mg Capsule 650 mg PO WK Rx Instructions: TAKE 13 CAPS ONCE WEEKLY ON EMPTY STOMACH. Envarsus XR 1 mg Tablet Extended Release 24 Hr 2 mg PO QAM Rx Instructions: must be taken on empty stomach Trulicity 3 mg/0.5 mL Pen Injector 3 mg SUBCUT WK Rx Instructions: TAKES ON WEDNESDAYS. Discharge Orders: Discharge Order (Routine); Ordered 02/16/22 Ordered By: Brent Munoz Admission Data Admit Date/Time: 02/14/22 21:20 Attending Provider: Brent Munoz Admit Provider: Nash Murcia Primary Care Provider: Peace Overton Other Providers: Nash Murcia
[2022-02-16] MEDS: amLODIPine BESYLATE 5 MG TAB PO SCH (20:50)
== END 2022-02-16 22:00 | disposition short-term general hospital (02) | DRG 841 ==
LOC: ED 14:52 → SUATTDRO 21:20 → 4W 21:20

== ENCOUNTER 2022-03-08 13:31 | Observation (INO) ==
[2022-03-08] MEDS ORDERED: PIPERACILLIN/TAZOBACTAM 4.5 GM/120 ML BAG IV ONE (14:14)
[2022-03-08] MEDS ORDERED: MoRPHine SULFATE 4 MG/ML 1 ML CARP\\VIAL IV STA (14:14)
[2022-03-08] MEDS ORDERED: SODIUM CHLORIDE 0.9% 1000ML 1,000 ML IV SCH (14:15)
--- NOTE | 2022-03-08 14:49 | XRay Report ---
SINGLE VIEW CHEST CLINICAL HISTORY: Sepsis. FINDINGS: 2 AP, portable, upright chest radiographs are compared to study dated 08/22/2017. The heart is mildly enlarged. The pulmonary vasculature is noncongested. Atelectasis is noted at the lung bases . The lungs and pleural spaces are otherwise clear. No pneumothorax is seen. The skeletal structures are osteopenic. The bony thorax is grossly intact. IMPRESSION: Mild cardiomegaly with no active disease in the chest. ACT 112: Negative or not required by law. Electronically signed by: Suleman Nicole M.D. 03/08/2022 2:48 PM
--- NOTE | 2022-03-08 15:20 | CT Scan Report ---
CT OF THE ABDOMEN AND PELVIS WITHOUT CONTRAST CLINICAL HISTORY: back pain, renal trx, cough, h/o multiple myeloma COMPARISON STUDY: CT of the abdomen and pelvis February 14, 2022. TECHNIQUE: Axial images of the abdomen and pelvis were obtained without IV contrast. Images were revi ewed in the axial, sagittal, and coronal planes. Automated exposure control was utilized for the bjorn dy. A dose lowering technique was utilized adhering to the principles of ALARA. FINDINGS: There has been interval development of mild multifocal ground glass opacities within the lo wer lungs since CT of February 14, 2022. No pneumatosis, free air or portal venous gas is present. Kaila luation of the abdomen and pelvis is suboptimal on this unenhanced exam. Size of the spleen is at the upper limits of normal. Unenhanced images of the liver and adrenal glands are unremarkable. A 1.3 cm cystic lesion within the pancreatic body on image 87 of [id number] is again noted. There is no pancreatic d uctal dilatation. This is suboptimally assessed on this unenhanced exam. No peripancreatic stranding is present. Gallbladder is moderately distended. There is no adjacent stranding. Both [place] kidneys are atrophic. Right lower quadrant renal allograft is noted. There is no perigraft fluid collection. There is no graft hydronephrosis. There is subtle stranding within the right renal sinus with possibl e urothelial thickening. No evidence for a bowel obstruction. The appendix is normal. Calcified fibro id is incidentally noted. 3.3 cm cystic lesion within the left ovary is noted. This is unchanged. Lyt ic skeletal lesions are again noted. Pathologic fractures, likely subacute, of T12, L1, L3 and L4 are noted. There has been interval increase in vertebral body height loss of the T12 and L1 vertebral darryl dy since prior CT. A T11 pathologic fracture is new since prior CT of February 14, 2022. Trace gas wit hin the bladder may be related to instrumentation. IMPRESSION: 1. Interval development of mild patchy airspace opacities within the lower lungs since prior abdomina l CT. The findings suggest an infectious process. 2. No bowel obstruction. No bowel wall thickening on unenhanced exam. 3. Interval development of a T11 pathologic fracture since CT of February 14, 2022. This is likely acu te. Redemonstration of T12, L1, L3 and L4 pathologic fractures, as above. Redemonstration of lytic sk eletal lesions consistent with myeloma. 4. Moderate gallbladder distention. No adjacent stranding. This could be correlated with right upper quadrant pain and ultrasound if indicated. 5. Nonspecific mild urothelial thickening of the right lower quadrant renal allograft which could be correlated with urinalysis. 6. No change in a 1.3 cm cystic lesion within the pancreatic body. This may reflect a side branch IPM N. One year follow CT is recommended to ensure stability. 7. No change in a 3.3 cm cystic lesion within the left ovary. This is probably benign although abnorm al in a postmenopausal patient. This can be assessed with a nonemergent pelvic ultrasound. ACT 112: Negative or not required by law. Electronically signed by: César Queen M.D. 03/08/2022 3:18 PM
[2022-03-08 15:31] LABS: Adenovirus PCR Not Detected (NotDetected); Bordetella parapertussis PCR Not Detected (NotDetected); Bordetella pertussis PCR Not Detected (NotDetected); Chlamydia pneumoniae PCR Not Detected (NotDetected); Coronavirus 229E PCR Not Detected (NotDetected); Coronavirus HKU1 PCR Not Detected (NotDetected); Coronavirus NL63 PCR Not Detected (NotDetected); Coronavirus OC43PCR Not Detected (NotDetected); Human Metapneumovirus PCR Not Detected (NotDetected); Influenza A PCR Not Detected (NotDetected); Influenza B PCR Not Detected (NotDetected); Mycoplasma pneumoniae PCR Not Detected (NotDetected); Parainfluenza Virus 1 PCR Not Detected (NotDetected); Parainfluenza Virus 2 PCR Not Detected (NotDetected); Parainfluenza Virus 3 PCR Not Detected (NotDetected); Parainfluenza Virus 4 PCR Not Detected (NotDetected); Respiratory Syncytial VirusPCR Not Detected (NotDetected); Rhinovirus/Enterovirus PCR Not Detected (NotDetected)
[2022-03-08] MEDS ORDERED: METOCLOPRAMIDE HCL INJ 5 MG/ML 2 ML VIAL IV STA (15:40)
[2022-03-08 15:42] LABS: Coronavirus CoV-2 (COVID19)PCR DETECTED (NotDetected)
[2022-03-08] MEDS ORDERED: SODIUM CHLORIDE 0.9% 1000ML 500 ML IV ONE ×2 (15:58→16:40)
[2022-03-08 15:59] LABS: Albumin Level 3.1 gm/dl (3.4-5.0); BUN Creatinine Ratio 10.3 (10-20); Bilirubin Direct 0.1 mg/dl (0-0.2); Bilirubin,Total 0.9 mg/dl (0.2-1.0); Calcium 4.9 mg/dl (8.5-10.1); Creatinine Clr Calc Pharmacy 9.5 ml/min; Est GFR (African American) 6.8 ml/min; Est GFR (Non-African American) 5.8 ml/min; Magnesium 1.2 mg/dl (1.7-2.4); Potassium 3.5 mmol/L (3.5-5.1); Total Protein 9.1 gm/dl (6.0-8.3); Troponin I High Sensitivity 13.4 pg/ml (0-14)
[2022-03-08 16:03] LABS: Hematocrit (blood only) 23.9 % (34.1-44.9); Hemoglobin 8.5 g/dl (12.0-16.0); Mean Corpuscular Hemoglobin 30.2 pg (25.0-34.0); Mean Corpuscular Hgb Conc 35.6 g/dL (32.0-36.0); Mean Corpuscular Volume 85.1 fL (80.0-100.0); Mean Platelet Volume 12.2 fL (9.4-12.3); Platelet Count 105 K/uL (130-400); RDW Coefficient of Variation 14.6 % (11.5-14.5); RDW Standard Deviation 45.1 fL (36.4-46.3); Red Blood Count 2.81 M/uL (3.93-5.22); White Blood Count 2.37 K/ul (4.8-10.8)
[2022-03-08] MEDS: CALCIUM GLUCONATE 1,000 MG/60 ML BAG IV SCH ×2 (16:08→16:33)
[2022-03-08] MEDS ORDERED: MAGNESIUM SULFATE / D5W 1 GM/100 ML BAG IV STA (16:15)
[2022-03-08] MEDS ORDERED: DOXYCYCLINE HYCLATE 100 MG in DEXTROSE 5% 100 ML IV STA (16:41)
--- NOTE | 2022-03-08 16:44 | History & Physical Report ---
Date of Service March 08, 2022 Assessment & Plan (1) Pneumonia due to COVID-19 virus: Plan: This is a 66 yo F with PMhx of diabetes, hyperlipidemia, hypertension, history of nephrotic syndrome and diffuse mesangial proliferative glomerulonephritis, status post kidney transplant in 2019 at [facility]. The patient was diagnosed with MGUS in 2014. Recently diagnosed with MGUS converted to multiple myeloma and is on chemotherapy since last 5 weeks, weekly chemotherapy. She last received her oral cyclophosphamide 50 mg x 13 capsules last and then follows it the day after with dexamethasone 40 mg. Today she is found to be COVID +19 positive, dehydrated, and in acute renal failure with hypocalcemia, hyponatremia, and hypomagnesemia with worsening of MM with new pathological fracture found in T12, amongst other known pathological fractures in the tho racic and lumbar spine. She has been accepted to [facility] due to her complex history with renal transplant, however no bed is available tonight. Plan for discharge tomorrow pending bed availability. - Admit to med surg with tele - Will order mucinex/codeine for cough and chronic back pain, duonebs QID prn, she is currently not hypoxic and saturating well on room air at 93 to 95% -COVID positive, negative bio fire panel otherwise - WBC at time of admission = 2.37 - BCx x 2, follow - Afebrile - Lactic acid normal, Procalcitonin 1.66 - CXR reviewed as above, CT as above - Continue antibiotic therapy with zosyn and doxycycline IV (2) Acute renal failure: (3) Renal transplant recipient: Plan: - Holding tacrolimus - Stress dose steroids with acute infection to avoid complications with possible underlying adrenal insufficiency, on chronic prednisone 5 mg daily along with once a week dexamethasone 40 mg . - Pt notes that she would like HD if she can maintain a similar quality of life but is reasonable in her expectations. Consider palliative care medicine during hospital stay - Discussed with nephrology who we have consulted for Cr. of 6.21, BUN 67, with previous cr being in 4.1-4.2, potassium 3.6, AG 16 - appreciate nephrology recommendations - Continue BMP Q4H and ca+ Q4H -Given 2 liters NSS in the er, continue on 125ml/hr - Checking Urine osmolality, serum osm, hyponatremic with sodium of 125 on admission (4) Hypomagnesemia: Plan: -1.2 on admission, replaced with 1 g IV mag in the ER, follow with morning labs -EKG reviewed and is without any acute changes (5) Hypercalcemia: Plan: -Given calcium gluconate 2000 mg in the ER - checking calcium Q4H, 4.9 --> 5.2 on admission, treated with 2 g IV calcium in the ER (6) Multiple myeloma: Plan: - Due to get chemotherapy tomorrow, hold with acute pna, COVID, and dehydration causing the ARF as above -Holding tacrolimus -Continue acyclovir -Being treated with IV antibiotics including Zosyn and doxycycline -check CK, phosphorus, uric acid to evaluate for tumor lysis syndrome (7) HTN (hypertension): Plan: - Hold, amlodipine, carvedilol-patient did not take medications this morning due to feeling ill - Bp currently stable - If any drop in BP consider acute stress with adrenal insufficiency on chronic steroids and initiate stress dosing of steroids (8) Anemia: Plan: - Chronic (9) Pathological fracture: Plan: - New on T12, shows other known pathological fx in T11, L1, L3 -Continue tramadol for pain control (10) DM II (diabetes mellitus, type II), controlled: Plan: - Last A1C = 11.1 during most recent hospital stay in Jan 2022 -Hold glipizide, Trulicity given on Wednesdays, she missed her normal routine dose today 03/08/2022. -ISS with Accu-Cheks ACHS, glucose is 160 on admission -Allow diet DVT PPx: -- teds, scds, CODE: DNR/DNI Dispo: From home, transfer to [facility] after bed is available History of Present Illness Chief Complaint: Back pain Primary Care Provider: Peace Overton DO This is a 66 yo F with PMhx of diabetes, hyperlipidemia, hypertension, history of nephrotic syndrome and diffuse mesangial proliferative glomerulonephritis, status post kidney transplant in 2019 at [facility]. The patient was diagnosed with MGUS in 2014. Recently diagnosed with MGUS converted to multiple myeloma and is on chemotherapy since last 5 weeks, weekly chemotherapy. She last received her oral cyclophosphamide 50 mg x 13 capsules last and then follows it the day after with dexamethasone 40 mg. The patients main complaints include cough, back pain, which has been ongoing for several weeks now and thought that the cough was due to the chemotherapy. She denies any fever, chills or sweats and does check her temp daily. Denies any shortness of breath at rest but feels due to pain in her back she was getting short of breath on exertion. Developed some intermittent nausea and vomiting every morning, some mornings threw up. She reports poor po intake and having difficulty drinking her regular 6 btls of water, and was down to 3-4 the past 4 mott. She gets shakey at times and feels its worse when she's dehydrated. She has been taking tacrolimus and and tixagevimab inj every 6 months. She has been working with transplant team and her oncologist. She has not seen them since her lst hospital discharge. - Imaging reveals a newd evelopment of T12 pathological fracture, old T11 pathological fracture, L1, L3 and L4. Lungs show interval development of mild patchy airspace opacities within the lower lungs. Initially she was tachycardic. Allergies Allergy/AdvReac Type Severity Reaction Status Date / Time No Known Allergies Allergy Verified 03/06/22 11:10 Home Medications Medication Instructions Recorded Confirmed Type acyclovir 400 mg tablet 400 mg PO TID 02/14/22 03/08/22 History allopurinol 300 mg tablet 150 mg PO QAM 02/14/22 03/08/22 History amlodipine 5 mg tablet 5 mg PO QPM 02/14/22 03/08/22 History aspirin 81 mg tablet,delayed 81 mg PO DAILY 02/14/22 03/08/22 History release atorvastatin 40 mg tablet 40 mg PO QAM 02/14/22 03/08/22 History carvedilol 12.5 mg tablet 12.5 mg PO BIDM 02/14/22 03/08/22 History cyclophosphamide 50 mg capsule 650 mg PO WK 02/14/22 03/08/22 History dexamethasone 4 mg tablet 40 mg PO WK 02/14/22 03/08/22 History dulaglutide 3 mg/0.5 mL 3 mg subcut WK 02/14/22 03/08/22 History subcutaneous pen injector (Trulicity) omeprazole 20 mg tablet,delayed 20 mg PO QAM 02/14/22 03/08/22 History release ondansetron HCl 8 mg tablet 8 mg PO QAM 02/14/22 03/08/22 History prednisone 5 mg tablet 5 mg PO DAILY 02/14/22 03/08/22 History prochlorperazine maleate 10 mg 10 mg PO Q6H PRN NAUSEA/VOMITING 02/14/22 03/08/22 History tablet tacrolimus 1 mg tablet,extended 2 mg PO QAM 02/14/22 03/08/22 History release 24 hr (Envarsus XR) tramadol 50 mg tablet 50 mg PO Q6H PRN Pain 02/14/22 03/08/22 History dulaglutide 3 mg/0.5 mL 3 mg subcut WK 03/08/22 03/08/22 History subcutaneous pen injector (Trulicity) ergocalciferol (vitamin D2) 1,250 1,250 mcg PO Q4WK 03/08/22 03/08/22 History mcg (50,000 unit) capsule (Vitamin D2) Past Med/Surg History Medical History (Updated 03/08/22 @ 17:58 by Migdalia Henning PA-C) C3 glomerulonephritis CKD (chronic kidney disease), stage IV DM II (diabetes mellitus, type II), controlled HTN (hypertension) MGUS (monoclonal gammopathy of unknown significance) Multiple myeloma Surgical History Hx of kidney transplant S/P ACL repair S/P hemorrhoidectomy Family History (Updated 03/08/22 @ 16:53 by Migdalia Henning PA-C) Father Cancer Brother Kidney disease Glioblastoma Heart disease Diabetes MDS (myelodysplastic syndrome) Prostate cancer Mother Autoimmune hepatitis Social History Smoking Status: Never smoker Hx Alcohol Use: No Hx Substance Use: No Preferred Language: Vincentian Communication Ability: Effective Immigration Paralegal Required: No Beliefs That Will Affect Care: None Current Living Situation: Spouse Feels Safe at Home: Yes Assistive Devices: None Review of Systems Review of Systems: Constitutional: No fever, sweats or chills Eyes: No diplopia, no worsening or blurred vision ENT: normal hearing, no trouble swallowing Respiratory: + cough, +sputum white and clear, +dyspnea on exertion Cardiovascular: No chest pain, tightness or palpitations Abdomen: No pain, + nausea, +vomiting, no diarrhea or constipation Musculoskeletal: R lower back pain chronic, otherwise No joint pain, calf pain, swelling Neurologic: No weakness, numbness/tingling, or balance problems Psychiatric: No anxiety or depression Skin: No rash or itch Physical Exam Physical Exam: General: awake, alert, no apparent distress, loosing hair Head: Normocephalic, atraumatic ENT: PERRL, EOMI, no pharyngeal exudate, mucous membranes moist Chest: +Faint crackles at Right base, diminished breath sounds at bases, no wheeze or rales. On room air with O2 sats at 95%. Cardiac: Regular rate and rhythm, no murmur, no JVD, normal peripheral pulses, good capillary refill Abdominal: NABS x 4 quadrants, soft, nondistended, nontender to palpation, no rebound or guarding Extremities: Normal inspection, no peripheral edema or erythema, calfs nontender to palpation Psych: Normal mood and affect Neuro: AAO x 3, strength intact bilaterally and rated 5/5, no motor deficits, speech is clear, no peripheral sensory deficits Results & Data Results & Data ([facility]) Vital Signs (Past 12 Hours) Vital Signs Temp Pulse Pulse Resp BP BP Pulse Ox 03/08/22 15:58 93 H 20 115/73 95 03/08/22 15:28 96 H 20 117/78 95 03/08/22 14:43 96 H 18 117/81 96 03/08/22 14:28 98 H 14 128/80 95 03/08/22 14:13 99 H 18 92/59 L 94 03/08/22 14:18 94 03/08/22 13:45 36.7 C 102 H 20 91/54 L 96 03/08/22 13:45 36.7 C 102 H 20 91/54 L 96 O2 Del Method 03/08/22 15:58 Room Air 03/08/22 15:28 Room Air 03/08/22 14:43 Room Air 03/08/22 14:28 Room Air 03/08/22 14:13 Room Air 03/08/22 14:18 Room Air 03/08/22 13:45 Room Air 03/08/22 13:45 Room Air Laboratory Results 03/08/22 14:37 Aerobic Blood Culture - Pending Blood Anaerobic Blood Culture - Pending 03/08/22 14:31 Aerobic Blood Culture - Pending Blood Anaerobic Blood Culture - Pending 03/08/22 03/08/22 03/08/22 14:31 14:23 13:40 WBC RBC Hgb Hct MCV MCH MCHC RDW Std Deviation RDW Coeff of [place] Plt Count MPV Sodium Potassium Chloride Carbon Dioxide Anion Gap BUN Creatinine Est Cr Clr Drug Dosing Est GFR ( Amer) Est GFR (Non-Af Amer) BUN/Creatinine Ratio Glucose Lactate 1.6 Calcium Magnesium Total Bilirubin Direct Bilirubin AST ALT Alkaline Phosphatase Troponin I High Sens Total Protein Albumin Procalcitonin 1.66 H Adenovirus (PCR) Not Detected B. pertussis DNA (PCR) Not Detected B.parapertussis DNA PCR Not Detected C. pneumoniae DNA (PCR) Not Detected Coronavirus OC43 (PCR) Not Detected Coronavirus HKU1 (PCR) Not Detected Coronavirus 229E (PCR) Not Detected SARS-CoV-2 (PCR) DETECTED A* Coronavirus NL63 (PCR) Not Detected Human Metapneumovir PCR Not Detected Influenza Type A (PCR) Not Detected Influenza Type B (PCR) Not Detected M. pneumoniae (PCR) Not Detected Parainfluenza 1 (PCR) Not Detected Parainfluenza 2 (PCR) Not Detected Parainfluenza 3 (PCR) Not Detected Parainfluenza 4 (PCR) Not Detected RSV (PCR) Not Detected Entero/Rhino (PCR) Not Detected 03/08/22 03/08/22 13:40 13:40 WBC 2.37 L RBC 2.81 L Hgb 8.5 L Hct 23.9 L MCV 85.1 MCH 30.2 MCHC 35.6 RDW Std Deviation 45.1 RDW Coeff of [place] 14.6 H Plt Count 105 L MPV 12.2 Sodium 125 L Potassium 3.5 Chloride 93 L Carbon Dioxide 16 L Anion Gap 16 H BUN 69 H Creatinine 6.70 H* Est Cr Clr Drug Dosing 9.5 Est GFR ( Amer) 6.8 Est GFR (Non-Af Amer) 5.8 BUN/Creatinine Ratio 10.3 Glucose 160 H Lactate Calcium 4.9 L* Magnesium 1.2 L Total Bilirubin 0.9 Direct Bilirubin 0.1 AST 14 ALT 13 Alkaline Phosphatase 50 Troponin I High Sens 13.4 Total Protein 9.1 H Albumin 3.1 L Procalcitonin Adenovirus (PCR) B. pertussis DNA (PCR) B.parapertussis DNA PCR C. pneumoniae DNA (PCR) Coronavirus OC43 (PCR) Coronavirus HKU1 (PCR) Coronavirus 229E (PCR) SARS-CoV-2 (PCR) Coronavirus NL63 (PCR) Human Metapneumovir PCR Influenza Type A (PCR) Influenza Type B (PCR) M. pneumoniae (PCR) Parainfluenza 1 (PCR) Parainfluenza 2 (PCR) Parainfluenza 3 (PCR) Parainfluenza 4 (PCR) RSV (PCR) Entero/Rhino (PCR) Diagnostic Findings Chest X-Ray 03/08/22 14:13 SINGLE VIEW CHEST CLINICAL HISTORY: Sepsis. FINDINGS: 2 AP, portable, upright chest radiographs are compared to study dated 08/22/2017. The heart is mildly enlarged. The pulmonary vasculature is noncongested. Atelectasis is noted at the lung bases. The lungs and pleural spaces are otherwise clear. No pneumothorax is seen. The skeletal structures are osteopenic. The bony thorax is grossly intact. IMPRESSION: Mild cardiomegaly with no active disease in the chest. ACT 112: Negative or not required by law. Electronically signed by: Suleman Nicole M.D. 03/08/2022 2:48 PM Abdomen/Pelvis CT 03/08/22 14:14 CT OF THE ABDOMEN AND PELVIS WITHOUT CONTRAST CLINICAL HISTORY: back pain, renal trx, cough, h/o multiple myeloma COMPARISON STUDY: CT of the abdomen and pelvis February 14, 2022. TECHNIQUE: Axial images of the abdomen and pelvis were obtained without IV contrast. Images were reviewed in the axial, sagittal, and coronal planes. Automated exposure control was utilized for the study. A dose lowering technique was utilized adhering to the principles of ALARA. FINDINGS: There has been interval development of mild multifocal ground glass opacities within the lower lungs since CT of February 14, 2022. No pneumatosis, free air or portal venous gas is present. Evaluation of the abdomen and pelvis is suboptimal on this unenhanced exam. Size of the spleen is at the upper limits of normal. Unenhanced images of the liver and adrenal glands are unremarkable. A 1.3 cm cystic lesion within the pancreatic body on image 87 of 456 is again noted. There is no pancreatic ductal dilatation. This is suboptimally assessed on this unenhanced exam. No peripancreatic stranding is present. Gallbladder is moderately distended. There is no adjacent stranding. Both [place] kidneys are atrophic. Right lower quadrant renal allograft is noted. There is no perigraft fluid collection. There is no graft hydronephrosis. There is subtle stranding within the right renal sinus with possible urothelial thickening. No evidence for a bowel obstruction. The appendix is normal. Calcified fibroid is incidentally noted. 3.3 cm cystic lesion within the left ovary is noted. This is unchanged. Lytic skeletal lesions are again noted. Pathologic fractures, likely subacute, of T12, L1, L3 and L4 are noted. There has been interval increase in vertebral body height loss of the T12 and L1 vertebral body since prior CT. A T11 pathologic fracture is new since prior CT of February 14, 2022. Trace gas within the bladder may be related to instrumentation. IMPRESSION: 1. Interval development of mild patchy airspace opacities within the lower lungs since prior abdominal CT. The findings suggest an infectious process. 2. No bowel obstruction. No bowel wall thickening on unenhanced exam. 3. Interval development of a T11 pathologic fracture since CT of February 14, 2022. This is likely acute. Redemonstration of T12, L1, L3 and L4 pathologic fractures, as above. Redemonstration of lytic skeletal lesions consistent with myeloma. 4. Moderate gallbladder distention. No adjacent stranding. This could be correlated with right upper quadrant pain and ultrasound if indicated. 5. Nonspecific mild urothelial thickening of the right lower quadrant renal allograft which could be correlated with urinalysis. 6. No change in a 1.3 cm cystic lesion within the pancreatic body. This may reflect a side branch IPMN. One year follow CT is recommended to ensure stability. 7. No change in a 3.3 cm cystic lesion within the left ovary. This is probably benign although abnormal in a postmenopausal patient. This can be assessed with a nonemergent pelvic ultrasound. ACT 112: Negative or not required by law. Electronically signed by: César Queen M.D. 03/08/2022 3:18 PM Code Status & VTE Plan Code Status DNR/DNI- discussed with the patient at bedside Supervising Physician Co-Signing Physician Notes Patient seen and examined independently. Agree with above assessment and plan by Migdalia Henning PA-C. Patient is a 66-year-old female with past medical history of renal transplant on tacrolimus, multiple myeloma with pathological fracture on chemotherapy, type 2 diabetes mellitus, hypertension presented to the ED with cough, nausea, vomiting and decreased appetite. Patient was recently transferred to [facility] from the hospital in January when she presented with SHANNON on CKD. After the discharge, patient reported having increasing dry cough, nausea and vomiting associated with chemotherapy and decreased fluid intake. Her most recent labs done as outpatient on 03/02 reveals creatinine of 4.9, uric acid of 6.4 and calcium of 6.8. She reports decreased fluid intake due to nausea and vomiting and decreased urine output as well. On examination She is alert oriented x3, not in any distress Chestbilateral vesicular breath sound CVSS1-S2, no murmur Abdomensoft, nontender. 1+ pitting edema present. MSKtenderness present in right lower back Assessment/plan SHANNON on CKD, history of renal transplant Hyponatremia likely due to SHANNON Hypocalcemia, rule out tumor lysis syndrome COVID-19 infection Nephrology consulted; recommend IV hydration with NS at 125 cc/h. 2 g of calcium given in the ED; obtain uric acid, phosphorus, urine lytes and renal ultrasound. BMP every 4 hours -Continue on empiric Zosyn and doxycycline for pneumonia -Hold antihypertensives -Patient to be transferred to [facility] when bed is available. (1) Anemia Anemia type: unspecified type Qualified Code(s): D64.9 - Anemia, unspecified (2) HTN (hypertension) Hypertension type: unspecified Qualified Code(s): I10 - Essential (primary) hypertension
--- NOTE | 2022-03-08 16:59 | Electrocardiogram Report ---
Test Reason : Blood Pressure : / mmHG Vent. Rate : 098 BPM Atrial Rate : 098 BPM P-R Int : 178 ms QRS Dur : 094 ms QT Int : 396 ms P-R-T Axes : 019 -06 011 degrees QTc Int : 505 ms Normal sinus rhythm Possible Left atrial enlargement Left ventricular hypertrophy Poor R wave progression, consider anterior VT vs. lead placement vs. LVH Prolonged QT Abnormal ECG When compared with ECG of 20-AUG-2017 19:25, Vent. rate has increased BY 32 BPM QT has lengthened Confirmed by Graham Ordaz ([id number]) on 03/08/2022 4:58:47 PM Referred By: Confirmed By:Graham Ordaz
--- NOTE | 2022-03-08 17:36 | Emergency Department Note ---
Impression & Plan Pneumonia due to COVID-19 virus, Multiple myeloma, CKD (chronic kidney disease), stage IV, Renal transplant recipient, Pathological fracture, Nausea & vomiting, Acute dehydration ED Provider Note NAME: ANTONIA SARAH AGE: 66 SEX: F : 1955 ARRIVES VIA: Ambulance INFORMANT: [Patient][, ] ED PROVIDER(S): [Slim Bajwa MD] Chief Complaint: Back pain, cough, n/v HPI: Patient presents due to concern for cough and back pain. The patient states that this initially began after receiving chemo on Sunday. Patient does have a history of multiple myeloma and renal transplant. Patient denies any chest pains or shortness of breath but has had concomitant nonproductive cough. Patient denies any known sick contacts or recent travel. Patient states that she has had significant cough which is worsened her back pain. No recent falls or trauma. Patient was recently seen in the department and did have pathologic fractures secondary to multiple myeloma in the back. Patient denies any bowel or bladder incontinence or saddle anesthesia. No weakness of the bilateral lower extremities. Patient's had decreased p.o. intake and decreased urine output. She states that she has had some associated nausea and vomiting no blood in the vomit. Patient denies any dysuria or blood in the urine or stool. Patient has had a recent bowel movement. ROS: See HPI for pertinent positives and negatives. A total of 10 systems were reviewed and otherwise negative. Past medical history: See below Surgical history: See below Social history: See below Physical Exam: GENERAL: Moderately ill in apperance. EYE EXAM: Normal conjunctiva. PERRL, no anisocoria and EOM's grossly intact w/o pain. NECK: Supple, no nuchal rigidity, no adenopathy, non-tender. No signs of meningismus. FROM of the neck with good chin to chest and neck extension. No stridor. LUNGS: Clear to auscultation. Normal chest wall mechanics. HEART: Tachycardic and regular, no MRG. ABDOMEN: Abdomen soft, non-tender, normo-active bowel sounds, no masses, no rebound or guarding. BACK: Midliine lower T spine pain. SKIN: No rashes and no bruising. UPPER EXTREMITIES: Upper extremities are grossly normal. LOWER EXTREMITIES: Grossly normal, no edema. NEURO EXAM: A&O x3, cranial nerves II-XII grossly intact, normal speech, moves all 4 extremities. No sensory deficits, no saddle anesthesia. Differential diagnoses: Reactive airway disease, pneumonia, pneumothorax, COPD, CHF, infections, cardiac ischemia, pulmonary embolism, musculoskeletal, gastrointestinal, as well as other pathologies. Musculoskeletal, disc herniation, fracture, metastatic disease, cord compression, discitis, sciatica, cauda equina, infection, aortic disease, renal colic, gastrointestinal, as well as other pathologies. Course: Patient was seen and evaluated the bedside. Full history physical exam was performed. EKG interpreted by me Normal sinus rhythm, rate of 98, prolonged QTc. Imaging Studies: See Below Cardiac monitoring: An order was placed for continuous cardiac monitoring. The monitor shows a rate of 102 with tachycardic and regular rhythm. MDM: Patient was seen due to concern for back pain and cough. Blood work was obtained along with blood cultures and lactate the patient was ordered IV fluids and empiric antibiotics given the patient's prior history of renal transplant chemotherapy and chronic immunosuppression. The patient's blood work showed a white count of 2.3 hemoglobin of 8.5 and platelet count of 105. The patient does have significant kidney dysfunction with a creatinine of 6.7. Patient does have an anion gap of 16 with a BUN of 69. Patient does have significantly low calcium at less than 5 and low magnesium at 1.2. Patient was ordered some additional IV fluids calcium and mag for replacement. CT shows pathologic T11 frx likely 2/2 to coughing and causing patient's back pain. Patient COVID+. Infectious findings at b/l bases of lungs. I did initiate a transfer to [facility] given the patient's signi ficant past medical comorbidities and transplant history. I did speak with triage physician at [facility] in [place] who stated that the patient would be accepted but will be placed on the list as they do not have any current bed availability. Patient will be admitted to [facility] at this time. I did speak with on-call carpenter inspector Dr. Argueta. He recommended every 4 to 6-hour CHEM panel and adding additional electrolytes urine and serum awesome's in addition to starting the patient on normal saline 125 an hour. She also recommended monitoring strict I's and O's. Subsequently did speak with the on- call hospitalist Augusto Henning PA-C and the patient was admitted by The patient CT does show concern for new T11 pathologic. Past Med/Surg History Medical History C3 glomerulonephritis DM II (diabetes mellitus, type II), controlled ESRD (end stage renal disease) HTN (hypertension) Multiple myeloma Pathological fracture Renal transplant recipient Surgical History Hx of kidney transplant S/P ACL repair S/P hemorrhoidectomy Family History Father Cancer Brother Kidney disease Glioblastoma Heart disease Diabetes MDS (myelodysplastic syndrome) Prostate cancer Mother Autoimmune hepatitis Social History Smoking Status: Never smoker Hx Alcohol Use: No Hx Substance Use: No Preferred Language: Wolof Communication Ability: Effective Radial Drill Press Set Up Operator Required: No Beliefs That Will Affect Care: None Current Living Situation: Spouse Feels Safe at Home: Yes Safety Concerns: Feels Safe At This Time Assistive Devices: None Allergies Allergies Allergy/AdvReac Type Severity Reaction Status Date / Time No Known Allergies Allergy Verified 03/06/22 11:10 Home Meds Home Medications Medication Instructions Recorded Confirmed acyclovir 400 mg tablet 400 mg PO TID 02/14/22 03/08/22 allopurinol 300 mg tablet 150 mg PO QAM 02/14/22 03/08/22 amlodipine 5 mg tablet 5 mg PO QPM 02/14/22 03/08/22 aspirin 81 mg tablet,delayed 81 mg PO DAILY 02/14/22 03/08/22 release atorvastatin 40 mg tablet 40 mg PO QAM 02/14/22 03/08/22 carvedilol 12.5 mg tablet 12.5 mg PO BIDM 02/14/22 03/08/22 cyclophosphamide 50 mg capsule 650 mg PO WK 02/14/22 03/08/22 dexamethasone 4 mg tablet 40 mg PO WK 02/14/22 03/08/22 dulaglutide 3 mg/0.5 mL 3 mg subcut WK 02/14/22 03/08/22 subcutaneous [facility] omeprazole 20 mg tablet,delayed 20 mg PO QAM 02/14/22 03/08/22 release ondansetron HCl 8 mg tablet 8 mg PO QAM 02/14/22 03/08/22 prednisone 5 mg tablet 5 mg PO DAILY 02/14/22 03/08/22 prochlorperazine maleate 10 mg 10 mg PO Q6H PRN NAUSEA/VOMITING 02/14/22 03/08/22 tablet tacrolimus 1 mg tablet,extended 2 mg PO QAM 02/14/22 03/08/22 release 24 hr (Envarsus XR) tramadol 50 mg tablet 50 mg PO Q6H PRN Pain 02/14/22 03/08/22 dulaglutide 3 mg/0.5 mL 3 mg subcut WK 03/08/22 03/08/22 subcutaneous pen injector (Trulicity) ergocalciferol (vitamin D2) 1,250 1,250 mcg PO Q4WK 03/08/22 03/08/22 mcg (50,000 unit) capsule (Vitamin D2) Results & Data (ED) Vital Signs Vital Signs - 24 hr 03/08/22 13:45 03/08/22 13:45 03/08/22 14:18 Temperature 36.7 C 36.7 C Temperature Source Oral Oral Pulse Rate 102 H Pulse Rate [Apical] 102 H Pulse Rhythm Regular Pulse Rhythm [Apical] Regular Pulse Strength Normal Pulse Strength [Apical] Normal Respiratory Rate 20 20 Respiratory Effort / Characteristics Non-Labored Spontaneous Respiratory Depth Normal Normal Respiratory Pattern Regular Blood Pressure 91/54 L Blood Pressure [Right Arm] 91/54 L Blood Pressure Mean 66 Blood Pressure Mean [Right Arm] 66 Blood Pressure Position [Right Arm] Pulse Oximetry 96 96 94 Oxygen Delivery Method Room Air Room Air Room Air Sepsis Recent Fever Within 48 Hours No Sepsis New/Unexplained Change in Mental Status No Sepsis Action Taken by Nursing No Action Required 03/08/22 14:13 03/08/22 14:28 03/08/22 14:43 Temperature Temperature Source Pulse Rate Pulse Rate [Apical] 99 H 98 H 96 H Pulse Rhythm Pulse Rhythm [Apical] Regular Regular Regular Pulse Strength Pulse Strength [Apical] Normal Normal Normal Respiratory Rate 18 14 18 Respiratory Effort / Characteristics Non-Labored Non-Labored Non-Labored Respiratory Depth Normal Normal Normal Respiratory Pattern Regular Regular Regular Blood Pressure Blood Pressure [Right Arm] 92/59 L 128/80 117/81 Blood Pressure Mean Blood Pressure Mean [Right Arm] 70 96 93 Blood Pressure Position [Right Arm] Pulse Oximetry 94 95 96 Oxygen Delivery Method Room Air Room Air Room Air Sepsis Recent Fever Within 48 Hours Sepsis New/Unexplained Change in Mental Status Sepsis Action Taken by Nursing 03/08/22 15:28 03/08/22 15:58 Temperature Temperature Source Pulse Rate Pulse Rate [Apical] 96 H 93 H Pulse Rhythm Pulse Rhythm [Apical] Regular Regular Pulse Strength Pulse Strength [Apical] Normal Normal Respiratory Rate 20 20 Respiratory Effort / Characteristics Non-Labored Non-Labored Respiratory Depth Normal Normal Respiratory Pattern Regular Regular Blood Pressure Blood Pressure [Right Arm] 117/78 115/73 Blood Pressure Mean Blood Pressure Mean [Right Arm] 91 87 Blood Pressure Position [Right Arm] Lying Lying Pulse Oximetry 95 95 Oxygen Delivery Method Room Air Room Air Sepsis Recent Fever Within 48 Hours Sepsis New/Unexplained Change in Mental Status Sepsis Action Taken by Skilled Nursing Medications Current Medication List: was personally reviewed by me Laboratory Data Attestation: I reviewed the patient's lab results. Result diagrams: 03/09/22 07:19 03/09/22 07:19 Lab Results 03/08/22 03/08/22 03/08/22 Range/Units 13:40 13:40 13:40 WBC 2.37 L (4.8-10.8) K/ul RBC 2.81 L (3.93-5.22) M/uL Hgb 8.5 L (12.0-16.0) g/dl Hct 23.9 L (34.1-44.9) % MCV 85.1 (80.0-100.0) fL MCH 30.2 (25.0-34.0) pg MCHC 35.6 (32.0-36.0) g/dL RDW Std Deviation 45.1 (36.4-46.3) fL RDW Coeff of [place] 14.6 H (11.5-14.5) % Plt Count 105 L (130-400) K/uL MPV 12.2 (9.4-12.3) fL Sodium 125 L (136-145) mmol/L Potassium 3.5 (3.5-5.1) mmol/L Chloride 93 L (98-107) mmol/L Carbon Dioxide 16 L (21-32) mmol/L Anion Gap 16 H (3-11) BUN 69 H (6-23) mg/dl Creatinine 6.70 H* (0.6-1.2) mg/dl Est Cr Clr Drug Dosing 9.5 ml/min Est GFR ( Amer) 6.8 ml/min Est GFR (Non-Af Amer) 5.8 ml/min BUN/Creatinine Ratio 10.3 (10-20) Glucose 160 H (70-99(Fasting)) mg/dl Estimat Average Glucose mg/dl Hemoglobin A1c (4.5-5.6) % Osmolality (280-300) mOsm/kg Lactate (0.4-2.0) mmol/L Uric Acid (2.6-7.2) mg/dl Calcium 4.9 L* (8.5-10.1) mg/dl Ionized Calcium (1.12-1.32) mmol/L Phosphorus (2.5-4.9) mg/dl Magnesium 1.2 L (1.7-2.4) mg/dl Total Bilirubin 0.9 (0.2-1.0) mg/dl Direct Bilirubin 0.1 (0-0.2) mg/dl AST 14 (13-39) U/L ALT 13 (7-52) U/L Alkaline Phosphatase 50 (34-104) U/L Lactate Dehydrogenase (86-244) U/L Total Creatine Kinase (26-192) U/L Troponin I High Sens 13.4 (0-14) pg/ml Total Protein 9.1 H (6.0-8.3) gm/dl Albumin 3.1 L (3.4-5.0) gm/dl Procalcitonin 1.66 H (0-0.5) ng/ml Adenovirus (PCR) (NotDetected) B. pertussis DNA (PCR) (NotDetected) B.parapertussis DNA PCR (NotDetected) C. pneumoniae DNA (PCR) (NotDetected) Coronavirus OC43 (PCR) (NotDetected) Coronavirus HKU1 (PCR) (NotDetected) Coronavirus 229E (PCR) (NotDetected) SARS-CoV-2 (PCR) (NotDetected) Coronavirus NL63 (PCR) (NotDetected) Human Metapneumovir PCR (NotDetected) Influenza Type A (PCR) (NotDetected) Influenza Type B (PCR) (NotDetected) M. pneumoniae (PCR) (NotDetected) Parainfluenza 1 (PCR) (NotDetected) Parainfluenza 2 (PCR) (NotDetected) Parainfluenza 3 (PCR) (NotDetected) Parainfluenza 4 (PCR) (NotDetected) RSV (PCR) (NotDetected) Entero/Rhino (PCR) (NotDetected) 03/08/22 03/08/22 03/08/22 Range/Units 13:40 14:23 14:31 WBC (4.8-10.8) K/ul RBC (3.93-5.22) M/uL Hgb (12.0-16.0) g/dl Hct (34.1-44.9) % MCV (80.0-100.0) fL MCH (25.0-34.0) pg MCHC (32.0-36.0) g/dL RDW Std Deviation (36.4-46.3) fL RDW Coeff of Chelsea (11.5-14.5) % Plt Count (130-400) K/uL MPV (9.4-12.3) fL Sodium (136-145) mmol/L Potassium (3.5-5.1) mmol/L Chloride (98-107) mmol/L Carbon Dioxide (21-32) mmol/L Anion Gap (3-11) BUN (6-23) mg/dl Creatinine (0.6-1.2) mg/dl Est Cr Clr Drug Dosing ml/min Est GFR ( Amer) ml/min Est GFR (Non-Af Amer) ml/min BUN/Creatinine Ratio (10-20) Glucose (70-99(Fasting)) mg/dl Estimat Average Glucose 220 mg/dl Hemoglobin A1c 9.3 H (4.5-5.6) % Osmolality (280-300) mOsm/kg Lactate 1.6 (0.4-2.0) mmol/L Uric Acid (2.6-7.2) mg/dl Calcium (8.5-10.1) mg/dl Ionized Calcium (1.12-1.32) mmol/L Phosphorus (2.5-4.9) mg/dl Magnesium (1.7-2.4) mg/dl Total Bilirubin (0.2-1.0) mg/dl Direct Bilirubin (0-0.2) mg/dl AST (13-39) U/L ALT (7-52) U/L Alkaline Phosphatase (34-104) U/L Lactate Dehydrogenase (86-244) U/L Total Creatine Kinase (26-192) U/L Troponin I High Sens (0-14) pg/ml Total Protein (6.0-8.3) gm/dl Albumin (3.4-5.0) gm/dl Procalcitonin (0-0.5) ng/ml Adenovirus (PCR) Not Detected (NotDetected) B. pertussis DNA (PCR) Not Detected (NotDetected) B.parapertussis DNA PCR Not Detected (NotDetected) C. pneumoniae DNA (PCR) Not Detected (NotDetected) Coronavirus OC43 (PCR) Not Detected (NotDetected) Coronavirus HKU1 (PCR) Not Detected (NotDetected) Coronavirus 229E (PCR) Not Detected (NotDetected) SARS-CoV-2 (PCR) DETECTED A* (NotDetected) Coronavirus NL63 (PCR) Not Detected (NotDetected) Human Metapneumovir PCR Not Detected (NotDetected) Influenza Type A (PCR) Not Detected (NotDetected) Influenza Type B (PCR) Not Detected (NotDetected) M. pneumoniae (PCR) Not Detected (NotDetected) Parainfluenza 1 (PCR) Not Detected (NotDetected) Parainfluenza 2 (PCR) Not Detected (NotDetected) Parainfluenza 3 (PCR) Not Detected (NotDetected) Parainfluenza 4 (PCR) Not Detected (NotDetected) RSV (PCR) Not Detected (NotDetected) Entero/Rhino (PCR) Not Detected (NotDetected) 03/08/22 03/08/22 03/08/22 Range/Units 17:03 17:03 17:03 WBC (4.8-10.8) K/ul RBC (3.93-5.22) M/uL Hgb (12.0-16.0) g/dl Hct (34.1-44.9) % MCV (80.0-100.0) fL MCH (25.0-34.0) pg MCHC (32.0-36.0) g/dL RDW Std Deviation (36.4-46.3) fL RDW Coeff of Chelsea (11.5-14.5) % Plt Count (130-400) K/uL MPV (9.4-12.3) fL Sodium 127 L (136-145) mmol/L Potassium 3.6 (3.5-5.1) mmol/L Chloride 97 L (98-107) mmol/L Carbon Dioxide 14 L (21-32) mmol/L Anion Gap 16 H (3-11) BUN 67 H (6-23) mg/dl Creatinine 6.21 H* D (0.6-1.2) mg/dl Est Cr Clr Drug Dosing 10.2 ml/min Est GFR ( Amer) 7.4 ml/min Est GFR (Non-Af Amer) 6.4 ml/min BUN/Creatinine Ratio 10.8 (10-20) Glucose 141 H (70-99(Fasting)) mg/dl Estimat Average Glucose mg/dl Hemoglobin A1c (4.5-5.6) % Osmolality 288 (280-300) mOsm/kg Lactate (0.4-2.0) mmol/L Uric Acid (2.6-7.2) mg/dl Calcium 5.2 L* (8.5-10.1) mg/dl Ionized Calcium 0.67 L* (1.12-1.32) mmol/L Phosphorus (2.5-4.9) mg/dl Magnesium (1.7-2.4) mg/dl Total Bilirubin (0.2-1.0) mg/dl Direct Bilirubin (0-0.2) mg/dl AST (13-39) U/L ALT (7-52) U/L Alkaline Phosphatase (34-104) U/L Lactate Dehydrogenase (86-244) U/L Total Creatine Kinase (26-192) U/L Troponin I High Sens (0-14) pg/ml Total Protein (6.0-8.3) gm/dl Albumin (3.4-5.0) gm/dl Procalcitonin (0-0.5) ng/ml Adenovirus (PCR) (NotDetected) B. pertussis DNA (PCR) (NotDetected) B.parapertussis DNA PCR (NotDetected) C. pneumoniae DNA (PCR) (NotDetected) Coronavirus OC43 (PCR) (NotDetected) Coronavirus HKU1 (PCR) (NotDetected) Coronavirus 229E (PCR) (NotDetected) SARS-CoV-2 (PCR) (NotDetected) Coronavirus NL63 (PCR) (NotDetected) Human Metapneumovir PCR (NotDetected) Influenza Type A (PCR) (NotDetected) Influenza Type B (PCR) (NotDetected) M. pneumoniae (PCR) (NotDetected) Parainfluenza 1 (PCR) (NotDetected) Parainfluenza 2 (PCR) (NotDetected) Parainfluenza 3 (PCR) (NotDetected) Parainfluenza 4 (PCR) (NotDetected) RSV (PCR) (NotDetected) Entero/Rhino (PCR) (NotDetected) 03/08/22 03/08/22 Range/Units 17:03 17:03 WBC (4.8-10.8) K/ul RBC (3.93-5.22) M/uL Hgb (12.0-16.0) g/dl Hct (34.1-44.9) % MCV (80.0-100.0) fL MCH (25.0-34.0) pg MCHC (32.0-36.0) g/dL RDW Std Deviation (36.4-46.3) fL RDW Coeff of Chelsea (11.5-14.5) % Plt Count (130-400) K/uL MPV (9.4-12.3) fL Sodium (136-145) mmol/L Potassium (3.5-5.1) mmol/L Chloride (98-107) mmol/L Carbon Dioxide (21-32) mmol/L Anion Gap (3-11) BUN (6-23) mg/dl Creatinine (0.6-1.2) mg/dl Est Cr Clr Drug Dosing ml/min Est GFR ( Amer) ml/min Est GFR (Non-Af Amer) ml/min BUN/Creatinine Ratio (10-20) Glucose (70-99(Fasting)) mg/dl Estimat Average Glucose mg/dl Hemoglobin A1c (4.5-5.6) % Osmolality (280-300) mOsm/kg Lactate (0.4-2.0) mmol/L Uric Acid 7.0 (2.6-7.2) mg/dl Calcium (8.5-10.1) mg/dl Ionized Calcium (1.12-1.32) mmol/L Phosphorus 4.4 (2.5-4.9) mg/dl Magnesium (1.7-2.4) mg/dl Total Bilirubin (0.2-1.0) mg/dl Direct Bilirubin (0-0.2) mg/dl AST (13-39) U/L ALT (7-52) U/L Alkaline Phosphatase (34-104) U/L Lactate Dehydrogenase 279 H (86-244) U/L Total Creatine Kinase 34 (26-192) U/L Troponin I High Sens (0-14) pg/ml Total Protein (6.0-8.3) gm/dl Albumin (3.4-5.0) gm/dl Procalcitonin (0-0.5) ng/ml Adenovirus (PCR) (NotDetected) B. pertussis DNA (PCR) (NotDetected) B.parapertussis DNA PCR (NotDetected) C. pneumoniae DNA (PCR) (NotDetected) Coronavirus OC43 (PCR) (NotDetected) Coronavirus HKU1 (PCR) (NotDetected) Coronavirus 229E (PCR) (NotDetected) SARS-CoV-2 (PCR) (NotDetected) Coronavirus NL63 (PCR) (NotDetected) Human Metapneumovir PCR (NotDetected) Influenza Type A (PCR) (NotDetected) Influenza Type B (PCR) (NotDetected) M. pneumoniae (PCR) (NotDetected) Parainfluenza 1 (PCR) (NotDetected) Parainfluenza 2 (PCR) (NotDetected) Parainfluenza 3 (PCR) (NotDetected) Parainfluenza 4 (PCR) (NotDetected) RSV (PCR) (NotDetected) Entero/Rhino (PCR) (NotDetected) Administered Medications Acyclovir (Acyclovir 400 Mg Tab) 400 mg PO TID [place] Stop: 04/07/22 20:59 Last Admin: 03/09/22 09:05 Dose: 400 mg Documented By: Admin: 03/08/22 21:36 Dose: 400 mg Documented By: CLC Allopurinol (Allopurinol 300 Mg Tab) 150 mg PO QAM [place] Stop: 04/08/22 08:59 Last Admin: 03/09/22 09:03 Dose: 150 mg Documented By: ENS Aspirin (Aspirin 81 Mg Ectab) 81 mg PO DAILY [place] Stop: 04/08/22 08:59 Last Admin: 03/09/22 09:06 Dose: 81 mg Documented By: ENS Atorvastatin Calcium (Atorvastatin 40 Mg Tab) 40 mg PO QAM [place] Stop: 04/08/22 08:59 Last Admin: 03/09/22 09:05 Dose: 40 mg Documented By: ENS Sodium Chloride (Nss) 500 mls @ 75 mls/hr IV .Q6H40M [place] Stop: 04/07/22 16:44 Last Admin: 03/09/22 09:09 Dose: 75 mls/hr Documented By: Infusion: 03/09/22 08:42 Dose: 0 mls/hr Documented By: Admin: 03/09/22 04:03 Dose: 125 mls/hr Documented By: Infusion: 03/09/22 03:53 Dose: 125 mls/hr Documented By: Admin: 03/08/22 23:53 Dose: 125 mls/hr Documented By: Infusion: 03/08/22 22:01 Dose: 125 mls/hr Documented By: Admin: 03/08/22 18:01 Dose: 125 mls/hr Documented By: RSL Piperacillin Sod/Tazobactam (Sod 3.375 gm/ Dextrose) 115 mls @ 28.75 mls/hr IV Q12H [facility]; Protocol Stop: 03/16/22 00:00 Last Infusion: 03/09/22 04:44 Dose: 0 mls/hr Documented By: Admin: 03/09/22 00:41 Dose: 28.8 mls/hr Documented By: CLC Doxycycline Hyclate 100 mg/ (Dextrose) 110 mls @ 50 mls/hr IV Q12H [facility] Stop: 03/15/22 19:14 Last Admin: 03/09/22 08:56 Dose: 50 mls/hr Documented By: Infusion: 03/08/22 23:49 Dose: 0 mls/hr Documented By: Admin: 03/08/22 21:36 Dose: 50 mls/hr Documented By: CLC Magnesium Sulfate/Dextrose (Magnesium Sulfate / D5w) 1 gm in 100 mls @ 50 mls/hr IV Q2H [place] Stop: 03/09/22 14:29 Last Admin: 03/09/22 08:59 Dose: 50 mls/hr Documented By: ENS Insulin Aspart (Insulin Aspart Per Unit) 0 units SC ACHS [place] Stop: 04/07/22 20:59 Last Admin: 03/09/22 09:15 Dose: Not Given Documented By: Admin: 03/08/22 21:24 Dose: Not Given Documented By: CLC Pantoprazole Sodium (Pantoprazole 40 Mg Tab) 40 mg PO QAM [place]; Protocol Stop: 04/08/22 08:59 Last Admin: 03/09/22 09:05 Dose: 40 mg Documented By: ENS Prednisone (Prednisone 5 Mg Tab) 5 mg PO DAILY [place] Stop: 04/08/22 08:59 Last Admin: 03/09/22 09:06 Dose: 5 mg Documented By: ENS Discontinued Medications Heparin Sodium (Porcine) (Heparin Sod 5,000 Unit/0.5 Ml Vial) 7,500 units SQ Q8 [place] Stop: 04/07/22 21:59 Last Admin: 03/09/22 05:21 Dose: 7,500 units Documented By: Admin: 03/08/22 21:37 Dose: 7,500 units Documented By: CLC Sodium Chloride (Nss 1000ml) 1,000 mls @ 999 mls/hr IV .Q1H1M [place] Stop: 03/08/22 15:15 Last Infusion: 03/08/22 15:16 Dose: 0 mls/hr Documented By: Admin: 03/08/22 14:21 Dose: 999 mls/hr Documented By: OAM Piperacillin Sod/Tazobactam Sod (Zosyn) 4.5 gm in 120 mls @ 240 mls/hr IV NOW ONE Stop: 03/08/22 14:43 Last Infusion: 03/08/22 15:50 Dose: 0 mls/hr Documented By: Admin: 03/08/22 15:20 Dose: 240 mls/hr Documented By: RSL Sodium Chloride (Nss 1000ml) 500 mls @ 999 mls/hr IV .Q31M ONE Stop: 03/08/22 16:28 Last Infusion: 03/08/22 16:34 Dose: 0 mls/hr Documented By: Admin: 03/08/22 16:09 Dose: 999 mls/hr Documented By: RSL Calcium Gluconate () 1,000 mg in 60 mls @ 240 mls/hr IV Q15M [place] Stop: 03/08/22 16:29 Last Infusion: 03/08/22 17:32 Dose: 0 mls/hr Documented By: Admin: 03/08/22 16:33 Dose: 240 mls/hr Documented By: Infusion: 03/08/22 16:33 Dose: 0 mls/hr Documented By: Admin: 03/08/22 16:08 Dose: 240 mls/hr Documented By: RSL Magnesium Sulfate/Dextrose (Magnesium Sulfate / D5w) 1 gm in 100 mls @ 100 mls/hr IV NOW STA Stop: 03/08/22 17:14 Last Infusion: 03/08/22 19:35 Dose: 0 mls/hr Documented By: Admin: 03/08/22 18:01 Dose: 100 mls/hr Documented By: RSL Sodium Chloride (Nss 1000ml) 500 mls @ 999 mls/hr IV .Q31M ONE Stop: 03/08/22 17:10 Last Admin: 03/08/22 17:32 Dose: Not Given Documented By: RSL Calcium Gluconate 2,000 mg/ (Dextrose) 70 mls @ 240 mls/hr IV ONE ONE Stop: 03/08/22 22:17 Last Infusion: 03/08/22 21:58 Dose: 0 mls/hr Documented By: Admin: 03/08/22 21:33 Dose: 240 mls/hr Documented By: CLC Calcium Gluconate 2,000 mg/ (Dextrose) 70 mls @ 240 mls/hr IV 0000 ONE Stop: 03/09/22 00:17 Last Infusion: 03/09/22 00:30 Dose: 0 mls/hr Documented By: Admin: 03/09/22 00:00 Dose: 240 mls/hr Documented By: CLC Metoclopramide HCl (Metoclopramide Hcl Inj 5 Mg/Ml 2 Ml Vial) 10 mg IV NOW STA Stop: 03/08/22 15:41 Last Admin: 03/08/22 15:44 Dose: 10 mg Documented By: RSL Morphine Sulfate (Morphine Sulfate 4 Mg/Ml 1 Ml Carp\Vial) 4 mg IV NOW STA Stop: 03/08/22 14:15 Last Admin: 03/08/22 14:21 Dose: 4 mg Documented By: OAM Ondansetron HCl (Ondansetron Inj 2 Mg/Ml 2 Ml Vial) 4 mg IV Q4H PRN PRN Reason: Nausea And Vomiting Stop: 04/07/22 18:44 Last Admin: 03/08/22 21:47 Dose: 4 mg Documented By: CLC Imaging Data Radiologist's Impression: Chest X-Ray 03/08/22 14:13 SINGLE VIEW CHEST CLINICAL HISTORY: Sepsis. FINDINGS: 2 AP, portable, upright chest radiographs are compared to study dated 08/22/2017. The heart is mildly enlarged. The pulmonary vasculature is noncongested. Atelectasis is noted at the lung bases. The lungs and pleural spaces are otherwise clear. No pneumothorax is seen. The skeletal structures are osteopenic. The bony thorax is grossly intact. IMPRESSION: Mild cardiomegaly with no active disease in the chest. ACT 112: Negative or not required by law. Electronically signed by: Suleman Nicole M.D. 03/08/2022 2:48 PM Abdomen/Pelvis CT 03/08/22 14:14 CT OF THE ABDOMEN AND PELVIS WITHOUT CONTRAST CLINICAL HISTORY: back pain, renal trx, cough, h/o multiple myeloma COMPARISON STUDY: CT of the abdomen and pelvis February 14, 2022. TECHNIQUE: Axial images of the abdomen and pelvis were obtained without IV contrast. Images were reviewed in the axial, sagittal, and coronal planes. Automated exposure control was utilized for the study. A dose lowering technique was utilized adhering to the principles of ALARA. FINDINGS: There has been interval development of mild multifocal ground glass opacities within the lower lungs since CT of February 14, 2022. No pneumatosis, free air or portal venous gas is present. Evaluation of the abdomen and pelvis is suboptimal on this unenhanced exam. Size of the spleen is at the upper limits of normal. Unenhanced images of the liver and adrenal glands are unremarkable. A 1.3 cm cystic lesion within the pancreatic body on image 87 of [id number] is again noted. There is no pancreatic ductal dilatation. This is suboptimally assessed on this unenhanced exam. No peripancreatic stranding is present. Gallbladder is moderately distended. There is no adjacent stranding. Both [place] kidneys are atrophic. Right lower quadrant renal allograft is noted. There is no perigraft fluid collection. There is no graft hydronephrosis. There is subtle stranding within the right renal sinus with possible urothelial thickening. No evidence for a bowel obstruction. The appendix is normal. Calcified fibroid is incidentally noted. 3.3 cm cystic lesion within the left ovary is noted. This is unchanged. Lytic skeletal lesions are again noted. Pathologic fractures, likely subacute, of T12, L1, L3 and L4 are noted. There has been interval increase in vertebral body height loss of the T12 and L1 vertebral body since prior CT. A T11 pathologic fracture is new since prior CT of February 14, 2022. Trace gas within the bladder may be related to instrumentation. IMPRESSION: 1. Interval development of mild patchy airspace opacities within the lower lungs since prior abdominal CT. The findings suggest an infectious process. 2. No bowel obstruction. No bowel wall thickening on unenhanced exam. 3. Interval development of a T11 pathologic fracture since CT of February 14, 2022. This is likely acute. Redemonstration of T12, L1, L3 and L4 pathologic fractures, as above. Redemonstration of lytic skeletal lesions consistent with myeloma. 4. Moderate gallbladder distention. No adjacent stranding. This could be correlated with right upper quadrant pain and ultrasound if indicated. 5. Nonspecific mild urothelial thickening of the right lower quadrant renal allograft which could be correlated with urinalysis. 6. No change in a 1.3 cm cystic lesion within the pancreatic body. This may reflect a side branch IPMN. One year follow CT is recommended to ensure stability. 7. No change in a 3.3 cm cystic lesion within the left ovary. This is probably benign although abnormal in a postmenopausal patient. This can be assessed with a nonemergent pelvic ultrasound. ACT 112: Negative or not required by law. Electronically signed by: César Queen M.D. 03/08/2022 3:18 PM Discharge Plan Visit Data Chief Complaint: Back Injury/Pain Stated Complaint: ILLNESS, BACK PAIN, COUGH ED Provider: Slim Bajwa Discharge Problem: Pneumonia due to COVID-19 virus, Multiple myeloma, CKD (chronic kidney disease), stage IV, Renal transplant recipient, Pathological fracture, Nausea & vomiting, Acute dehydration Patient Disposition: Admitted As Inpatient Discharge Instructions Interventions: ED Discharge Assessment Last Done: 03/08/22 18:29
[2022-03-08 17:58] LABS: BUN Creatinine Ratio 10.8 (10-20); Calcium 5.2 mg/dl (8.5-10.1); Creatinine Clr Calc Pharmacy 10.2 ml/min; Est GFR (African American) 7.4 ml/min; Est GFR (Non-African American) 6.4 ml/min; Potassium 3.6 mmol/L (3.5-5.1)
[2022-03-08] MEDS: SODIUM CHLORIDE 0.9% 500 ML IV SCH ×2 (18:01→23:53)
[2022-03-08 18:12] LABS: Phosphorus 4.4 mg/dl (2.5-4.9)
[2022-03-08 18:26] LABS: Appearance Urine Cloudy (Clear); Bacteria Urine Automated 2+ (Negative); Bilirubin Urine Negative (Negative); Blood Urine 3+ (Negative); Cast Urine Automated 0 /lpf (0-5); Color Urine Red; Epithelial Cell Urine Auto 0-5 /lpf (0-5); Glucose Urine UA Negative (Negative); Ketones Urine Negative (Negative); Leukocyte Esterase Urine 2+ (Negative); Nitrite Urine Negative (Negative); Protein Urine 3+ (Negative); Specific Gravity Urine 1.012 (1.000-1.030); Urobilinogen Urine Negative (Negative); WBC Urine Automated >30 /hpf (0-5)
[2022-03-08] MEDS ORDERED: DEXTROSE 50% 50 ML SYRINGE IV PRN (18:45)
[2022-03-08] MEDS ORDERED: ONDANSETRON INJ 2 MG/ML 2 ML VIAL IV PRN (18:45)
[2022-03-08] MEDS ORDERED: GLUCAGON FOR INJ 1 MG VIAL SQ PRN (18:45)
[2022-03-08] MEDS ORDERED: STAT IV STA ×2 (18:45→23:32)
[2022-03-08] MEDS ORDERED: ALBUT/IPRATROP 3MG/0.5MG NEB 3 ML VIAL NEB PRN (18:45)
[2022-03-08] MEDS ORDERED: CARBOHYDRATES FOR HYPOGLYCEMIA PO PRN (18:45)
[2022-03-08] MEDS ORDERED: GLUCOSE 40% GEL 15 GM TUBE PO PRN (18:45)
[2022-03-08] MEDS ORDERED: PROCHLORPERAZINE MALEATE 10 MG TAB PO PRN (18:45)
[2022-03-08] MEDS ORDERED: GLUCOSE 10 TAB/TUBE PO PRN (18:45)
[2022-03-08] MEDS ORDERED: traMADol HCL 50 MG TABLET PO PRN (18:45)
[2022-03-08] MEDS ORDERED: guaiFENesin/CODEINE 100MG/10MG 5ML UDC PO PRN (18:45)
--- NOTE | 2022-03-08 21:14 | Ultrasound Report ---
RENAL TRANSPLANT ULTRASOUND CLINICAL HISTORY: Jimy on CKD COMPARISON STUDY: CT of the abdomen and pelvis performed earlier today. TECHNIQUE: Grayscale, color and duplex Doppler sonography of the right lower quadrant renal allograft was performed. FINDINGS: The allograft measures 14.1 cm in maximal dimension. There is mild graft collecting system dilatation. No perigraft fluid collection is present. The renal transplant artery and vein are patent . Peak systolic velocity within the transplant artery is 201 cm/second which is within normal limits. Resistive indices within the segmental vessels of the allograft are within normal limits, ranging fr om 0.57-0.7. There is minimal layering material within the bladder. IMPRESSION: 1. Patent right lower quadrant renal allograft artery and vein. Normal resistive indices. 2. Mild allograft collecting system dilatation. No perigraft fluid collection. 3. Minimal layering material within the bladder. This could be correlated with urinalysis. ACT 112: Negative or not required by law. Electronically signed by: César Queen M.D. 03/08/2022 9:11 PM
[2022-03-08] MEDS: INSULIN ASPART PER UNIT SC SCH (21:24)
[2022-03-08] MEDS: ACYCLOVIR 400 MG TAB PO SCH (21:36)
[2022-03-08] MEDS: DOXYCYCLINE HYCLATE 100 MG in DEXTROSE 5% 100 ML IV SCH (21:36)
[2022-03-08] MEDS: HEPARIN SOD 5,000 UNIT/0.5 ML VIAL SQ SCH (21:37)
[2022-03-08] MEDS ORDERED: CALCIUM GLUCONATE 10% 2,000 MG in DEXTROSE 5% 50 ML IV ONE (22:00)
[2022-03-09] MEDS ORDERED: CALCIUM GLUCONATE 10% 2,000 MG in DEXTROSE 5% 50 ML IV ONE
[2022-03-09] MEDS: PIPERACILLIN/TAZOBACTAM 3.375 GM in DEXTROSE 5% 100 ML IV SCH ×2 (00:41→12:23)
[2022-03-09] MEDS: SODIUM CHLORIDE 0.9% 500 ML IV SCH ×2 (04:03→09:09)
[2022-03-09] MEDS: HEPARIN SOD 5,000 UNIT/0.5 ML VIAL SQ SCH (05:21)
[2022-03-09 07:45] LABS: Estimated Average Glucose 220 mg/dl; Hemoglobin A1C 9.3 % (4.5-5.6)
[2022-03-09 07:53] LABS: White Blood Count 1.99 K/ul (4.8-10.8)
--- NOTE | 2022-03-09 07:57 | Nephrology Consultation ---
Date of Consultation March 09, 2022 Assessment & Plan (1) Hypocalcemia: critical hypocalcemia slightly improved (4.9 > 5.8) in wake of xgeva therapy on 02/23 in the setting of ESRD and with concurrent hypomagnesemia; QRS is prolonged and lengthened compared to prior ECG (from 2018); phos is wnl; PTH appropriate has had 6 gm IV calcium gluconate so far, last doses at [facility] >agree w/ mag infusion for now >if she were staying would recommend calcium gluconate gtt to continue until calcium >7.5; no time for transfer yet but still imminent per RN and would not run calcium gtt on transport so instead >>>recommend stat calcium gluconate IV 4 gm q 4h until Ca > 7; OR 2gm every 4h until Ca > 8; check stat BMP/mag q 6h >D supplementation > calcitriol 0.25 mcg daily started >started calcium carbonate /OsCal 500 mg bid >>>calcium is likely to rebound and trend toward hypercalcemia; will need car eful titration of supplements at D/C (2) Acute renal failure superimposed on stage 5 chronic kidney disease, not on chronic dialysis: no indication currently for emergent dialysis but close to resuming chronic therapy - no access currently probably not oliguric; UOP improving wishes to start PD not HD when need arises; would be at [facility] under my care if/when that occurs >>change to 1/2NS at 75 mL/hour given rebound of BP (3) Renal transplant recipient: >>ensure she is receiving tac >> to bring it in today; pt verifies she is taking 2 mg qAM envarsus plus 5 mg prednisone -no point to checking FK levels here d/t long turnaround times -daily bmp (4) Multiple myeloma: on active therapy and w/ pancytopenia and pathologic fracture from this acylcovir dose >> (5) Pneumonia due to COVID-19 virus: not hypoxic; CT findings noted History of Present Illness Reason for Consultation: SHANNON on CKD in renal txplt Requesting Physician: Dr Gee Attending Physician: Aaron Gee MD History of Present Illness Medically complex 67 y/o F renal transplant pt w/ progressive allograft failure nearing need for dialysis and getting treatment for relapsed multiple myeloma whom I'm asked to see for SHANNON on CKD and hypocalcemia was admitted yesterday evening for same. She presented with severe back pain, generalized weakness, and hypotension w/ SBP in 70s at home. She was positive for covid on presentation with calcium level 4.9, creat 6.7. Other PMH includes diabetes, hypertension. Remote hx spring 2017 of recurrent PE/DVT; not on AC currently. She was first diagnosed with IgG lambda multiple myeloma in 2014. 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 She underwent donor renal transplant at [facility] in June 2018. 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 In spring 2020 she had her first treatment for relapsed multiple myeloma, 4 cycles of CyBorD completed October 2020. Evaluation at that time for amyloid was negative. She follows with both [facility] and [facility] renal transplant and hematology teams, as well as with local [facility] hematology. She was hospitalized [facility] 01/14-01/19 for a bone marrow biopsy, and initiation of treatment with IV cyclophosphamide; also needed rasburicase. She was d/c on oral cyclophosphamide and for txs with daratumumab/hyaluronidase, cyclophosphamide, and decadron. Her MM therapy was paused between 02/06 and 03/02 d/t worsening renal function and worsening anemia with UTI. She was last seen in 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 She was continued at that visit on her customary immunosuppression envarsus two mg qAM (goal trough 4-7) and prednisone 5 mg daily. Also hospitalized here 02/14-02/16 for SHANNON, hyponatremia; noted to have acute pathological fractures T12, L 1, L3, L4; 3.5 L ovarian cyst needing f/u imaging. She was transferred to [facility] where she stayed for about 24 hrs; ortho evaluated her at [facility] and no surgical intervention indicated. Her creatinine has been in the mid to high 4s since late December; pt is aware she may soon need to resume dialysis and desires PD should the need arise. She received denosumab therapy on 02/23 to treat a calcium of 11.2; noted to have Ca 6.8 on 03/02 and advised to resume her OP calcium supplements at that time. Since arrival here, she has had 4L IV fluids and has no UOP documented. She has also has serial calcium gluconate infusions as well as IV mag. Also started on zosyn, doxycycline. Her calcium this am is 5.9 with ionized calcium 0.79 (ref 1.1-1.3); creatinine 5.9. She is receiving NS at 75 ml/hr, 3 gm IV mag, and no calcium repletion currently. She has GNR in her urine and grew krishnan Se E coli on urine culture during admission here last month. She has been accepted to [facility] and is awaiting transfer pending bed availability. She feels much improved today in terms of weakness; tolerating very small amount of po; no n/v/d. Back pain ongoing but acceptable control. no edema, no sob, no cough. no pain over allograft. some decreased uop prior to admission but this is improving; urine often dark as it is today. she had envarsus yesterday AM 2 mg; none today so far > her is to bring it in today. Allergies Allergy/AdvReac Type Severity Reaction Status Date / Time No Known Allergies Allergy Verified 03/06/22 11:10 Home Medications Medication Instructions Recorded Confirmed Type acyclovir 400 mg tablet 400 mg PO TID 02/14/22 03/08/22 History allopurinol 300 mg tablet 150 mg PO QAM 02/14/22 03/08/22 History amlodipine 5 mg tablet 5 mg PO QPM 02/14/22 03/08/22 History aspirin 81 mg tablet,delayed 81 mg PO DAILY 02/14/22 03/08/22 History release atorvastatin 40 mg tablet 40 mg PO QAM 02/14/22 03/08/22 History carvedilol 12.5 mg tablet 12.5 mg PO BIDM 02/14/22 03/08/22 History cyclophosphamide 50 mg capsule 650 mg PO WK 02/14/22 03/08/22 History dexamethasone 4 mg tablet 40 mg PO WK 02/14/22 03/08/22 History dulaglutide 3 mg/0.5 mL 3 mg subcut WK 02/14/22 03/08/22 History subcutaneous pen injector (Trulicity) omeprazole 20 mg tablet,delayed 20 mg PO QAM 02/14/22 03/08/22 History release ondansetron HCl 8 mg tablet 8 mg PO QAM 02/14/22 03/08/22 History prednisone 5 mg tablet 5 mg PO DAILY 02/14/22 03/08/22 History prochlorperazine maleate 10 mg 10 mg PO Q6H PRN NAUSEA/VOMITING 02/14/22 03/08/22 History tablet tacrolimus 1 mg tablet,extended 2 mg PO QAM 02/14/22 03/08/22 History release 24 hr (Envarsus XR) tramadol 50 mg tablet 50 mg PO Q6H PRN Pain 02/14/22 03/08/22 History dulaglutide 3 mg/0.5 mL 3 mg subcut WK 03/08/22 03/08/22 History subcutaneous pen injector (Trulicity) ergocalciferol (vitamin D2) 1,250 1,250 mcg PO Q4WK 03/08/22 03/08/22 History mcg (50,000 unit) capsule (Vitamin D2) Patient History Medical History C3 glomerulonephritis DM II (diabetes mellitus, type II), controlled ESRD (end stage renal disease) HTN (hypertension) Multiple myeloma Pathological fracture Renal transplant recipient Surgical History Hx of kidney transplant S/P ACL repair S/P hemorrhoidectomy Family History Father Cancer Brother Kidney disease Glioblastoma Heart disease Diabetes MDS (myelodysplastic syndrome) Prostate cancer Mother Autoimmune hepatitis Social History Smoking Status: Never smoker Hx Alcohol Use: No Hx Substance Use: No Preferred Language: Sinhala Communication Ability: Effective Oral Surgery Assistant Required: No Beliefs That Will Affect Care: None Current Living Situation: Spouse Feels Safe at Home: Yes Safety Concerns: Feels Safe At This Time Assistive Devices: None Review of Systems Review of Systems: All systems reviewed & are unremarkable except as noted in HPI & below Physical Exam Constitutional: well developed (on RA, maneuvers readily for exam) and well nourished; no acute distress Eyes: EOM intact bilaterally ENMT: Ears: no external ear abnormality Nose: no external nose abnormality Mouth: + dry oral mucous membranes Neck: no nuchal rigidity Respiratory: normal respiratory effort and able to speak in complete sentences; no labored breathing and no cough Auscultation: + diminished lung sounds (markedly); no crackles and no wheezes Cardiovascular: Rate/Rhythm: regular rhythm and + tachycardic Extremities: no edema Gastrointestinal (Abdomen): Inspection/Auscultation: normal bowel sounds Percussion/Palpation: abdomen soft; abdomen nontender Musculoskeletal: Extremities: strength 5/5 throughout Skin: no rashes, warm and dry Neurologic: lopez, fluent speech, +BLUE tremor Psychiatric: Orientation: oriented x 3 Speech: normal rate/rhythm/volume of speech Affect: euthymic affect Genitourinary: no guerrero; 300 mL brown urine in hat at bedside Results & Data ([facility]) Vital Signs (Past 12 Hours) Vital Signs Temp Pulse Pulse Resp BP Pulse Ox O2 Del Method 03/09/22 07:38 100 H 03/09/22 07:27 37 C 106 H 18 149/82 H 92 Nasal Cannula 03/09/22 02:54 37.3 C 100 H 18 135/79 93 03/08/22 22:14 102 H 03/08/22 23:04 36.8 C 107 H 18 164/89 H 96 Room Air Laboratory Results 03/09/22 07:19 03/09/22 07:[address] a/p 1. Interval development of mild patchy airspace opacities within the lower lungs since prior abdominal CT. The findings suggest an infectious process. 2. No bowel obstruction. No bowel wall thickening on unenhanced exam. 3. Interval development of a T11 pathologic fracture since CT of February 14, 2022. This is likely acute. Redemonstration of T12, L1, L3 and L4 pathologic fractures, as above. Redemonstration of lytic skeletal lesions consistent with myeloma. 4. Moderate gallbladder distention. No adjacent stranding. This could be correlated with right upper quadrant pain and ultrasound if indicated. 5. Nonspecific mild urothelial thickening of the right lower quadrant renal allograft which could be correlated with urinalysis. 6. No change in a 1.3 cm cystic lesion within the pancreatic body. This may reflect a side branch IPMN. One year follow CT is recommended to ensure stability. 7. No change in a 3.3 cm cystic lesion within the left ovary. This is probably benign although abnormal in a postmenopausal patient. This can be assessed with a nonemergent pelvic ultrasound. renal txplt u/s 1. Patent right lower quadrant renal allograft artery and vein. Normal resistive indices. 2. Mild allograft collecting system dilatation. No perigraft fluid collection. 3. Minimal layering material within the bladder. This could be correlated with urinalysis. cxr Mild cardiomegaly with no active disease in the chest. (1) Multiple myeloma Multiple myeloma remission status: unspecified Qualified Code(s): C90.00 - Multiple myeloma not having achieved remission
[2022-03-09 08:19] LABS: Albumin Globulin Ratio 0.5 (0.9-2); Albumin Level 2.7 gm/dl (3.4-5.0); BUN Creatinine Ratio 10.1 (10-20); Bilirubin,Total 0.8 mg/dl (0.2-1.0); Calcium 5.8 mg/dl (8.5-10.1); Creatinine Clr Calc Pharmacy 10.6 ml/min; Est GFR (African American) 7.9 ml/min; Est GFR (Non-African American) 6.8 ml/min; Globulin 5.3 gm/dl (2.5-4.0); Magnesium 1.4 mg/dl (1.7-2.4); Potassium 3.6 mmol/L (3.5-5.1)
[2022-03-09] MEDS ORDERED: SODIUM CHLORIDE 0.9% 250 ML IV PRN (08:29)
[2022-03-09 08:32] LABS: Mean Corpuscular Hemoglobin 29.9 pg (25.0-34.0); Mean Corpuscular Volume 85.5 fL (80.0-100.0); Mean Platelet Volume 11.4 fL (9.4-12.3); Platelet Count 89 K/uL (130-400); RDW Coefficient of Variation 14.7 % (11.5-14.5); RDW Standard Deviation 45.5 fL (36.4-46.3); Red Blood Count 2.34 M/uL (3.93-5.22)
[2022-03-09 08:33] LABS: Lymphocytes % (manual) 5 %; Monocytes % (manual) 5 %; Neutrophils # (manual) 1.81 K/uL (1.4-6.5); Neutrophils % (manual) 91 %; RBC Morphology Unremarkable
[2022-03-09] MEDS: DOXYCYCLINE HYCLATE 100 MG in DEXTROSE 5% 100 ML IV SCH (08:56)
[2022-03-09] MEDS: MAGNESIUM SULFATE / D5W 1 GM/100 ML BAG IV SCH ×3 (08:59→12:26)
[2022-03-09] MEDS ORDERED: ASPIRIN 81 MG ECTAB PO SCH (09:00)
[2022-03-09] MEDS ORDERED: ATORVASTATIN 40 MG TAB PO SCH (09:00)
[2022-03-09] MEDS ORDERED: PANTOprazole 40 MG TAB PO SCH (09:00)
[2022-03-09] MEDS ORDERED: allopurinoL 300 MG TAB PO SCH (09:00)
[2022-03-09] MEDS ORDERED: predniSONE 5 MG TAB PO SCH (09:00)
[2022-03-09] MEDS: ACYCLOVIR 400 MG TAB PO SCH ×2 (09:05→14:00)
[2022-03-09] MEDS: INSULIN ASPART PER UNIT SC SCH ×2 (09:15→12:39)
[2022-03-09] MEDS ORDERED: SODIUM CHLORIDE 0.45 % 1,000 ML IV SCH (11:00)
[2022-03-09] MEDS ORDERED: CALCITRIOL 0.25 MCG CAPSULE PO SCH (11:00)
[2022-03-09] MEDS ORDERED: CALCIUM CARBONATE 1250MG TAB PO SCH (11:00)
--- NOTE | 2022-03-09 11:20 | Hospitalist Progress Note ---
Date of Service March 09, 2022 Assessment & Plan (1) Pneumonia due to COVID-19 virus: Plan: This is a 66 yo F with PMhx of diabetes, hyperlipidemia, hypertension, history of nephrotic syndrome and diffuse mesangial proliferative glomerulonephritis, status post kidney transplant in 2019 at [place]. The patient was diagnosed with MGUS in 2014. Recently diagnosed with MGUS converted to multiple myeloma and is on chemotherapy since last 5 weeks, weekly chemotherapy. She last received her oral cyclophosphamide 50 mg x 13 capsules last and then follows it the day after with dexamethasone 40 mg. Patient received first dose of Xgeva on 02/23. Today she is found to be COVID +19 positive, dehydrated, and in acute renal failure with hypocalcemia, hyponatremia, and hypomagnesemia with worsening of MM with new pathological fracture found in T12, amongst other known pathological fractures in the thoracic and lumbar spine. CT abdomen and pelvis shows interval development of mild patchy airway opacities. Chest x-ray unremarkable Pro-Corwin elevated Plan; Patient is currently saturating well in room air; no symptoms of fever, chills, or cough. -We will continue on Zosyn and doxycycline given her immunocompromise state; continue to monitor respiratory status. (2) Acute renal failure: (3) Renal transplant recipient: Plan: History [place] [facility] [place] on CKD likely secondary to decreased oral intake Her last creatinine was mid to late for since late December. Urinalysis shows 3+ protein, 3+ blood. CK normal Uric acid within normal limits Phosphorus wnl Renal ultrasound shows patent right lower quadrant renal allograft artery and vein. No perigraft fluid collection Plan; Improvement in creatinine from 6.7 to 5.7 overnight with IV hydration. Currently she is switched over to half-normal saline at 75 cc/h. - Monitor urine output. No urgent indication for dialysis -Continue her tacrolimus which will be brought by her today. Continue on prednisone 5 mg once daily (4) Hypomagnesemia: (5) Hypocalcemia: Plan: Denosumab induced hypocalcemia. Patient received last dose on 02/23 for hypercalcemia by oncology. Calcium down trended from 6.8 on 03/02 to 4.9 on presentation 25-hydroxy vitamin D -16 PTH elevated Plan; Continue aggressive calcium repletion; will obtain CMP and magnesium every 6 hours as recommended by nephrology. (6) Hyponatremia: Plan: Likely secondary to decreased oral intake and SHANNON on CKD Sodium 125 on presentation; 130 today. Appropriately increasing Monitor CMP every 6 hours; goal of correction of 6-8 M EQ in 24 hours (7) Multiple myeloma: (8) Pathological fracture: Plan: -Currently on cyclophosphamide and dexamethasone; follows up with oncology as outpatient Received denosumab for hypercalcemia on 02/23 CT abdomen and pelvis shows new fracture on T11, shows other known pathological fx in T12, L1, L3 and L4 Continue pain control with tramadol (9) HTN (hypertension): Plan: - Hold, amlodipine, carvedilol-patient did not take medications this morning due to feeling ill - Bp currently stable (10) Anemia: Plan: Hemoglobin dropped to 7.0 today. Patient had received irradiated packed RBC few days ago as outpatient 1 unit of irradiated packed RBC ordered. (11) DM II (diabetes mellitus, type II), controlled: Plan: - A1c 9.3 this admission. -Hold glipizide, Trulicity given on Wednesdays, she missed her normal routine dose today 03/08/2022. -ISS with Accu-Cheks ACHS, glucose is 160 on admission -Allow diet DVT PPx: -- teds, scds, CODE: DNR/DNI Dispo: From home, transfer to [place] after bed is available Admission and Anticipated Discharge Date Admission Date: March 08, 2022 Subjective Patient seen and examined at bedside. Patient reports that she is feeling much better compared to her presentation yesterday. No complaints of fever, chills, chest pain, shortness of breath, tremors, abdominal pain. She reports to having multiple episode of urine output yesterday and overnight; no output charted. Telemetry shows sinus rhythm; no alarms overnight. Review of Systems Review of Systems: All systems reviewed & are unremarkable except as noted in Subjective Physical Exam Physical Exam: Constitutional: WD/WN, vitals as above, NAD, sitting up in bed, pleasant, conversing easily Respiratory: normal respiratory effort, lungs clear to auscultation, no wheeze, rales, rhonchi. Normal insp/exp effort, no accessory muscle use Cardiovascular: RRR, no murmur, no edema Vessels: no JVD or carotid bruit Chest: normal inspection of chest Abdomen: normal bowel sounds, soft, nontender, no hepatosplenomegaly Musculoskeletal: no cyanosis or clubbing, extremities motor strength 5/5 Skin: no rashes, warm and dry normal turgor Neurologic: PERRL, EOMI, accommodation nl, no face palsy, no dysarthria CN's II- XI intact bilaterally and moves all extremities Psychiatric: A+Ox3, euthymic affect Lymphatic: no cervical or axillary lymphadenopathy : deferred Results & Data Results & Data ([facility]) Vital Signs (Past 12 Hours) Vital Signs Temp Pulse Pulse Resp BP Pulse Ox O2 Del Method 03/09/22 07:38 100 H 03/09/22 07:27 37 C 106 H 18 149/82 H 92 Nasal Cannula 03/09/22 02:54 37.3 C 100 H 18 135/79 93 Laboratory Results Laboratory Results WBC 1.99 K/ul (4.8-10.8) L 03/09/22 07:19 RBC 2.34 M/uL (3.93-5.22) L 03/09/22 07:19 Hgb 7.0 g/dl (12.0-16.0) L 03/09/22 07:19 Hct 20.0 % (34.1-44.9) L* 03/09/22 07:19 MCV 85.5 fL (80.0-100.0) 03/09/22 07:19 MCH 29.9 pg (25.0-34.0) 03/09/22 07:19 MCHC 35.0 g/dL (32.0-36.0) 03/09/22 07:19 RDW Std Deviation 45.5 fL (36.4-46.3) 03/09/22 07:19 RDW Coeff of [place] 14.7 % (11.5-14.5) H 03/09/22 07:19 Plt Count 89 K/uL (130-400) L 03/09/22 07:19 MPV 11.4 fL (9.4-12.3) 03/09/22 07:19 Neutrophils % (Manual) 91 % 03/09/22 07:19 Lymphocytes % (Manual) 5 % 03/09/22 07:19 Monocytes % (Manual) 5 % 03/09/22 07:19 Neutrophils # (Manual) 1.81 K/uL (1.4-6.5) 03/09/22 07:19 Lymphocytes # (Manual) 0.10 K/uL (1.2-3.4) L 03/09/22 07:19 Monocytes # (Manual) 0.10 K/uL (0.24-0.82) L 03/09/22 07:19 RBC Morphology Unremarkable 03/09/22 07:19 Sodium 130 mmol/L (136-145) L 03/09/22 07:19 Potassium 3.6 mmol/L (3.5-5.1) 03/09/22 07:19 Chloride 100 mmol/L (98-107) 03/09/22 07:19 Carbon Dioxide 16 mmol/L (21-32) L 03/09/22 07:19 Anion Gap 14 (3-11) H 03/09/22 07:19 BUN 59 mg/dl (6-23) H 03/09/22 07:19 Creatinine 5.87 mg/dl (0.6-1.2) H* D 03/09/22 07:19 Est Cr Clr Drug Dosing 10.6 ml/min 03/09/22 07:19 Est GFR ( Amer) 7.9 ml/min 03/09/22 07:19 Est GFR (Non-Af Amer) 6.8 ml/min 03/09/22 07:19 BUN/Creatinine Ratio 10.1 (10-20) 03/09/22 07:19 Glucose 103 mg/dl (70-99(Fasting)) H 03/09/22 07:19 POC Glucose 116 mg/dl (70-99) H 03/09/22 07:47 Estimat Average Glucose 220 mg/dl 03/08/22 13:40 Hemoglobin A1c 9.3 % (4.5-5.6) H 03/08/22 13:40 Osmolality 288 mOsm/kg (280-300) 03/08/22 17:03 Lactate 1.6 mmol/L (0.4-2.0) 03/08/22 14:31 Uric Acid 7.0 mg/dl (2.6-7.2) 03/08/22 17:03 Calcium 5.8 mg/dl (8.5-10.1) L* 03/09/22 07:19 Calcium 5.9 mg/dl (8.5-10.1) L* 03/09/22 07:19 Ionized Calcium 0.79 mmol/L (1.12-1.32) L 03/09/22 07:19 Phosphorus 4.4 mg/dl (2.5-4.9) 03/08/22 17:03 Magnesium 1.4 mg/dl (1.7-2.4) L 03/09/22 07:19 Magnesium Cancelled 03/09/22 07:19 Total Bilirubin 0.8 mg/dl (0.2-1.0) 03/09/22 07:19 Direct Bilirubin 0.1 mg/dl (0-0.2) 03/08/22 13:40 AST 16 U/L (13-39) 03/09/22 07:19 ALT 12 U/L (7-52) 03/09/22 07:19 Alkaline Phosphatase 51 U/L (34-104) 03/09/22 07:19 Lactate Dehydrogenase 279 U/L (86-244) H 03/08/22 17:03 Total Creatine Kinase 34 U/L (26-192) 03/08/22 17:03 Troponin I High Sens 13.4 pg/ml (0-14) 03/08/22 13:40 Total Protein 8.0 gm/dl (6.0-8.3) 03/09/22 07:19 Albumin 2.7 gm/dl (3.4-5.0) L 03/09/22 07:19 Globulin 5.3 gm/dl (2.5-4.0) H 03/09/22 07:19 Albumin/Globulin Ratio 0.5 (0.9-2) L 03/09/22 07:19 25-OH Vitamin D Total 16.3 ng/ml (30-100) L 03/09/22 02:26 Procalcitonin 1.66 ng/ml (0-0.5) H 03/08/22 13:40 PTH Intact 441.2 pg/ml (12.0-88.0) H 03/09/22 02:26 Urine Color Red 03/08/22 17:55 Urine Appearance Cloudy (Clear) A 03/08/22 17:55 Urine pH 5.0 (4.5-7.5) 03/08/22 17:55 Ur Specific Orgas 1.012 (1.000-1.030) 03/08/22 17:55 Urine Protein 3+ (Negative) H 03/08/22 17:55 Urine Glucose (UA) Negative (Negative) 03/08/22 17:55 Urine Ketones Negative (Negative) 03/08/22 17:55 Urine Blood 3+ (Negative) H 03/08/22 17:55 Urine Nitrite Negative (Negative) 03/08/22 17:55 Urine Bilirubin Negative (Negative) 03/08/22 17:55 Urine Urobilinogen Negative (Negative) 03/08/22 17:55 Ur Leukocyte Esterase 2+ (Negative) H 03/08/22 17:55 Urine WBC (Auto) >30 /hpf (0-5) H 03/08/22 17:55 Urine RBC (Auto) 10-30 /hpf (0-4) H 03/08/22 17:55 U Hyaline Cast (Auto) 0 /lpf (0-5) 03/08/22 17:55 U Epithel Cells (Auto) 0-5 /lpf (0-5) 03/08/22 17:55 Urine Bacteria (Auto) 2+ (Negative) H 03/08/22 17:55 Urine Crystals Not Reportable 03/08/22 17:55 Urine Yeast Not Reportable 03/08/22 17:55 Urine Osmolality 289 mOsm/kg (500-800) L 03/08/22 18:32 Urine Sodium 69 mmol/L 03/08/22 18:32 Urine Potassium 19.0 mmol/L 03/08/22 18:32 Urine Chloride 68 mmol/L 03/08/22 18:32 Adenovirus (PCR) Not Detected (NotDetected) 03/08/22 14:23 B. pertussis DNA (PCR) Not Detected (NotDetected) 03/08/22 14:23 B.parapertussis DNA PCR Not Detected (NotDetected) 03/08/22 14:23 C. pneumoniae DNA (PCR) Not Detected (NotDetected) 03/08/22 14:23 Coronavirus OC43 (PCR) Not Detected (NotDetected) 03/08/22 14:23 Coronavirus HKU1 (PCR) Not Detected (NotDetected) 03/08/22 14:23 Coronavirus 229E (PCR) Not Detected (NotDetected) 03/08/22 14:23 SARS-CoV-2 (PCR) DETECTED (NotDetected) A* 03/08/22 14:23 Coronavirus NL63 (PCR) Not Detected (NotDetected) 03/08/22 14:23 Human Metapneumovir PCR Not Detected (NotDetected) 03/08/22 14:23 Influenza Type A (PCR) Not Detected (NotDetected) 03/08/22 14:23 Influenza Type B (PCR) Not Detected (NotDetected) 03/08/22 14:23 M. pneumoniae (PCR) Not Detected (NotDetected) 03/08/22 14:23 Parainfluenza 1 (PCR) Not Detected (NotDetected) 03/08/22 14:23 Parainfluenza 2 (PCR) Not Detected (NotDetected) 03/08/22 14:23 Parainfluenza 3 (PCR) Not Detected (NotDetected) 03/08/22 14:23 Parainfluenza 4 (PCR) Not Detected (NotDetected) 03/08/22 14:23 RSV (PCR) Not Detected (NotDetected) 03/08/22 14:23 Entero/Rhino (PCR) Not Detected (NotDetected) 03/08/22 14:23 Blood Type A Positive 03/09/22 08:48 Antibody Screen POSITIVE A 03/09/22 08:48 Crossmatch See Detail 03/09/22 08:48 Impressions Chest X-Ray 03/08/22 14:13 SINGLE VIEW CHEST CLINICAL HISTORY: Sepsis. FINDINGS: 2 AP, portable, upright chest radiographs are compared to study dated 08/22/2017. The heart is mildly enlarged. The pulmonary vasculature is noncongested. Atelectasis is noted at the lung bases. The lungs and pleural spaces are otherwise clear. No pneumothorax is seen. The skeletal structures are osteopenic. The bony thorax is grossly intact. IMPRESSION: Mild cardiomegaly with no active disease in the chest. ACT 112: Negative or not required by law. Electronically signed by: Suleman Nicole M.D. 03/08/2022 2:48 PM Abdomen/Pelvis CT 03/08/22 14:14 CT OF THE ABDOMEN AND PELVIS WITHOUT CONTRAST CLINICAL HISTORY: back pain, renal trx, cough, h/o multiple myeloma COMPARISON STUDY: CT of the abdomen and pelvis February 14, 2022. TECHNIQUE: Axial images of the abdomen and pelvis were obtained without IV contrast. Images were reviewed in the axial, sagittal, and coronal planes. Automated exposure control was utilized for the study. A dose lowering technique was utilized adhering to the principles of ALARA. FINDINGS: There has been interval development of mild multifocal ground glass opacities within the lower lungs since CT of February 14, 2022. No pneumatosis, free air or portal venous gas is present. Evaluation of the abdomen and pelvis is suboptimal on this unenhanced exam. Size of the spleen is at the upper limits of normal. Unenhanced images of the liver and adrenal glands are unremarkable. A 1.3 cm cystic lesion within the pancreatic body on image 87 of [id number] is again noted. There is no pancreatic ductal dilatation. This is suboptimally assessed on this unenhanced exam. No peripancreatic stranding is present. Gallbladder is moderately distended. There is no adjacent stranding. Both [place] kidneys are atrophic. Right lower quadrant renal allograft is noted. There is no perigraft fluid collection. There is no graft hydronephrosis. There is subtle stranding within the right renal sinus with possible urothelial thickening. No evidence for a bowel obstruction. The appendix is normal. Calcified fibroid is incidentally noted. 3.3 cm cystic lesion within the left ovary is noted. This is unchanged. Lytic skeletal lesions are again noted. Pathologic fractures, likely subacute, of T12, L1, L3 and L4 are noted. There has been interval increase in vertebral body height loss of the T12 and L1 vertebral body since prior CT. A T11 pathologic fracture is new since prior CT of February 14, 2022. Trace gas within the bladder may be related to instrumentation. IMPRESSION: 1. Interval development of mild patchy airspace opacities within the lower lungs since prior abdominal CT. The findings suggest an infectious process. 2. No bowel obstruction. No bowel wall thickening on unenhanced exam. 3. Interval development of a T11 pathologic fracture since CT of February 14, 2022. This is likely acute. Redemonstration of T12, L1, L3 and L4 pathologic fractures, as above. Redemonstration of lytic skeletal lesions consistent with myeloma. 4. Moderate gallbladder distention. No adjacent stranding. This could be correlated with right upper quadrant pain and ultrasound if indicated. 5. Nonspecific mild urothelial thickening of the right lower quadrant renal allograft which could be correlated with urinalysis. 6. No change in a 1.3 cm cystic lesion within the pancreatic body. This may reflect a side branch IPMN. One year follow CT is recommended to ensure stability. 7. No change in a 3.3 cm cystic lesion within the left ovary. This is probably benign although abnormal in a postmenopausal patient. This can be assessed with a nonemergent pelvic ultrasound. ACT 112: Negative or not required by law. Electronically signed by: César Queen M.D. 03/08/2022 3:18 PM Renal Ultrasound 03/08/22 18:25 RENAL TRANSPLANT ULTRASOUND CLINICAL HISTORY: Shannon on CKD COMPARISON STUDY: CT of the abdomen and pelvis performed earlier today. TECHNIQUE: Grayscale, color and duplex Doppler sonography of the right lower quadrant renal allograft was performed. FINDINGS: The allograft measures 14.1 cm in maximal dimension. There is mild graft collecting system dilatation. No perigraft fluid collection is present. The renal transplant artery and vein are patent. Peak systolic velocity within the transplant artery is 201 cm/second which is within normal limits. Resistive indices within the segmental vessels of the allograft are within normal limits, ranging from 0.57-0.7. There is minimal layering material within the bladder. IMPRESSION: 1. Patent right lower quadrant renal allograft artery and vein. Normal resistive indices. 2. Mild allograft collecting system dilatation. No perigraft fluid collection. 3. Minimal layering material within the bladder. This could be correlated with urinalysis. ACT 112: Negative or not required by law. Electronically signed by: César Queen M.D. 03/08/2022 9:11 PM (1) Anemia Anemia type: unspecified type Qualified Code(s): D64.9 - Anemia, unspecified (2) Pathological fracture Encounter type: initial encounter Pathology associated with fracture: neoplastic disease Site of pathological fracture: vertebra Qualified Code(s): M84.58XA - Pathological fracture in neoplastic disease, other specified site, initial encounter for fracture (3) HTN (hypertension) Hypertension type: unspecified Qualified Code(s): I10 - Essential (primary) hypertension (4) Multiple myeloma Multiple myeloma remission status: unspecified Qualified Code(s): C90.00 - Multiple myeloma not having achieved remission
[2022-03-09] MEDS: CALCIUM GLUCONATE 10% 2,000 MG in SODIUM CHLORIDE 0.9% 50 ML IV SCH ×2 (11:27→11:55)
[2022-03-09] MEDS ORDERED: HEPARIN SOD 5,000 UNIT/0.5 ML VIAL SQ SCH (14:00)
[2022-03-09 14:11] LABS: Albumin Globulin Ratio 0.5 (0.9-2); Albumin Level 2.7 gm/dl (3.4-5.0); BUN Creatinine Ratio 9.8 (10-20); Bilirubin,Total 0.8 mg/dl (0.2-1.0); Calcium 7.1 mg/dl (8.5-10.1); Creatinine Clr Calc Pharmacy 11.2 ml/min; Est GFR (African American) 8.4 ml/min; Est GFR (Non-African American) 7.2 ml/min; Globulin 5.4 gm/dl (2.5-4.0); Potassium 3.3 mmol/L (3.5-5.1); Total Protein 8.1 gm/dl (6.0-8.3)
--- NOTE | 2022-03-09 15:22 | Discharge Summary ---
Date of Service March 09, 2022 Admission HPI Per Admitting Provider This is a 66 yo F with PMhx of diabetes, hyperlipidemia, hypertension, history of nephrotic syndrome and diffuse mesangial proliferative glomerulonephritis, status post kidney transplant in 2019 at [facility]. The patient was diagnosed with MGUS in 2014. Recently diagnosed with MGUS converted to multiple myeloma and is on chemotherapy since last 5 weeks, weekly chemotherapy. She last received her oral cyclophosphamide 50 mg x 13 capsules last and then follows it the day after with dexamethasone 40 mg. The patients main complaints include cough, back pain, which has been ongoing for several weeks now and thought that the cough was due to the chemotherapy. She denies any fever, chills or sweats and does check her temp daily. Denies any shortness of breath at rest but feels due to pain in her back she was getting short of breath on exertion. Developed some intermittent nausea and vomiting every morning, some mornings threw up. She reports poor po intake and having difficulty drinking her regular 6 btls of water, and was down to 3-4 the past 4 mott. She gets shakey at times and feels its worse when she's dehydrated. She has been taking tacrolimus and and tixagevimab inj every 6 months. She has been working with transplant team and her oncologist. She has not seen them since her lst hospital discharge. - Imaging reveals a newd evelopment of T12 pathological fracture, old T11 pathological fracture, L1, L3 and L4. Lungs show interval development of mild patchy airspace opacities within the lower lungs. Initially she was tachycardic. Admission Exam Per Admitting Provider GENERAL: The patient is of moderate build, not in acute distress. VITAL SIGNS: Temperature 36.6, pulse 88, respiratory rate 14, blood pressure 144/81, oxygen 96% on room air. HEENT: Pupils equal, round and reactive to light. Oral mucosa moist. NECK: No JVD, no neck masses. CARDIOVASCULAR: S1 and S2 heard. Regular rate and rhythm. No murmur, no gallop. RESPIRATORY SYSTEM: Normal AP diameter. No accessory muscle use. No wheezing, no crackles. ABDOMEN: Soft, bowel sounds present, nontender, no distention. CENTRAL NERVOUS SYSTEM: Alert and oriented. Speech is clear. No facial droop. Insight is good. Obeys simple commands. Moves extremities. EXTREMITIES: No edema, no erythema. Principal Diagnosis Pneumonia due to COVID-19 virus SHANNON on CKD Hypomagnesemia: Hypocalcemia Hyponatremia Multiple myeloma Pathological fracture Anemia Discharge Exam Constitutional: WD/WN, vitals as above, NAD, sitting up in bed, pleasant, conversing easily Respiratory: normal respiratory effort, lungs clear to auscultation, no wheeze, rales, rhonchi. Normal insp/exp effort, no accessory muscle use Cardiovascular: RRR, no murmur, no edema Vessels: no JVD or carotid bruit Chest: normal inspection of chest Abdomen: normal bowel sounds, soft, nontender, no hepatosplenomegaly Musculoskeletal: no cyanosis or clubbing, extremities motor strength 5/5 Skin: no rashes, warm and dry normal turgor Neurologic: PERRL, EOMI, accommodation nl, no face palsy, no dysarthria CN's II- XI intact bilaterally and moves all extremities Psychiatric: A+Ox3, euthymic affect Lymphatic: no cervical or axillary lymphadenopathy : deferred Discharge Data Allergies Allergy/AdvReac Type Severity Reaction Status Date / Time No Known Allergies Allergy Verified 03/06/22 11:10 Consultations 03/08/22 16:41 ED Decision to Admit Stat 03/08/22 17:05 Consult Nephrology Routine Ordered Studies 03/08/22 14:14 CT abd pelvis wo con Stat 03/08/22 18:25 US renal transplant w dop Routine Diabetes Follow up Diabetes Follow-up Needed for HgbA1c >9% Hospital Course (1) Pneumonia due to COVID-19 virus: This is a 66 yo F with PMhx of diabetes, hyperlipidemia, hypertension, history of nephrotic syndrome and diffuse mesangial proliferative glomerulonephritis, status post kidney transplant in 2019 at [facility]. The patient was diagnosed with MGUS in 2014. Recently diagnosed with MGUS converted to multiple myeloma and is on chemotherapy since last 5 weeks, weekly chemotherapy. She last received her oral cyclophosphamide 50 mg x 13 capsules last and then follows it the day after with dexamethasone 40 mg. Patient received first dose of Xgeva on 02/23. Today she is found to be COVID +19 positive, dehydrated, and in acute renal failure with hypocalcemia, hyponatremia, and hypomagnesemia with worsening of MM with new pathological fracture found in T12, amongst other known pathological fractures in the thoracic and lumbar spine. CT abdomen and pelvis shows interval development of mild patchy airway opacities. Chest x-ray unremarkable Pro-Corwin elevated Plan; Patient in RA throughout the hospitalization; no symptoms of fever, chills, or cough. - was on Zosyn and doxycycline given her immunocompromise state; (2) Acute renal failure: (3) Renal transplant recipient: History of renal transplant at [facility] in [place] SHANNON on CKD likely secondary to decreased oral intake Her last creatinine was mid to late for since late December. Urinalysis shows 3+ protein, 3+ blood. CK normal Uric acid within normal limits Phosphorus wnl Renal ultrasound shows patent right lower quadrant renal allograft artery and vein. No perigraft fluid collection Urine output of 1100cc in last 8 hours at discharge. Cr downtrended to 5.4. no urgent indication for dialysis. (4) Hypomagnesemia: (5) Hypocalcemia: Denosumab induced hypocalcemia. Patient received last dose on 02/23 for hypercalcemia by oncology. Calcium down trended from 6.8 on 03/02 to 4.9 on presentation. Impro 25-hydroxy vitamin D -16 PTH elevated Improved to 7.1 at discharge; correct Ca- 8.1. (6) Hyponatremia: Likely secondary to decreased oral intake and SHANNON on CKD Sodium 125 on presentation; 130 today. Appropriately increasing Monitor CMP every 6 hours; goal of correction of 6-8 M EQ in 24 hours Na- 129 (corrected) on discharge (7) Multiple myeloma: (8) Pathological fracture: -Currently on cyclophosphamide and dexamethasone; follows up with oncology as outpatient Received denosumab for hypercalcemia on 02/23 CT abdomen and pelvis shows new fracture on T11, shows other known pathological fx in T12, L1, L3 and L4 Continue pain control with tramadol (9) HTN (hypertension): - Hold, amlodipine, carvedilol-patient did not take medications this morning due to feeling ill - Bp currently stable (10) Anemia: Hemoglobin dropped to 7.0 today. Patient had received irradiated packed RBC few days ago as outpatient 1 unit of irradiated packed RBC ordered; unable to obtain blood products; no transfusion done in the hospital. (11) DM II (diabetes mellitus, type II), controlled: - A1c 9.3 this admission. -Hold glipizide, Trulicity given on Wednesdays, she missed her normal routine dose today 03/08/2022. -ISS with Accu-Cheks ACHS, glucose is 160 on admission -Allow diet DVT PPx: -- teds, scds, Patient transferred to [facility] for further care. Total Time Total Time Spent Total Time Spent (In Minutes): 35 Total Time Includes: Examination of the Patient, Discharge Planning, Medication Reconciliation, Communication With Other Providers and Other Discharge Plan Discharge Items Patient Disposition: Transfer Acute Care Hospital Reason For Visit: ARF, HX RENAL TRANSPLANT, COVID PNA Discharge Diagnosis: Covid 19 infection SHANNON on CKD with Hx of Renal Transplant Denosumab induced Hypocalcemia Hyponatremia secondary to SHANNON and decreased intake Activity: Resume your previous activity Non-emergency contact: Primary Care Provider Call non-emergency contact if: you have any medication questions Follow-up/Referrals: Peace Overton DO [Primary Care Provider] - Diet: Carb Consistent or DM2 and Dialysis Renal Addtl Attending Provider Instructions: Please follow-up with your primary care doctor, oncologist and automation consultant at discharge. Pending Studies at Discharge: No Stand-Alone Forms: My [facility] Skilled Items Patient informed of condition?: Yes DNR: Yes Discharge Level of Care: Other Communicable Disease: No Discharge Prognosis: Stable Lines: Peripheral IV Urinary Catheter: No Medications and DC Order Prescriptions: Continued atorvastatin 40 mg tablet 40 mg PO QAM carvedilol 12.5 mg tablet 12.5 mg PO BIDM ondansetron HCl 8 mg tablet 8 mg PO QAM Rx Instructions: TAKE 1 HOUR PRIOR TO ORAL CHEMOTHERAPY. prednisone 5 mg tablet 5 mg PO DAILY amlodipine 5 mg tablet 5 mg PO QPM prochlorperazine maleate 10 mg tablet 10 mg PO Q6H PRN (Reason: NAUSEA/VOMITING) acyclovir 400 mg tablet 400 mg PO TID Rx Instructions: TAKES QAM, NOON, & HS. aspirin 81 mg Tablet,Delayed Release (Dr/Ec) 81 mg PO DAILY tramadol 50 mg tablet 50 mg PO Q6H PRN (Reason: Pain) dexamethasone 4 mg tablet 40 mg PO WK Rx Instructions: TAKES 10 TABS ONCE WEEKLY. allopurinol 300 mg tablet 150 mg PO QAM omeprazole 20 mg Tablet,Delayed Release (Dr/Ec) 20 mg PO QAM cyclophosphamide 50 mg Capsule 650 mg PO WK Rx Instructions: TAKE 13 CAPS ONCE WEEKLY ON EMPTY STOMACH. Thursdays Envarsus XR 1 mg Tablet Extended Release 24 Hr 2 mg PO QAM Rx Instructions: must be taken on empty stomach Trulicity 3 mg/0.5 mL Pen Injector 3 mg SUBCUT WK Rx Instructions: TAKES ON WEDNESDAYS. ergocalciferol (vitamin D2) [Vitamin D2] 1,250 mcg (50,000 unit) capsule 1,250 mcg PO Q4WK Trulicity 3 mg/0.5 mL pen injector 3 mg SUBCUT WK Discharge Orders: Discharge Order (Routine); Ordered 03/09/22 Ordered By: Aaron Cruz/Other Patient Handouts: Managing Type 2 Diabetes Admission Data Admit Date/Time: 03/08/22 17:05 Attending Provider: Aaron Gee Admit Provider: Aaron Gee Primary Care Provider: Peace Overton Other Providers: Radhika Rogel ; Aaron Gee
--- NOTE | 2022-03-09 21:42 | Electrocardiogram Report ---
Test Reason : Blood Pressure : / mmHG Vent. Rate : 106 BPM Atrial Rate : 106 BPM P-R Int : 180 ms QRS Dur : 098 ms QT Int : 358 ms P-R-T Axes : 031 -03 008 degrees QTc Int : 475 ms Sinus tachycardia Cannot rule out Anterior infarct , age undetermined Abnormal ECG When compared with ECG of 08-MAR-2022 14:19, No significant change was found Confirmed by Bret Edmondson ([id number]) on 03/09/2022 9:42:40 PM Referred By: Dominique Garcia Confirmed By:Bret Edmondson
== END 2022-03-09 15:32 | disposition short-term general hospital (02) ==
LOC: ED 13:31 → 2S 17:05 → INTOOBSV 17:05 → 2S 18:29

== ENCOUNTER 2022-03-31 09:40 | Observation (INO) ==
[~2022-03-31 09:40] MED LIST changes: -AMLO-110 PO; -CALC500T83 PO; -CEFAZOLIN 1000MG IV PUSH 7.5 ML IV SCH; -CEFAZOLIN 2000MG IV PUSH 15 ML IV SCH; -CEFAZOLIN SOD 2000MG/15 ML IV PUSH ONE; -D5W AND 1/4NSS 1000 ML IV SCH; -EPGI10M SQ; -FENTANYL CITRATE INJ 50 MCG/1 ML 2 ML VIAL IV ONE; -FENTANYL CITRATE INJ 50 MCG/1 ML 2 ML VIAL ONE; -HEPARIN SOD (PORCINE) 5000 UNIT/ML 1 ML VIAL ONE; -HEPARIN SOD (PORCINE) 5000 UNIT/ML 1 ML VIAL SQ ONE; -LIDOCAINE HCL 1% 20 ML VIAL SQ ONE; -MIDAZOLAM HCL 1 MG/ML 2ML VIAL IV ONE; -MIDAZOLAM HCL 1 MG/ML 2ML VIAL ONE; +PIPERACILLIN/TAZOBACTAM 3.375 GM in DEXTROSE 5% 100 ML IV SCH; -SULF1TAB92 PO; -VTMD1000 PO
[2022-03-31] MEDS ORDERED: SODIUM CHLORIDE 0.9% 250 ML IV PRN ×2 (10:06→12:31)
--- NOTE | 2022-03-31 10:13 | Emergency Department Note ---
History of Present Illness General Chief complaint: Referred by Doctor Stated complaint: HEMOGLOBIN IS LOW Time Seen by Provider: 03/31/22 09:55 Source: patient, family, RN notes reviewed and old records reviewed Mode of arrival: ambulatory Limitations: no limitations History of Present Illness This patient is a 67-year-old female who has a history of end-stage renal disease, comes in after being referred by Dr. Argueta her regulator mechanic as her hemoglobin was low at 6.5 which was drawn on 1130. She has had some weakness diffusely and feels weak and dizzy when she stands. She is on blood pressure medication but is but not taking them as her blood pressure is running low at times. She is had no blood or melena in her stool. No fever no chest pain or shortness of breath she did have COVID and was hospitalized from March 08 to that she is still on oxygen and recuperating from that. She has a kidney transplant however she is now back on dialysis she did receive dialysis in the hospital and since she is left today was to be her third outpatient dialysis. She is on a Sunday regimen. She also has multiple myeloma and has had last chemo done about 2 weeks ago. She has had blood transfusions in the past Home Medications Medication Instructions Recorded Confirmed Type allopurinol 300 mg tablet 150 mg PO QAM 02/14/22 03/08/22 History amlodipine 5 mg tablet 5 mg PO QPM 02/14/22 03/08/22 History aspirin 81 mg tablet,delayed 81 mg PO DAILY 02/14/22 03/08/22 History release atorvastatin 40 mg tablet 40 mg PO QAM 02/14/22 03/08/22 History carvedilol 12.5 mg tablet 12.5 mg PO BIDM 02/14/22 03/08/22 History omeprazole 20 mg tablet,delayed 20 mg PO QAM 02/14/22 03/08/22 History release ondansetron HCl 8 mg tablet 8 mg PO QAM 02/14/22 03/08/22 History prednisone 5 mg tablet 5 mg PO DAILY 02/14/22 03/08/22 History prochlorperazine maleate 10 mg 10 mg PO Q6H PRN NAUSEA/VOMITING 02/14/22 03/08/22 History tablet tramadol 50 mg tablet 50 mg PO Q6H PRN Pain 02/14/22 03/08/22 History dulaglutide 3 mg/0.5 mL 3 mg subcut WK 03/08/22 03/08/22 History subcutaneous pen injector (Trulicity) ergocalciferol (vitamin D2) 1,250 1,250 mcg PO Q4WK 03/08/22 03/08/22 History mcg (50,000 unit) capsule (Vitamin D2) calcium carbonate 500 mg-vitamin 1 tab PO BID 03/31/22 03/31/22 History D3 3.125 mcg (125 unit) tablet Allergies Allergy/AdvReac Type Severity Reaction Status Date / Time No Known Allergies Allergy Verified 03/06/22 11:10 Past Med/Surg History Medical History C3 glomerulonephritis DM II (diabetes mellitus, type II), controlled ESRD (end stage renal disease) HTN (hypertension) Multiple myeloma Pathological fracture Renal transplant recipient Surgical History Hx of kidney transplant S/P ACL repair S/P hemorrhoidectomy Family History Father Cancer Brother Kidney disease Glioblastoma Heart disease Diabetes MDS (myelodysplastic syndrome) Prostate cancer Mother Autoimmune hepatitis Social History Smoking Status: Never smoker Hx Alcohol Use: No Hx Substance Use: No Preferred Language: Maltese Communication Ability: Effective Jack Prizer Required: No Beliefs That Will Affect Care: None Current Living Situation: Spouse Feels Safe at Home: Yes Assistive Devices: None Review of Systems A total of 10 systems reviewed and were otherwise negative Physical Exam Vital Signs Vital Signs - 24 hr 03/31/22 09:43 03/31/22 12:23 03/31/22 10:51 Temperature 36.7 C Temperature Source Temporal Artery Scan Pulse Rate 100 H 94 H 96 H Pulse Rate from SpO2 Sensor 96 H Pulse Rhythm Regular Respiratory Rate 20 16 15 Respiratory Effort / Characteristics Non-Labored Spontaneous Respiratory Depth Normal Respiratory Pattern Regular Blood Pressure 92/56 L 90/58 L Blood Pressure Mean 68 68 Pulse Oximetry 100 98 100 Oxygen Delivery Method Nasal Cannula Room Air Oxygen Flow Rate 2 Sepsis Recent Fever Within 48 Hours No Sepsis New/Unexplained Change in Mental Status No Sepsis Action Taken by Nursing No Action Required 03/31/22 11:00 03/31/22 11:30 03/31/22 12:00 Temperature Temperature Source Pulse Rate 98 H 95 H 95 H Pulse Rate from SpO2 Sensor 98 H 95 H 97 H Pulse Rhythm Respiratory Rate 14 12 12 Respiratory Effort / Characteristics Respiratory Depth Respiratory Pattern Blood Pressure 85/58 L Blood Pressure Mean 67 Pulse Oximetry 100 99 99 Oxygen Delivery Method Oxygen Flow Rate Sepsis Recent Fever Within 48 Hours Sepsis New/Unexplained Change in Mental Status Sepsis Action Taken by Nursing General: Well developed well nourished middle-age female who appears in no acute distress, breathing comfortably on room air. Normal speech HEENT: Normal cephalic atraumatic. Pupils are equal round and reactive to light. Extraocular movements are intact. Oropharynx is pink with moist mucous membranes. No swelling of the mouth lips or tongue. Neck: Supple with a midline trachea. No meningeal signs or stiffness, no JVD or bruits. No Stridor. Chest: Clear to auscultation bilaterally. No wheezes or rhonchi. No increased work of breathing. Dialysis catheter right chest without any redness or drai nage around the site Heart: Regular rate and rhythm without murmurs or gallops. Abdomen: Soft nontender, nondistended without rebound guarding or rigidity. Extremities: No cyanosis clubbing or edema. No calf tenderness or assymetry Spine/Back. Non tender to palpation. No CVA tenderness Skin: Good turgor without rashes. Neurologic exam: Cranial nerves two through 12 are intact. Motor and sensation are intact and symmetrical throughout. Course Administered Medications Discontinued Medications Acetaminophen (Acetaminophen 325 Mg Tab) 650 mg PO NOW ONE Stop: 03/31/22 13:31 Last Admin: 03/31/22 13:45 Dose: Not Given Documented By: POP Calcium Gluconate 1,000 mg/ (Dextrose) 60 mls @ 240 mls/hr IV NOW ONE Stop: 03/31/22 12:59 Last Infusion: 03/31/22 13:45 Dose: 0 mls/hr Documented By: Admin: 03/31/22 13:26 Dose: 240 mls/hr Documented By: POP Medical Decision Making Differential Diagnosis Anemia, electrolyte or metabolic abnormality, dialysis complication/ESRD, infection, cardiac disease Medical Records Attestation: I reviewed the patient's medical records. Home Medications Current Medication List: was personally reviewed by me Laboratory Data Attestation: I reviewed the patient's lab results. Result diagrams: 03/31/22 10:34 03/31/22 10:34 Lab Results 03/31/22 03/31/22 03/31/22 Range/Units 10:28 10:34 10:34 WBC 1.84 L (4.8-10.8) K/ul RBC 2.14 L (3.93-5.22) M/uL Hgb 6.5 L* (12.0-16.0) g/dl Hct 19.0 L* (34.1-44.9) % MCV 88.8 (80.0-100.0) fL MCH 30.4 (25.0-34.0) pg MCHC 34.2 (32.0-36.0) g/dL RDW Std Deviation 46.9 H (36.4-46.3) fL RDW Coeff of [place] 15.2 H (11.5-14.5) % Plt Count 48 L (130-400) K/uL MPV 12.1 (9.4-12.3) fL Immature Gran % (Auto) 0.5 % Neut % (Auto) 79.4 % Lymph % (Auto) 8.2 % Allen % (Auto) 11.4 % Eos % (Auto) 0.5 % Baso % (Auto) 0.0 % Neut # (Auto) 1.46 (1.4-6.5) K/uL Lymph # (Auto) 0.15 L (1.2-3.4) K/uL Allen # (Auto) 0.21 L (0.24-0.82) K/uL Eos # (Auto) 0.01 (0-0.50) K/uL Baso # (Auto) 0.00 (0-0.2) K/uL Immature Gran # (Auto) 0.01 (0.00-0.02) K/uL Sodium 132 L (136-145) mmol/L Potassium 3.6 (3.5-5.1) mmol/L Chloride 93 L (98-107) mmol/L Carbon Dioxide 25 (21-32) mmol/L Anion Gap 14 H (3-11) BUN 34 H (6-23) mg/dl Creatinine 5.80 H* (0.6-1.2) mg/dl Est Cr Clr Drug Dosing Not Reportable Est GFR ( Amer) 8.0 ml/min Est GFR (Non-Af Amer) 6.9 ml/min BUN/Creatinine Ratio 5.9 L (10-20) Glucose 111 H (70-99(Fasting)) mg/dl Calcium 6.1 L (8.5-10.1) mg/dl Total Bilirubin 0.7 (0.2-1.0) mg/dl AST 26 (13-39) U/L ALT 18 (7-52) U/L Alkaline Phosphatase 70 (34-104) U/L Total Protein 8.4 H (6.0-8.3) gm/dl Albumin 2.8 L (3.4-5.0) gm/dl Globulin 5.6 H (2.5-4.0) gm/dl Albumin/Globulin Ratio 0.5 L (0.9-2) Procalcitonin (0-0.5) ng/ml SARS-CoV-2, RNA, NAAT (NEGATIVE) Blood Type A Positive Antibody Screen POSITIVE A Crossmatch See Detail 03/31/22 03/31/22 Range/Units 10:36 10:49 WBC (4.8-10.8) K/ul RBC (3.93-5.22) M/uL Hgb (12.0-16.0) g/dl Hct (34.1-44.9) % MCV (80.0-100.0) fL MCH (25.0-34.0) pg MCHC (32.0-36.0) g/dL RDW Std Deviation (36.4-46.3) fL RDW Coeff of Chelsea (11.5-14.5) % Plt Count (130-400) K/uL MPV (9.4-12.3) fL Immature Gran % (Auto) % Neut % (Auto) % Lymph % (Auto) % Allen % (Auto) % Eos % (Auto) % Baso % (Auto) % Neut # (Auto) (1.4-6.5) K/uL Lymph # (Auto) (1.2-3.4) K/uL Allen # (Auto) (0.24-0.82) K/uL Eos # (Auto) (0-0.50) K/uL Baso # (Auto) (0-0.2) K/uL Immature Gran # (Auto) (0.00-0.02) K/uL Sodium (136-145) mmol/L Potassium (3.5-5.1) mmol/L Chloride (98-107) mmol/L Carbon Dioxide (21-32) mmol/L Anion Gap (3-11) BUN (6-23) mg/dl Creatinine (0.6-1.2) mg/dl Est Cr Clr Drug Dosing Est GFR ( Amer) ml/min Est GFR (Non-Af Amer) ml/min BUN/Creatinine Ratio (10-20) Glucose (70-99(Fasting)) mg/dl Calcium (8.5-10.1) mg/dl Total Bilirubin (0.2-1.0) mg/dl AST (13-39) U/L ALT (7-52) U/L Alkaline Phosphatase (34-104) U/L Total Protein (6.0-8.3) gm/dl Albumin (3.4-5.0) gm/dl Globulin (2.5-4.0) gm/dl Albumin/Globulin Ratio (0.9-2) Procalcitonin 2.27 H (0-0.5) ng/ml SARS-CoV-2, RNA, NAAT POSITIVE A* (NEGATIVE) Blood Type Antibody Screen Crossmatch Imaging Data Attestation: I personally reviewed and interpreted this imaging study as follows: My Impression: Chest x-rayno acute infiltrate, failure, pneumothorax seen Radiologist's Impression: Chest X-Ray 03/31/22 10:07 XR chest 1V portable HISTORY: 67 years-old Female weakness acute anemia with weakness COMPARISON: Chest radiograph 03/08/2022 TECHNIQUE: AP view of the chest FINDINGS: Cardiac silhouette is upper limits of normal in size. Dual lumen right IJ hemodialysis catheter distal tip terminates over the superior cavoatrial junction. No pneumothorax, pleural effusion or overt pulmonary edema. Interstitial coarsening of the lung bases a similar to prior. Degenerative changes of the shoulders and spine. IMPRESSION: No acute process. ACT 112: Negative or not required by law. The above report was generated using voice recognition software. It may contain grammatical, syntax or spelling errors. Electronically signed by: Deion Coyle M.D. 03/31/2022 10:30 AM ECG Data Attestation: I personally reviewed and interpreted this ECG as follows: Indication: + weakness Rate (beats per minute): 100 Rhythm: + normal sinus ECG Intervals/blocks: + Normal QRS, + Normal QT and + Normal SD ECG [place]: + Normal ECG ST segments: + Normal ST segments ECG Findings: + LVH; no PACs or no PVCs Comparison ECG Date: from (02/06/22) Change: no significant change MDM Narrative This patient comes in as described above. She was placed on a pvc monitor in room B7, she was sent here for low hemoglobin. she is been feeling weak and dizzy lately. She is a dialysis patient was scheduled of the dialysis today but did not have it because they told her to come here. She has no fever. Her blood pressure was on the low side however she was found to be significantly anemic with a hemoglobin of 6.5. She has chronic renal insufficiency but her potassium is not elevated. She missed dialysis today to come here but does not appear to be acutely fluid overloaded. I did discuss the case early on with Dr. Argueta her regulator mechanic as I wanted to make sure that we are all coordinated in her care given the fact that she may need dialysis while she is in the hospital. I did type and cross her as she will need a transfusion and apparently she does have some antibodies and they needed to get special blood from [place]. [facility], transfusion, and likely dialysis as well and further observation. Her COVID test did come back positive however she was recently hospitalized for COVID and I think this may be a residual from that infection. Continuous cardiac monitoring: Orders placed in EMR for continuous cardiac monitoring. Upon my interpretation patient was noted be in normal sinus rhythm rate of 90. Impression & Plan Weakness, Multiple myeloma, Anemia, Pancytopenia, ESRD needing dialysis, Lab test positive for detection of COVID-19 virus Discharge Plan Visit Data Chief Complaint: Referred by Doctor Stated Complaint: HEMOGLOBIN IS LOW ED Provider: Reggie Trammell Discharge Problem: Weakness, Multiple myeloma, Anemia, Pancytopenia, ESRD needing dialysis, Lab test positive for detection of COVID-19 virus Patient Disposition: Admitted As Inpatient Discharge Instructions Interventions: ED Discharge Assessment Last Done: 03/31/22 16:01
--- NOTE | 2022-03-31 10:31 | XRay Report ---
XR chest 1V portable HISTORY: 67 years-old Female weakness acute anemia with weakness COMPARISON: Chest radiograph 03/08/2022 TECHNIQUE: AP view of the chest FINDINGS: Cardiac silhouette is upper limits of normal in size. Dual lumen right IJ hemodialysis catheter dista l tip terminates over the superior cavoatrial junction. No pneumothorax, pleural effusion or overt pu lmonary edema. Interstitial coarsening of the lung bases a similar to prior. Degenerative changes of the shoulders and spine. IMPRESSION: No acute process. ACT 112: Negative or not required by law. The above report was generated using voice recognition software. It may contain grammatical, syntax o r spelling errors. Electronically signed by: Deion Coyle M.D. 03/31/2022 10:30 AM
[2022-03-31 11:14] LABS: Hemoglobin 6.5 g/dl (12.0-16.0); Mean Corpuscular Hemoglobin 30.4 pg (25.0-34.0); Mean Corpuscular Hgb Conc 34.2 g/dL (32.0-36.0); Mean Corpuscular Volume 88.8 fL (80.0-100.0); Mean Platelet Volume 12.1 fL (9.4-12.3); Platelet Count 48 K/uL (130-400); RDW Coefficient of Variation 15.2 % (11.5-14.5); RDW Standard Deviation 46.9 fL (36.4-46.3); Red Blood Count 2.14 M/uL (3.93-5.22); White Blood Count 1.84 K/ul (4.8-10.8)
[2022-03-31 11:15] LABS: Eosinophils # (auto) 0.01 K/uL (0-0.50); Eosinophils % (auto) 0.5 %; Immature Granulocytes # (auto) 0.01 K/uL (0.00-0.02); Immature Granulocytes % (auto) 0.5 %; Lymphocytes # (auto) 0.15 K/uL (1.2-3.4); Lymphocytes % (auto) 8.2 %; Monocytes # (auto) 0.21 K/uL (0.24-0.82); Monocytes % (auto) 11.4 %; Neutrophils # (auto) 1.46 K/uL (1.4-6.5); Neutrophils % (auto) 79.4 %
[2022-03-31 11:31] LABS: Alanine Aminotransferase 18 U/L (7-52); Albumin Globulin Ratio 0.5 (0.9-2); Albumin Level 2.8 gm/dl (3.4-5.0); Alkaline Phosphatase 70 U/L (34-104); Anion Gap 14 (3-11); Aspartate Aminotransferase 26 U/L (13-39); BUN Creatinine Ratio 5.9 (10-20); Bilirubin,Total 0.7 mg/dl (0.2-1.0); Blood Urea Nitrogen 34 mg/dl (6-23); Calcium 6.1 mg/dl (8.5-10.1); Carbon Dioxide 25 mmol/L (21-32); Chloride 93 mmol/L (98-107); Est GFR (Non-African American) 6.9 ml/min; Globulin 5.6 gm/dl (2.5-4.0); Glucose 111 mg/dl (70-99(Fasting)); Potassium 3.6 mmol/L (3.5-5.1); Sodium 132 mmol/L (136-145); Total Protein 8.4 gm/dl (6.0-8.3)
[2022-03-31] MEDS ORDERED: STAT IV STA (12:33)
[2022-03-31] MEDS ORDERED: CALCIUM GLUCONATE 10% 1,000 MG in DEXTROSE 5% 50 ML IV ONE (12:45)
[2022-03-31] MEDS ORDERED: ACETAMINOPHEN 325 MG TAB PO ONE (13:30)
--- NOTE | 2022-03-31 14:15 | History and Physical Report ---
DATE OF ADMISSION: 03/31/2022. CHIEF COMPLAINT: Weakness, hypotension, anemia. HISTORY OF PRESENT ILLNESS: This is a 67-year-old female with past medical history significant for diabetes, history of hyperlipidemia, hypertension, history of nephrotic syndrome and diffuse mesangial proliferative glomerulonephritis, status post kidney transplant in 2019 at [facility], was diagnosed with MGUS in 2015, recently diagnosed with MGUS converted to multiple myeloma, currently on chemo. She was admitted to the hospital on 03/08/2022, at that time she had a newly developed pathological fracture at T12 and old T11, L1, L3, L4 fractures. At that time also, she was found to have COVID pneumonia, requiring oxygen and at that time, her creatinine was around 5 and also hypomagnesemia and hypocalcemia. Hypocalcemia was thought to be from denosumab- induced hypocalcemia, she received denosumab on 02/23/2022 for hypercalcemia from multiple myeloma by oncology. She also has hyponatremia, sodium of 125. She also received 1 unit of irradiated packed RBC as hemoglobin dropped to 7 and she was transferred to [facility] for further care. In [facility], she was also treated with IV antibiotics. In [facility], she was evaluated by nephrology who monitored her renal function. She was seen by IR who recommended MRI prior to considering kyphoplasty, but the pain improved and MRI was deferred. Oncology debated about starting plasmapheresis and chemotherapy inpatient, but eventually decided to discuss further after discharge. During her stay, she ultimately required initiation of hemodialysis with progressive increase in BUN and electrolyte derangements in the setting of multiple myeloma. She underwent placement of tunneled catheter and had tolerated first 3 inpatient sessions and she was discharged on 03/24/2022 with nocturnal oxygen, outpatient hemodialysis setup and oncology followup. She is getting dialysis on Sunday, Sunday, and Sunday. She was to follow up with oncology yesterday for restarting chemo, but the patient felt very weak, tired and her back pain got worse yesterday, but not as bad as before and her blood pressure was running low. She states she stopped taking amlodipine, but she is taking Coreg and labs done a couple of days ago came with hemoglobin of 6.5 and nephrology advised her to come to the hospital for PRBC transfusions. The patient is currently alert, awake, and oriented. She says her cough is much improved, afebrile. She is eating and drinking okay. No difficulty swallowing. Denies any headache. No neck pain. Has some back pain, but not as bad as before. No chest pain, no abdominal pain. No pain in the legs. Ambulating without support. She says she gets some blood in the urine, but it did not happen in the last couple of days. No blood in the stools or black stools. No nausea or vomiting. Afebrile. Resting comfortably. ALLERGIES: No known drug allergies. PAST MEDICAL HISTORY: As mentioned above. PAST SURGICAL HISTORY: Colonoscopy, cystoscopy, hemorrhoidectomy, IR biopsy, MediPort placement, renal transplant. MEDICATIONS: Currently, the patient is on allopurinol 150 mg p.o. a.m., amlodipine 5 mg p.o. p.m., aspirin 81 mg p.o. daily, atorvastatin 40 mg p.o. daily, calcium plus vitamin D 1 tablet p.o. b.i.d., Coreg 12.5 mg p.o. b.i.d., vitamin D 1250 mcg p.o. weekly, omeprazole 20 mg p.o. a.m., Zofran 8 mg p.o. a.m., prednisone 5 mg p.o. daily, prochlorperazine 10 mg p.o. q.6 hours p.r.n., tramadol 50 mg p.o. q.6 hours p.r.n., Trulicity 3 mg subcutaneous weekly. FAMILY HISTORY: Significant for brother has chronic kidney disease, glioblastoma, diabetes, prostate cancer; mother has renal disease, autoimmune hepatitis; father had adenocarcinoma, unknown primary, at age of 77. SOCIAL HISTORY: , no smoking, no alcohol, no drug use. REVIEW OF SYSTEMS: As per HPI. Rest of the review of systems is negative. PHYSICAL EXAMINATION: GENERAL: The patient is of moderate build, not in acute distress. VITAL SIGNS: Temperature 36.7, pulse 94, respiratory rate 16, blood pressure 85/58, oxygen 98% on room air. HEENT: Pupils equal, round and reactive to light. Oral mucosa moist. NECK: No JVD, no neck masses. CARDIOVASCULAR: S1 and S2 heard. Regular rate and rhythm. No murmur, no gallop. RESPIRATORY SYSTEM: Normal AP diameter. No accessory muscle use. No wheezing, no crackles. ABDOMEN: Soft, bowel sounds present, nontender, no distention. CENTRAL NERVOUS SYSTEM: Cranial nerves II-XII grossly intact, nonfocal. EXTREMITIES: No obvious edema or erythema seen. LABORATORY DATA: WBC 1.8, hemoglobin 6.5, hematocrit 19, platelets 48. Sodium 132, potassium 3.6, chloride 93, bicarbonate 25, BUN 34, creatinine 5.8, serum glucose 111, calcium 6.1, total bilirubin 0.7, AST 26, ALT 18, alkaline phosphatase 70, albumin 2.8. SARS-CoV-2 rapid test positive. IMAGING: Chest x-ray: No acute process. EKG: Normal sinus rhythm at a rate of 100. No significant ST-T change was found. QTc 487. ASSESSMENT AND PLAN: This 67-year-old female presents with weakness, anemia and hypotension. 1. Weakness, anemia could be contributing, hypotension contributing, hypocalcemia contributing. We will monitor. 2. Anemia. Hemoglobin 6.5. Discussed with nephrology. Plan to give 2 units of irradiated blood. We will also check stool for Hemoccult. 3. Hypocalcemia. Giving 1 unit of calcium gluconate. Continue home calcium plus vitamin D tablets. Await nephrology input. 4. End-stage renal disease, on hemodialysis, currently back on hemodialysis.Dialysis as per nephrology 5. History of nephrotic syndrome and diffuse mesangial proliferative glomerulonephritis, status post kidney transplant in 2019, but recently restarted on hemodialysis. 6. History of multiple myeloma, on chemotherapy. Planned to see hematology- oncology yesterday and restart the chemo, but the patient was feeling very weak and tired. To follow up with hematology-oncology after discharge. 7. Cytopenias, pancytopenia, mostly from ongoing multiple myeloma. Follow up with hematology-oncology. Monitor for any bleeding.Will follow labs. 8. COVID positive, possibly from previous infection in February, she had COVID when she was admitted on 03/08/2022, but we will do COVID precautions for now. She says her symptoms are improving. She is still on oxygen, maybe 2 steps prior to discharge. 9. Hypotension. Possible sepsis. with elevated lactic acid and procalcitonin.Empirically started on iv vanco and zosyn with 48hr stop for now. She is not taking amlodipine. She is still taking Coreg 12.5 b.i.d. We will change Coreg to 6.5 b.i.d. with holding parameters. We will get an echocardiogram to get a better picture. We will also rule out infection with blood cultures, urinalysis Closely monitor in the telemetry floor. The patient is also getting prednisone currently. We will check a cortisol level. 10. Hyperlipidemia, on statin. 11. Hyponatremia, sodium of 131, on dialysis. 12. Chronic back pain. Continue tramadol p.r.n. If she gets worse, may need to do repeat MRI to see if she needs any kyphoplasty. 13. Diabetes, on Trulicity. We will place on insulin sliding scale, diabetic diet. Follow the blood sugars. 14. Deep venous thrombosis prophylaxis. Sequential compression devices for now. The patient has thrombocytopenia and anemia. DISPOSITION: Closely monitor in tele floor. Level 1, full code. Expect to discharge home and follow with family doctor. Job ID: [id number]
[2022-03-31] MEDS ORDERED: VANCOMYCIN CONSULT ACTIVE PRN ×2 (14:24→17:57)
[2022-03-31] MEDS ORDERED: VANCOMYCIN HCL 1,000 MG in SODIUM CHLORIDE 0.9% 250 ML IV SCH ×2 (14:30→17:57)
[2022-03-31] MEDS ORDERED: Patient's HEIGHT &/or WEIGHT Needed SCH (14:45)
[2022-03-31] MEDS ORDERED: PIPERACILLIN/TAZOBACTAM 3.375 GM in DEXTROSE 5% 100 ML IV ONE (15:00)
--- NOTE | 2022-03-31 15:37 | Pharmacy Report ---
Pharmacy PK ABX Note - Date of Service March 31, 2022 - Assessment and Plan Assessment Ms. Hays is a 67 year old F receiving IV Zosyn and Vancomycin for empiric treatment. She is a hemodialysis patient with dialysis schedule on Sun, Sun and Sun. Blood cultures pending. Per note last HD session was on 03/29 Day # 1 of antimicrobial therapy. Plan Vancomycin * Loading dose: 1500 mg IV x 1 (18 mg/kg) * Order random level based on HD schedule Pharmacy will continue to follow and will adjust dose/frequency as necessary. Thank you. Pharmacy has transitioned to AUC monitoring for vancomycin. AUC/LAMBERT is the preferred PK/PD target and is associated with decreased risk of nephrotoxicity compared to traditional trough targets.
[2022-03-31] MEDS ORDERED: NITROGLYCERIN SL 0.4 MG/TAB TAB SL PRN (17:57)
[2022-03-31] MEDS ORDERED: ACETAMINOPHEN 325 MG TAB PO PRN (17:57)
[2022-03-31] MEDS ORDERED: POLYETHYLENE (MIRALAX) 17 GM PACK PO PRN (17:57)
[2022-03-31] MEDS ORDERED: PROCHLORPERAZINE MALEATE 10 MG TAB PO PRN (17:57)
[2022-03-31] MEDS ORDERED: traMADol HCL 50 MG TABLET PO PRN (17:57)
[2022-03-31] MEDS ORDERED: SODIUM CHLORIDE 0.9% 1000ML 1,000 ML IV PRN ×2 (18:04→18:12)
[2022-03-31] MEDS: VANCOMYCIN HCL 1,500 MG in SODIUM CHLORIDE 0.9% 500 ML IV ONE ×2 (18:04→22:31)
[2022-03-31] MEDS ORDERED: EPOETIN ALFA 4,000 UNIT/ML VIAL IV ONE (18:12)
--- NOTE | 2022-03-31 19:02 | Nephrology Consultation ---
Date of Consultation March 31, 2022 Assessment & Plan (1) ESRD needing dialysis: for HD today: 3 hr tx. >BP has stabilized since ER : advised HD RN if sbp>120 consistently may try for UF 500 mL; if sbp 100-119 consistently, run net even (remove fluid to compensate for 500 mL pRBC); if sbp<100, do not remove fluid to compensate for pRBC infusion -next HD tentatively 04/03 or as needs dictate -daily bmp -f/u pending sepsis work up since lactate, procal elevated > on vanco /zosyn >ensure urine studies collected this evening (2) Anemia: for 2 units pRBC today > per [facility], pt receives 4000 epo w/ HD each tx despite MM dx; will continue that here -as per primary service (3) Hypocalcemia: has swung from hypercalcemia to severe/critical hypocalcemia in past month; now w/ moderate/borderline severe low Ca though no complications currently. had 1 gm in ER at my rec ca gluconate >recheck AM labs and consider another dose prn >tripled her Ca/D dose from 1 tab bid to 3 tabs bid History of Present Illness Reason for Consultation: ESRD on dialysis Requesting Physician: Dr Murcia Attending Physician: Nash Murcia MD History of Present Illness 67 y/o F whom I'm asked to see for dialysis needs was sent by me to ER today d/t progressive anemia, hypotension, generalized weakness. She had hgb 7.1 on 03/27 at dialysis but was delay in reporting this; then hgb 6.5 on 03/29 at HD. on 03/30 she cancelled multiple appts including one to receive/resume chemotherapy d/t generalized weakness and hypotension w/ SBP in 80s. complex PMH includes diabetes, hypertension. Remote hx spring 2017 of recurrent PE/DVT; not on AC currently. 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 She was first diagnosed with IgG lambda multiple myeloma in 2014. 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 She underwent donor renal transplant at [facility] in June 2018. 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 In spring 2020 she had her first treatment for relapsed multiple myeloma, 4 cycles of CyBorD completed October 2020. Evaluation at that time for amyloid was negative. She follows with both [facility] and [facility] renal transplant and hematology teams, as well as with local [facility] hematology. She was hospitalized [facility] 01/14-01/19 for a bone marrow biopsy, and initiation of treatment with IV cyclophosphamide; also needed rasburicase. She was d/c on oral cyclophosphamide and for txs with daratumumab/hyaluronidase, cyclophosphamide, and decadron. Her MM therapy was paused between 02/06 and 03/02 d/t worsening renal function and worsening anemia with UTI. Also hospitalized here 02/14-02/16 for SHANNON, hyponatremia; noted to have acute pathological fractures T12, L 1, L3, L4; 3.5 L ovarian cyst needing f/u imaging. She was transferred to [facility] where she stayed for about 24 hrs; ortho evaluated her at [facility] and no surgical intervention indicated. hospitalized here again last month w/ critical hypocalcemia after receiving prolia therapy as well as covid PNA and progressive allograft failure. she was transferred to [facility] where she was ultimately started on HD via [facility]. She had her first treatment at [facility] on 03/24 or 03/27. feels somewhat improved in ER; endorses mild dysuria x 1 day; voids cupfuls wilfredo ly; no gross hematuria; no sob, slight N this am w/ dry heaves x 1 Allergies Allergy/AdvReac Type Severity Reaction Status Date / Time No Known Allergies Allergy Verified 03/06/22 11:10 Home Medications Medication Instructions Recorded Confirmed Type allopurinol 300 mg tablet 150 mg PO QAM 02/14/22 03/08/22 History amlodipine 5 mg tablet 5 mg PO QPM 02/14/22 03/08/22 History aspirin 81 mg tablet,delayed 81 mg PO DAILY 02/14/22 03/08/22 History release atorvastatin 40 mg tablet 40 mg PO QAM 02/14/22 03/08/22 History carvedilol 12.5 mg tablet 12.5 mg PO BIDM 02/14/22 03/08/22 History omeprazole 20 mg tablet,delayed 20 mg PO QAM 02/14/22 03/08/22 History release ondansetron HCl 8 mg tablet 8 mg PO QAM 02/14/22 03/08/22 History prednisone 5 mg tablet 5 mg PO DAILY 02/14/22 03/08/22 History prochlorperazine maleate 10 mg 10 mg PO Q6H PRN NAUSEA/VOMITING 02/14/22 03/08/22 History tablet tramadol 50 mg tablet 50 mg PO Q6H PRN Pain 02/14/22 03/08/22 History dulaglutide 3 mg/0.5 mL 3 mg subcut WK 03/08/22 03/08/22 History subcutaneous pen injector (Trulicity) ergocalciferol (vitamin D2) 1,250 1,250 mcg PO Q4WK 03/08/22 03/08/22 History mcg (50,000 unit) capsule (Vitamin D2) calcium carbonate 500 mg-vitamin 1 tab PO BID 03/31/22 03/31/22 History D3 3.125 mcg (125 unit) tablet Patient History Medical History C3 glomerulonephritis DM II (diabetes mellitus, type II), controlled ESRD (end stage renal disease) HTN (hypertension) Multiple myeloma Pathological fracture Renal transplant recipient Surgical History Hx of kidney transplant S/P ACL repair S/P hemorrhoidectomy Family History Father Cancer Brother Kidney disease Glioblastoma Heart disease Diabetes MDS (myelodysplastic syndrome) Prostate cancer Mother Autoimmune hepatitis Social History Smoking Status: Never smoker Hx Alcohol Use: No Hx Substance Use: No Preferred Language: French Communication Ability: Effective High Climber Required: No Beliefs That Will Affect Care: None Current Living Situation: Spouse Other Information That Helps Us Care for You: No Feels Safe at Home: Yes Safety Concerns: Feels Safe At This Time Assistive Devices: Oxygen - Continuous Review of Systems Review of Systems: All systems reviewed & are unremarkable except as noted in HPI & below Physical Exam Constitutional: well developed and well nourished Eyes: EOM intact bilaterally ENMT: Ears: no external ear abnormality Nose: no external nose abnormality Mouth: + dry oral mucous membranes Neck: no nuchal rigidity Respiratory: normal respiratory effort Auscultation: lungs clear to auscultation bilaterally and + diminished lung sounds Cardiovascular: Rate/Rhythm: regular rhythm and + tachycardic Extremities: no edema Gastrointestinal (Abdomen): Inspection/Auscultation: normal bowel sounds Percussion/Palpation: abdomen soft; abdomen nontender Musculoskeletal: Extremities: strength 5/5 throughout Skin: no rashes, warm and dry Neurologic: lopez, fluent speech, no tremor Psychiatric: Orientation: oriented x 3 Speech: normal rate/rhythm/volume of speech Insight: good insight Judgement: good judgement Results & Data ([facility]) Vital Signs (Past 12 Hours) Vital Signs Temp Pulse Pulse Resp BP BP Pulse Ox 03/31/22 16:30 03/31/22 16:30 36.6 C 94 H 20 123/78 97 03/31/22 18:30 87 127/78 03/31/22 18:00 89 131/78 03/31/22 17:56 88 136/77 03/31/22 17:46 36.7 C 91 H 03/31/22 15:30 93 H 17 104/63 03/31/22 15:00 93 H 15 03/31/22 14:30 93 H 15 03/31/22 14:00 93 H 12 95/70 L 03/31/22 13:30 95 H 15 03/31/22 13:00 94 H 11 L 98 03/31/22 13:00 104/63 03/31/22 12:43 99 H 33 H 99 03/31/22 12:43 98/51 L 03/31/22 12:30 99 H 14 99 03/31/22 16:01 03/31/22 12:00 95 H 12 85/58 L 99 03/31/22 11:30 95 H 12 99 03/31/22 11:00 98 H 14 100 03/31/22 10:51 96 H 15 90/58 L 100 03/31/22 12:23 94 H 16 98 03/31/22 09:43 36.7 C 100 H 20 92/56 L 100 O2 Del Method O2 Flow Rate 03/31/22 16:30 Room Air 03/31/22 16:30 Room Air 03/31/22 18:30 03/31/22 18:00 03/31/22 17:56 03/31/22 17:46 03/31/22 15:30 03/31/22 15:00 03/31/22 14:30 03/31/22 14:00 03/31/22 13:30 03/31/22 13:00 03/31/22 13:00 03/31/22 12:43 03/31/22 12:43 03/31/22 12:30 03/31/22 16:01 Room Air 03/31/22 12:00 03/31/22 11:30 03/31/22 11:00 03/31/22 10:51 03/31/22 12:23 Room Air 03/31/22 09:43 Nasal Cannula 2 Laboratory Results 03/31/22 10:34 03/31/22 10:34 Diagnostic Findings ecg Vent. Rate : 100 BPM Atrial Rate : 100 BPM P-R Int : 168 ms QRS Dur : 088 ms QT Int : 378 ms P-R-T Axes : 022 -05 018 degrees QTc Int : 487 ms Poor data quality, interpretation may be adversely affected Normal sinus rhythm Moderate voltage criteria for LVH, may be normal variant Borderline ECG When compared with ECG of 09-MAR-2022 05:19, No significant change was found cxr no acute process (1) Anemia Anemia type: unspecified type Qualified Code(s): D64.9 - Anemia, unspecified
--- NOTE | 2022-03-31 20:12 | Electrocardiogram Report ---
Test Reason : Blood Pressure : / mmHG Vent. Rate : 100 BPM Atrial Rate : 100 BPM P-R Int : 168 ms QRS Dur : 088 ms QT Int : 378 ms P-R-T Axes : 022 -05 018 degrees QTc Int : 487 ms Poor data quality, interpretation may be adversely affected Normal sinus rhythm Moderate voltage criteria for LVH, may be normal variant Borderline ECG When compared with ECG of 09-MAR-2022 05:19, No significant change was found Confirmed by Jayme Coates ([id number]) on 03/31/2022 8:12:23 PM Referred By: Radhika Rogel Confirmed By:Kem Coates
[2022-03-31] MEDS ORDERED: carvediloL 6.25 MG TAB PO SCH (21:00)
[2022-03-31] MEDS ORDERED: CALCIUM 600MG + VIT D 400 IU TAB PO SCH (21:00)
[2022-03-31] MEDS: INSULIN ASPART PER UNIT SC SCH ×2 (21:34→22:29)
[2022-03-31] MEDS: CALCIUM 600MG + VIT D 400 IU TAB PO SCH (22:28)
[2022-03-31] MEDS ORDERED: PIPERACILLIN/TAZOBACTAM 4.5 GM in DEXTROSE 5% 100 ML IV SCH (23:00)
[2022-04-01] MEDS ORDERED: carvediloL 6.25 MG TAB PO SCH ×2 (04:00→19:15)
[2022-04-01 05:01] LABS: BUN Creatinine Ratio 4.6 (10-20); Creatinine Clr Calc Pharmacy 17.2 ml/min; Est GFR (African American) 14.7 ml/min; Est GFR (Non-African American) 12.7 ml/min; Magnesium 1.5 mg/dl (1.7-2.4); Potassium 3.5 mmol/L (3.5-5.1)
[2022-04-01 05:02] LABS: Hematocrit (blood only) 25.3 % (34.1-44.9); Hemoglobin 8.8 g/dl (12.0-16.0); Mean Corpuscular Hemoglobin 29.3 pg (25.0-34.0); Mean Corpuscular Hgb Conc 34.8 g/dL (32.0-36.0); Mean Corpuscular Volume 84.3 fL (80.0-100.0); Platelet Count 46 K/uL (130-400); RDW Standard Deviation 44.7 fL (36.4-46.3); White Blood Count 1.86 K/ul (4.8-10.8)
[2022-04-01 05:03] LABS: Eosinophils # (auto) 0.01 K/uL (0-0.50); Eosinophils % (auto) 0.5 %; Immature Granulocytes # (auto) 0.05 K/uL (0.00-0.02); Immature Granulocytes % (auto) 2.7 %; Lymphocytes # (auto) 0.18 K/uL (1.2-3.4); Lymphocytes % (auto) 9.7 %; Monocytes # (auto) 0.23 K/uL (0.24-0.82); Monocytes % (auto) 12.4 %; Neutrophils # (auto) 1.39 K/uL (1.4-6.5); Neutrophils % (auto) 74.7 %; Platelet Estimate Decreased (Normal); RBC Morphology Unremarkable
[2022-04-01] MEDS: PIPERACILLIN/TAZOBACTAM 3.375 GM in DEXTROSE 5% 100 ML IV SCH ×2 (06:30→17:24)
[2022-04-01] MEDS: CALCIUM 600MG + VIT D 400 IU TAB PO SCH ×2 (08:39→20:12)
[2022-04-01] MEDS: ASPIRIN 81 MG ECTAB PO SCH (08:39)
[2022-04-01] MEDS: PANTOprazole 40 MG TAB PO SCH (08:39)
[2022-04-01] MEDS: ATORVASTATIN 40 MG TAB PO SCH (08:39)
[2022-04-01] MEDS: predniSONE 5 MG TAB PO SCH (08:39)
[2022-04-01] MEDS: allopurinoL 300 MG TAB PO SCH (08:39)
[2022-04-01] MEDS ORDERED: STAT IV STA (08:54)
[2022-04-01] MEDS ORDERED: CHOLECALCIFEROL 1,000 UNITS 25 MCG TAB PO SCH (09:00)
--- NOTE | 2022-04-01 09:09 | Nephrology Progress Note ---
Date of Service April 01, 2022 Assessment & Plan Admission and Anticipated Discharge Date Admission Date: March 31, 2022 Subjective Assessment & Plan (1) ESRD needing dialysis: had HD yesterday: 3 hr tx. No issues with Dialysis. She feels better/Stronger after PRBC and better electrolytes -next HD tentatively 04/03 or as needs dictate -daily renal panel + mag (2) Anemia: 2 units pRBC per [facility], pt receives 4000 epo w/ HD each tx despite MM dx; will continue that here -as per primary service (3) Hypocalcemia: has swung from hypercalcemia to severe/critical hypocalcemia in past month; now w/ moderate/borderline severe low Ca though no complications currently. has had very low Ca++ for a while now. Add Cholecalciferol 2000 units daily. Stop ergocalciferol Continue High dose PO calcium 3 tabs tid. Also give 3 gm iv calc gluconate and 3 gm iv mag to speed up her discharge. she will need po mag also for discharge given ESRD will use lower dose of mag ox 400 daily. Lot of electrolyte issues so will need to have renal panel and mag checked often as outpt. S--very tearful. wants to go home today. Ca and mag still low. Physical Exam Constitutional: well developed and well nourished Eyes: EOM intact bilaterally ENMT: Ears: no external ear abnormality Nose: no external nose abnormality Mouth: + dry oral mucous membranes Neck: no nuchal rigidity Respiratory: normal respiratory effort Auscultation: lungs clear to auscultation bilaterally and + diminished lung sounds Cardiovascular: Rate/Rhythm: regular rhythm and + tachycardic Extremities: no edema Gastrointestinal (Abdomen): Inspection/Auscultation: normal bowel sounds Percussion/Palpation: abdomen soft; abdomen nontender Musculoskeletal: Extremities: strength 5/5 throughout Skin: no rashes, warm and dry Neurologic: lopez, fluent speech, no tremor Psychiatric: Orientation: oriented x 3 Speech: normal rate/rhythm/volume of speech Insight: good insight Judgement: good judgement Results & Data ([facility]) Vital Signs (Past 12 Hours) Vital Signs Temp Pulse Pulse Resp BP BP Pulse Ox 04/01/22 07:37 36.7 C 93 H 16 165/91 H 95 04/01/22 06:54 93 H 04/01/22 03:11 37.0 C 100 H 16 167/95 H 96 04/01/22 02:21 102 H 04/01/22 02:11 37.3 C 101 H 162/97 H 92 04/01/22 01:11 37.3 C 105 H 151/90 H 93 04/01/22 00:11 37.3 C 103 H 151/89 H 94 03/31/22 23:41 37.5 C 102 H 151/89 H 94 03/31/22 23:40 37.5 C 105 H 151/89 H 94 03/31/22 23:26 37.2 C 104 H 135/89 93 03/31/22 23:10 37.3 C 99 H 18 134/78 93 03/31/22 22:33 36.7 C 103 H 129/87 94 03/31/22 21:20 37 C 90 149/83 H O2 Del Method 04/01/22 07:37 Room Air 04/01/22 06:54 04/01/22 03:11 04/01/22 02:21 04/01/22 02:11 04/01/22 01:11 04/01/22 00:11 03/31/22 23:41 03/31/22 23:40 03/31/22 23:26 03/31/22 23:10 03/31/22 22:33 Room Air 03/31/22 21:20
[2022-04-01] MEDS ORDERED: CALCIUM GLUCONATE 10% 3,000 MG in DEXTROSE 5% 100 ML IV ONE (09:15)
[2022-04-01] MEDS: INSULIN ASPART PER UNIT SC SCH ×4 (09:41→20:12)
[2022-04-01] MEDS: MAGNESIUM SULFATE / D5W 1 GM/100 ML BAG IV SCH ×3 (09:41→13:43)
[2022-04-01] MEDS: MAGNESIUM OXIDE 400 MG TAB PO SCH (09:42)
[2022-04-01] MEDS: CHOLECALCIFEROL 1,000 UNITS 25 MCG TAB PO SCH (09:42)
--- NOTE | 2022-04-01 10:27 | Pharmacy Report ---
Pharmacy PK ABX Note - Date of Service April 01, 2022 - Assessment and Plan Assessment 67 yo F receiving IV Vancomycin and Zosyn empirically for possible sepsis. * PMHx significant for T2DM, MGUS, renal transplant on HD MWF, and multiple myeloma currently on chemo and steroids. * Afebrile. Lactate elevated at 3.5. Received HD upon admission last evening. * MRSA swab negative. Blood cultures pending. Plan Vancomycin * Vancomycin 1500 mg IV x 1 following HD last night. * Random level obtained 04/01/22 resulted as 11.4 mcg/mL. This is subtherapeutic. * No HD planned until 04/03/22 at this point. Given current level, will give a one time dose of Vancomycin 750 mg IV today. * Abx are ordered empirically so will not order a random level prior to HD on Sunday unless therapy is to extend beyond 48 hours. Zosyn * 3.375 g IV every 12 hours Pharmacy will continue to follow and will adjust dose/frequency as necessary. Thank you. Pharmacy has transitioned to AUC monitoring for vancomycin. AUC/LAMBERT is the preferred PK/PD target and is associated with decreased risk of nephrotoxicity compared to traditional trough targets.
[2022-04-01] MEDS ORDERED: VANCOMYCIN HCL 750 MG in SODIUM CHLORIDE 0.9% 250 ML IV ONE (11:00)
--- NOTE | 2022-04-01 11:41 | Hospitalist Progress Note ---
Date of Service April 01, 2022 Assessment & Plan (1) ESRD needing dialysis: (2) Pancytopenia: (3) Anemia: Plan: History of renal transplant at [facility] in June 2018 Recently started on hemodialysis after her transplanted kidney failed. She received her first hemodialysis treatment in the [facility] at end of February Getting treatment for multiple myeloma; Hypocalcemia due to denosumab. This admission, presented with hypotension, weakness and anemia Hemoglobin on admission 6.5 Received 2 units with hemodialysis on 03/31. Also received replacement calcium and magnesium. Plan; Continue on empiric antibiotic for now and await final blood culture report to rule out bacteremia Monitor CBC daily. -HD as per nephrology. (4) Hypocalcemia: Plan: Status post 5 g of IV calcium so far. Also on cholecalciferol 2000 units. On high-dose p.o. calcium tablet 3 tabs. (5) Lab test positive for detection of COVID-19 virus: Plan: COVID-19 positive this admission as well. Asymptomatic; given her immunocompromise status; likely unable to clear the virus. Monitor for now. (6) Multiple myeloma: Plan: Follows up with oncology as outpatient. Plan Chronic conditions: Hyponatremia, sodium of 131, on dialysis. Chronic back pain, history of pathological fracture continue tramadol p.r.n. If she gets worse, may need to do repeat MRI to see if she needs any kyphoplasty. Diabetes, on Trulicity. We will place on insulin sliding scale, diabetic diet. Follow the blood sugars. Deep venous thrombosis prophylaxis. Sequential compression devices for now. The patient has thrombocytopenia and anemia. Full code Admission and Anticipated Discharge Date Admission Date: March 31, 2022 Subjective Patient seen and examined at bedside. She reports improvement in her weakness. She is comfortable; not in any distress. Review of Systems Review of Systems: All systems reviewed & are unremarkable except as noted in Subjective Physical Exam Physical Exam: Constitutional: Alert, oriented x3. comfortable. Neck: trachea midline, no thyromegaly normal visual inspection Respiratory: b/l clear breath sounds. Cardiovascular: RRR, no murmur, no edema Vessels: no JVD or carotid bruit Chest: normal inspection of chest Abdomen: normal bowel sounds, soft, nontender, no hepatosplenomegaly Musculoskeletal: no cyanosis or clubbing, extremities motor strength 5/5 Skin: edema +nt Neurologic: PERRL, EOMI, accommodation nl, no face palsy, no dysarthria CN's II- XI intact bilaterally and moves all extremities Psychiatric: A+Ox3, euthymic affect Lymphatic: no cervical or axillary lymphadenopathy : deferred Results & Data Results & Data ([facility]) Vital Signs (Past 12 Hours) Vital Signs Temp Pulse Pulse Resp BP BP Pulse Ox 04/01/22 11:00 36.9 C 92 H 16 164/95 H 94 04/01/22 07:37 36.7 C 93 H 16 165/91 H 95 04/01/22 06:54 93 H 04/01/22 03:11 37.0 C 100 H 16 167/95 H 96 04/01/22 02:21 102 H 04/01/22 02:11 37.3 C 101 H 162/97 H 92 04/01/22 01:11 37.3 C 105 H 151/90 H 93 04/01/22 00:11 37.3 C 103 H 151/89 H 94 03/31/22 23:41 37.5 C 102 H 151/89 H 94 03/31/22 23:40 37.5 C 105 H 151/89 H 94 O2 Del Method 04/01/22 11:00 Room Air 04/01/22 07:37 Room Air 04/01/22 06:54 04/01/22 03:11 04/01/22 02:21 04/01/22 02:11 04/01/22 01:11 04/01/22 00:11 03/31/22 23:41 03/31/22 23:40 Laboratory Results Laboratory Results WBC 1.86 K/ul (4.8-10.8) L 04/01/22 04:06 RBC 3.00 M/uL (3.93-5.22) L 04/01/22 04:06 Hgb 8.8 g/dl (12.0-16.0) L 04/01/22 04:06 Hct 25.3 % (34.1-44.9) L 04/01/22 04:06 MCV 84.3 fL (80.0-100.0) D 04/01/22 04:06 MCH 29.3 pg (25.0-34.0) 04/01/22 04:06 MCHC 34.8 g/dL (32.0-36.0) 04/01/22 04:06 RDW Std Deviation 44.7 fL (36.4-46.3) 04/01/22 04:06 RDW Coeff of [place] 15.0 % (11.5-14.5) H 04/01/22 04:06 Plt Count 46 K/uL (130-400) L 04/01/22 04:06 MPV 11.0 fL (9.4-12.3) 04/01/22 04:06 Immature Gran % (Auto) 2.7 % 04/01/22 04:06 Neut % (Auto) 74.7 % 04/01/22 04:06 Lymph % (Auto) 9.7 % 04/01/22 04:06 [place] % (Auto) 12.4 % 04/01/22 04:06 Eos % (Auto) 0.5 % 04/01/22 04:06 Baso % (Auto) 0.0 % 04/01/22 04:06 Neut # (Auto) 1.39 K/uL (1.4-6.5) L 04/01/22 04:06 Lymph # (Auto) 0.18 K/uL (1.2-3.4) L 04/01/22 04:06 [place] # (Auto) 0.23 K/uL (0.24-0.82) L 04/01/22 04:06 Eos # (Auto) 0.01 K/uL (0-0.50) 04/01/22 04:06 Baso # (Auto) 0.00 K/uL (0-0.2) 04/01/22 04:06 Immature Gran # (Auto) 0.05 K/uL (0.00-0.02) H 04/01/22 04:06 Platelet Estimate Decreased (Normal) L 04/01/22 04:06 RBC Morphology Unremarkable 04/01/22 04:06 Sodium 134 mmol/L (136-145) L 04/01/22 04:06 Potassium 3.5 mmol/L (3.5-5.1) 04/01/22 04:06 Chloride 101 mmol/L (98-107) 04/01/22 04:06 Carbon Dioxide 24 mmol/L (21-32) 04/01/22 04:06 Anion Gap 9 (3-11) 04/01/22 04:06 BUN 16 mg/dl (6-23) 04/01/22 04:06 Creatinine 3.51 mg/dl (0.6-1.2) H D 04/01/22 04:06 Est Cr Clr Drug Dosing 17.2 ml/min 04/01/22 04:06 Est GFR ( Amer) 14.7 ml/min 04/01/22 04:06 Est GFR (Non-Af Amer) 12.7 ml/min 04/01/22 04:06 BUN/Creatinine Ratio 4.6 (10-20) L 04/01/22 04:06 Glucose 72 mg/dl (70-99(Fasting)) 04/01/22 04:06 POC Glucose 108 mg/dl (70-99) H 04/01/22 11:17 Lactate 2.4 mmol/L (0.4-2.0) H* 03/31/22 18:03 Calcium 7.0 mg/dl (8.5-10.1) L 04/01/22 04:06 Magnesium 1.5 mg/dl (1.7-2.4) L 04/01/22 04:06 Total Bilirubin 0.7 mg/dl (0.2-1.0) 03/31/22 10:34 AST 26 U/L (13-39) 03/31/22 10:34 ALT 18 U/L (7-52) 03/31/22 10:34 Alkaline Phosphatase 70 U/L (34-104) 03/31/22 10:34 Total Protein 8.4 gm/dl (6.0-8.3) H 03/31/22 10:34 Albumin 2.8 gm/dl (3.4-5.0) L 03/31/22 10:34 Globulin 5.6 gm/dl (2.5-4.0) H 03/31/22 10:34 Albumin/Globulin Ratio 0.5 (0.9-2) L 03/31/22 10:34 Procalcitonin 2.27 ng/ml (0-0.5) H 03/31/22 10:36 Random Cortisol 2.77 mcg/dl 03/31/22 21:04 Nasal Screen MRSA (PCR) Negative (Negative) 03/31/22 18:35 Random Vancomycin 11.4 mcg/ml (10-20) 04/01/22 04:06 SARS-CoV-2, RNA, NAAT POSITIVE (NEGATIVE) A* 03/31/22 10:49 Blood Type A Positive 03/31/22 10:28 Antibody Screen POSITIVE A 03/31/22 10:28 Antibody Identification Panagglutinin due to drug 03/31/22 10:28 Antibody ID Referred 03/31/22 10:28 Antibody ID Comment Not Reportable 03/31/22 10:28 Crossmatch See Detail 03/31/22 10:28 Impressions Chest X-Ray 03/31/22 10:07 XR chest 1V portable HISTORY: 67 years-old Female weakness acute anemia with weakness COMPARISON: Chest radiograph 03/08/2022 TECHNIQUE: AP view of the chest FINDINGS: Cardiac silhouette is upper limits of normal in size. Dual lumen right IJ hemodialysis catheter distal tip terminates over the superior cavoatrial junction. No pneumothorax, pleural effusion or overt pulmonary edema. Interstitial coarsening of the lung bases a similar to prior. Degenerative changes of the shoulders and spine. IMPRESSION: No acute process. ACT 112: Negative or not required by law. The above report was generated using voice recognition software. It may contain grammatical, syntax or spelling errors. Electronically signed by: Deion Coyle M.D. 03/31/2022 10:30 AM (1) Anemia Anemia type: unspecified type Qualified Code(s): D64.9 - Anemia, unspecified (2) Multiple myeloma Multiple myeloma remission status: unspecified Qualified Code(s): C90.00 - Multiple myeloma not having achieved remission
[2022-04-01 14:32] LABS: Appearance Urine Cloudy (Clear); Bilirubin Urine Negative (Negative); Blood Urine 3+ (Negative); Color Urine Red; Glucose Urine UA Negative (Negative); Ketones Urine Negative (Negative); Leukocyte Esterase Urine Trace (Negative); Nitrite Urine Negative (Negative); Protein Urine 3+ (Negative); Urobilinogen Urine Negative (Negative); pH Urine 8.5 (4.5-7.5)
[2022-04-01 14:36] LABS: RBC Urine >30 /hpf (0-4)
[2022-04-01 14:37] LABS: WBC Urine >30 /hpf (0-5)
[2022-04-01 14:38] LABS: Bacteria Urine Negative (Negative); Epithelial Cell Urine 0-5 /lpf (0-5); Hyaline Casts Urine 0-5 /lpf (0-5)
[2022-04-01] MEDS ORDERED: METOCLOPRAMIDE HCL INJ 5 MG/ML 2 ML VIAL IV PRN (16:53)
--- NOTE | 2022-04-01 19:14 | Communication Note ---
Date of Service: April 01, 2022 Made aware by RN of uncontrolled blood pressure the last 24 hours. SBP 150-170s the last 24 hours. Patient asymptomatic as per RN. AP Hypertensive urgency (Some BP meds on admission due to hypotension.) Resume amlodipine Titrate Coreg Will relay to AM provider.
[2022-04-01] MEDS ORDERED: amLODIPine BESYLATE 5 MG TAB PO SCH (19:15)
[2022-04-02] MEDS ORDERED: amLODIPine BESYLATE 5 MG TAB PO ONE (03:23)
[2022-04-02] MEDS ORDERED: carvediloL 6.25 MG TAB PO SCH (03:25)
[2022-04-02] MEDS ORDERED: carvediloL 12.5 MG TAB PO SCH (03:30)
[2022-04-02] MEDS: PIPERACILLIN/TAZOBACTAM 3.375 GM in DEXTROSE 5% 100 ML IV SCH (05:35)
[2022-04-02] MEDS: INSULIN ASPART PER UNIT SC SCH ×2 (07:38→11:53)
[2022-04-02 07:51] LABS: Eosinophils # (auto) 0.01 K/uL (0-0.50); Eosinophils % (auto) 0.5 %; Hematocrit (blood only) 25.7 % (34.1-44.9); Immature Granulocytes # (auto) 0.04 K/uL (0.00-0.02); Immature Granulocytes % (auto) 2.2 %; Lymphocytes # (auto) 0.18 K/uL (1.2-3.4); Lymphocytes % (auto) 9.8 %; Mean Platelet Volume 10.4 fL (9.4-12.3); Monocytes # (auto) 0.27 K/uL (0.24-0.82); Monocytes % (auto) 14.8 %; Neutrophils # (auto) 1.33 K/uL (1.4-6.5); Neutrophils % (auto) 72.7 %; Platelet Count 40 K/uL (130-400); White Blood Count 1.83 K/ul (4.8-10.8)
[2022-04-02 08:33] LABS: Albumin Globulin Ratio 0.5 (0.9-2); Albumin Level 2.6 gm/dl (3.4-5.0); BUN Creatinine Ratio 4.5 (10-20); Calcium 8.8 mg/dl (8.5-10.1); Creatinine Clr Calc Pharmacy 11.9 ml/min; Est GFR (African American) 9.3 ml/min; Globulin 5.5 gm/dl (2.5-4.0); Magnesium 2.6 mg/dl (1.7-2.4); Potassium 3.7 mmol/L (3.5-5.1); Total Protein 8.1 gm/dl (6.0-8.3)
[2022-04-02 08:40] LABS: Mean Corpuscular Hemoglobin 29.3 pg (25.0-34.0); Mean Corpuscular Volume 83.7 fL (80.0-100.0); RDW Coefficient of Variation 15.9 % (11.5-14.5); RDW Standard Deviation 47.2 fL (36.4-46.3); Red Blood Count 3.07 M/uL (3.93-5.22)
[2022-04-02] MEDS: CALCIUM 600MG + VIT D 400 IU TAB PO SCH (08:55)
[2022-04-02] MEDS: MAGNESIUM OXIDE 400 MG TAB PO SCH (08:55)
[2022-04-02] MEDS: ATORVASTATIN 40 MG TAB PO SCH (08:55)
[2022-04-02] MEDS: ASPIRIN 81 MG ECTAB PO SCH (08:56)
[2022-04-02] MEDS: CHOLECALCIFEROL 1,000 UNITS 25 MCG TAB PO SCH (08:56)
[2022-04-02] MEDS: predniSONE 5 MG TAB PO SCH (08:56)
[2022-04-02] MEDS: PANTOprazole 40 MG TAB PO SCH (08:56)
[2022-04-02] MEDS: allopurinoL 300 MG TAB PO SCH (08:56)
--- NOTE | 2022-04-02 12:51 | Discharge Summary ---
Date of Service April 02, 2022 Admission HPI Per Admitting Provider This is a 67-year-old female with past medical history significant for diabetes, history of hyperlipidemia, hypertension, history of nephrotic syndrome and diffuse mesangial proliferative glomerulonephritis, status post kidney transplant in 2019 at [place], was diagnosed with MGUS in 2014, recently diagnosed with MGUS converted to multiple myeloma, currently on chemo. She was admitted to the hospital on 03/08/2022, at that time she had a newly developed pathological fracture at T12 and old T11, L1, L3, L4 fractures. At that time also, she was found to have COVID pneumonia, requiring oxygen and at that time, her creatinine was around 5 and also hypomagnesemia and hypocalcemia. Hypocalcemia was thought to be from denosumab-induced hypocalcemia, she received denosumab on 02/23/2022 for hypercalcemia from multiple myeloma by oncology. She also has hyponatremia, sodium of 125. She also received 1 unit of irradiated packed RBC as hemoglobin dropped to 7 and she was transferred to [place] for further care. In [place], she was also treated with IV antibiotics. In [place], she was evaluated by nephrology who monitored her renal function. She was seen by IR who recommended MRI prior to considering ky phoplasty, but the pain improved and MRI was deferred. Oncology debated about starting plasmapheresis and chemotherapy inpatient, but eventually decided to discuss further after discharge. During her stay, she ultimately required initiation of hemodialysis with progressive increase in BUN and electrolyte derangements in the setting of multiple myeloma. She underwent placement of tunneled catheter and had tolerated first 3 inpatient sessions and she was discharged on 03/24/2022 with nocturnal oxygen, outpatient hemodialysis setup and oncology followup. She is getting dialysis on Sunday, Sunday, and Sunday. She was to follow up with oncology yesterday for restarting chemo, but the patient felt very weak, tired and her back pain got worse yesterday, but not as bad as before and her blood pressure was running low. She states she stopped taking amlodipine, but she is taking Coreg and labs done a couple of days ago came with hemoglobin of 6.5 and nephrology advised her to come to the hospital for PRBC transfusions. The patient is currently alert, awake, and oriented. She says her cough is much improved, afebrile. She is eating and drinking okay. No difficulty swallowing. Denies any headache. No neck pain. Has some back pain, but not as bad as before. No chest pain, no abdominal pain. No pain in the legs. Ambulating without support. She says she gets some blood in the urine, but it did not happen in the last couple of days. No blood in the stools or black stools. No nausea or vomiting. Afebrile. Resting comfortably. Admission Exam Per Admitting Provider GENERAL: The patient is of moderate build, not in acute distress. VITAL SIGNS: Temperature 36.7, pulse 94, respiratory rate 16, blood pressure 85/58, oxygen 98% on room air. HEENT: Pupils equal, round and reactive to light. Oral mucosa moist. NECK: No JVD, no neck masses. CARDIOVASCULAR: S1 and S2 heard. Regular rate and rhythm. No murmur, no gallop. RESPIRATORY SYSTEM: Normal AP diameter. No accessory muscle use. No wheezing, no crackles. ABDOMEN: Soft, bowel sounds present, nontender, no distention. CENTRAL NERVOUS SYSTEM: Cranial nerves II-XII grossly intact, nonfocal. EXTREMITIES: No obvious edema or erythema seen. Principal Diagnosis 1) Anemia 2) Hypocalcemia 3) Hypomagnesemia 4) ESRD on HD Discharge Exam Constitutional: Alert, oriented x3. comfortable. Neck: trachea midline, no thyromegaly normal visual inspection Respiratory: b/l clear breath sounds. Cardiovascular: RRR, no murmur, no edema Vessels: no JVD or carotid bruit Chest: normal inspection of chest Abdomen: normal bowel sounds, soft, nontender, no hepatosplenomegaly Musculoskeletal: no cyanosis or clubbing, extremities motor strength 5/5 Skin: edema +nt Neurologic: PERRL, EOMI, accommodation nl, no face palsy, no dysarthria CN's II- XI intact bilaterally and moves all extremities Psychiatric: A+Ox3, euthymic affect Lymphatic: no cervical or axillary lymphadenopathy : deferred Discharge Data Allergies Allergy/AdvReac Type Severity Reaction Status Date / Time No Known Allergies Allergy Verified 03/06/22 11:10 Consultations 03/31/22 11:33 ED Decision to Admit Stat 03/31/22 17:57 Consult Nephrology Routine Hospital Course (1) ESRD needing dialysis: (2) Pancytopenia: (3) Anemia: History of renal transplant at [facility] in June 2018 Recently started on hemodialysis after her transplanted kidney failed. She received her first hemodialysis treatment in the [facility] at end of February Getting treatment for multiple myeloma; Hypocalcemia due to denosumab. This admission, presented with hypotension, weakness and anemia Hemoglobin on admission 6.5 Received 2 units with hemodialysis on 03/31. Also received replacement calcium and magnesium. Plan; Hemoglobin at the time of discharge was 9. No sign of blood loss. Patient to follow-up tomorrow to hemodialysis. Blood culture negative during the admission. Urine culture is pending but patient denies any signs and symptoms of UTI. No need to treat for asymptomatic bacteriuria in ESRD. Discussed with patient. (4) Hypocalcemia: Status post 5 g of IV calcium during hospitalization Calcium normal at discharge. Prescription for high-dose of calcium sent to the pharmacy. Prescription for magnesium and vitamin D sent as well. (5) Lab test positive for detection of COVID-19 virus: COVID-19 positive this admission as well. Asymptomatic; given her immunocompromise status; likely unable to clear the virus. Monitor for now. (6) Multiple myeloma: Follows up with oncology as outpatient. Total Time Total Time Spent Total Time Spent (In Minutes): 40 Total Time Includes: Examination of the Patient, Discharge Planning, Medication Reconciliation, Communication With Other Providers and Other Discharge Plan Discharge Items Patient Disposition: Home - Self-Care Reason For Visit: ANEMIA, HYPOTENSION Discharge Diagnosis: (1) ESRD needing dialysis: (2) Pancytopenia: (3) Anemia (4) Hypocalcemia Activity: Resume your previous activity Non-emergency contact: Primary Care Provider Call non-emergency contact if: you have any medication questions and your symptoms worsen Follow-up/Referrals: Peace Overton DO [Primary Care Provider] - Diet: Dialysis Renal Addtl Attending Provider Instructions: You were admitted to the hospital with anemia, low calcium and low magnesium. You received 2 units of blood during the dialysis session. Your hemoglobin at discharge is 9.0. New prescription for calcium, vitamin D 3 and magnesium is sent to your pharmacy. Please pepper picker those medication tomorrow. Please follow-up with your primary care doctor and continue dialysis as scheduled. Pending Studies at Discharge: No Stand-Alone Forms: My [employer], Smoking Cessation Medications and DC Order Prescriptions: New magnesium oxide 400 mg (241.3 mg magnesium) Tablet 400 mg PO QAM Qty: 30 0RF cholecalciferol (vitamin D3) 25 mcg (1,000 unit) Capsule 2,000 unit PO QAM Qty: 30 0RF Caltrate 600-D Plus Minerals 600 mg calcium- 800 unit-50 mg Tablet 3 tab PO BID Qty: 90 0RF Continued atorvastatin 40 mg tablet 40 mg PO QAM carvedilol 12.5 mg tablet 12.5 mg PO BIDM ondansetron HCl 8 mg tablet 8 mg PO QAM Rx Instructions: TAKE 1 HOUR PRIOR TO ORAL CHEMOTHERAPY. prednisone 5 mg tablet 5 mg PO DAILY amlodipine 5 mg tablet 5 mg PO QPM prochlorperazine maleate 10 mg tablet 10 mg PO Q6H PRN (Reason: NAUSEA/VOMITING) aspirin 81 mg Tablet,Delayed Release (Dr/Ec) 81 mg PO DAILY tramadol 50 mg tablet 50 mg PO Q6H PRN (Reason: Pain) allopurinol 300 mg tablet 150 mg PO QAM omeprazole 20 mg Tablet,Delayed Release (Dr/Ec) 20 mg PO QAM Trulicity 3 mg/0.5 mL pen injector 3 mg SUBCUT WK Discontinued ergocalciferol (vitamin D2) [Vitamin D2] 1,250 mcg (50,000 unit) capsule 1,250 mcg PO Q4WK calcium carbonate-vitamin D3 [Calcium 500 + D (D3)] 500 mg-3.125 mcg (125 unit) Tablet 1 tab PO BID Discharge Orders: Discharge Order (Routine); Ordered 04/02/22 Ordered By: Aaron Gee Admission Data Admit Date/Time: 03/31/22 12:30 Attending Provider: Aaron Gee Admit Provider: Nash Murcia Primary Care Provider: Peace Overton Other Providers: Nash Murcia ; Radhika Rogel Other Interventions: Discharge Summary Assessment (RN) Last Done: 04/02/22 10:56
[2022-04-02] MEDS ORDERED: amLODIPine BESYLATE 5 MG TAB PO SCH (21:00)
== END 2022-04-02 13:03 | disposition home or self-care (01) ==
LOC: ED 09:40 → SUATTDRO 12:30 → INTOOBSV 12:30 → 2S 12:30